=== PATIENT | male | born 1980 | race Caucasian/White ===

== ENCOUNTER → 2016-04-07 | Outpatient (CLI) | payer OTHER ==
[~2016-04-07] MED LIST: DIAZ5TAB PO; HYDR1TAB97 PO; LUNE1TAB5 PO; PRED20TA PO; TRAM50TA2 PO
[2016-04-07 17:43] LABS: BASO % 0.3 % (0.0-1.0); EOS # 0.1 K/mm3 (0.0-0.50); EOS % 0.8 % (0.0-3.0); LARGE UNSTAINED CELL # 0.2 K/mm3 (0.0-0.4); LARGE UNSTAINED CELL % 1.6 % (0.0-4.0); LYMPH # 1.6 K/mm3 (1.5-4.5); MEAN CORPUSCULAR HEMOGLOBIN 30.3 pg (27.0-33.0); MEAN CORPUSCULAR HGB CONC 34.3 g/dl (32.0-36.5); MEAN CORPUSCULAR VOLUME 88.4 fl (80.0-96.0); MONO # 0.7 K/mm3 (0.0-0.8); MONO % 6.7 % (0.0-5.0); NEUTROPHILS # 8.1 K/mm3 (1.8-7.7); NEUTROPHILS % 75.5 % (36.0-66.0); PLATELET COUNT, AUTOMATED 363 k/mm3 (150-450); RED CELL DISTRIBUTION WIDTH 12.5 % (11.5-14.5); WHITE BLOOD COUNT 10.8 K/mm3 (4.0-10.0)
[2016-04-07 18:40] LABS: ALBUMIN 3.5 GM/DL (3.2-5.2); ALKALINE PHOSPHATASE 100 U/L (45-117); ALT/SGPT 50 U/L (12-78); ANION GAP 10 MEQ/L (8-16); AST/SGOT 15 U/L (15-37); BILIRUBIN,TOTAL 0.3 MG/DL (0.2-1.0); BLOOD UREA NITROGEN 16 MG/DL (7-18); CALCIUM LEVEL 8.7 MG/DL (8.5-10.1); CARBON DIOXIDE LEVEL 27 MEQ/L (21-32); CHLORIDE LEVEL 106 MEQ/L (98-107); CREATININE FOR GFR 0.84 MG/DL (0.70-1.30); GLOMERULAR FILTRATION RATE > 60.0 (>60); GLUCOSE, FASTING 92 MG/DL (70-105); POTASSIUM SERUM 4.3 MEQ/L (3.5-5.1); SODIUM LEVEL 143 MEQ/L (136-145)
[2016-04-07 18:58] LABS: ERYTHROCYTE SEDIMENTATION RATE 30 mm/hr (0-15)
--- NOTE | 2016-04-07 19:32 | REP ---
ORBITS, TWO VIEWS: HISTORY: Foreign body. There is no acute fracture, bone lesion or radiopaque foreign body. Mucosal thickening is present in the left maxillary sinus. IMPRESSION: There is no radiopaque foreign body. Signed by Mitch Hernández MD 04/07/2016 07:32 P
== END ==
LOC: M LAB 15:34
PROVIDERS: ATTEND Psychiatry & Neurology Neurology
DX: R51 Headache (principal)

== ENCOUNTER 2016-04-09 21:18 | Emergency (ER) | payer OTHER ==
[2016-04-09] MEDS ORDERED: KETOROLAC 30 MG/ML VIAL (J1885) As Ordered ONE (22:41)
[2016-04-09 23:26] LABS: ALBUMIN 3.3 GM/DL (3.2-5.2); ALBUMIN/GLOBULIN RATIO 0.77 (1.00-1.93); ALKALINE PHOSPHATASE 83 U/L (45-117); ALT/SGPT 33 U/L (12-78); ANION GAP 6 MEQ/L (8-16); AST/SGOT 10 U/L (15-37); BILIRUBIN,DIRECT 0.2 MG/DL (0.0-0.2); BILIRUBIN,TOTAL 0.5 MG/DL (0.2-1.0); BLOOD UREA NITROGEN 10 MG/DL (7-18); CALCIUM LEVEL 8.4 MG/DL (8.5-10.1); CARBON DIOXIDE LEVEL 33 MEQ/L (21-32); CHLORIDE LEVEL 101 MEQ/L (98-107); GLOMERULAR FILTRATION RATE > 60.0 (>60); GLUCOSE, FASTING 88 MG/DL (70-105); POTASSIUM SERUM 3.8 MEQ/L (3.5-5.1); SODIUM LEVEL 140 MEQ/L (136-145); TOTAL PROTEIN 7.6 GM/DL (6.4-8.2)
[2016-04-09 23:48] LABS: BASO % 0.4 % (0.0-1.0); EOS # 0.2 K/mm3 (0.0-0.50); EOS % 1.2 % (0.0-3.0); LARGE UNSTAINED CELL # 0.3 K/mm3 (0.0-0.4); LARGE UNSTAINED CELL % 1.9 % (0.0-4.0); LYMPH # 1.7 K/mm3 (1.5-4.5); LYMPH % 13.2 % (24.0-44.0); MEAN CORPUSCULAR HEMOGLOBIN 30.5 pg (27.0-33.0); MEAN CORPUSCULAR HGB CONC 34.1 g/dl (32.0-36.5); MEAN CORPUSCULAR VOLUME 89.2 fl (80.0-96.0); MONO # 0.9 K/mm3 (0.0-0.8); MONO % 7.2 % (0.0-5.0); NEUTROPHILS # 9.8 K/mm3 (1.8-7.7); NEUTROPHILS % 76.1 % (36.0-66.0); PLATELET COUNT, AUTOMATED 319 k/mm3 (150-450); RED CELL DISTRIBUTION WIDTH 12.2 % (11.5-14.5); WHITE BLOOD COUNT 12.9 K/mm3 (4.0-10.0)
--- NOTE | 2016-04-10 00:31 | EDDOCDS ---
Physician Documentation [facility] Name: Neal Deleon Age: 35 yrs Sex: Male : 1980 Arrival Date: 04/09/2016 Time: 21:18 Bed I2 / M2 Private MD: [facility] Disposition: 04/09/16 23:52 Discharged to Home/Self Care. Impression: Strain of muscle, fascia and tendon of abdomen, lower back and pelvis. - Condition is Stable. - Discharge Instructions: Back Pain, Adult, Muscle Strain. - Prescriptions for [place] 5- 325 mg Oral Tablet - take 1 tablet by ORAL route every 6 hours As needed MDD: 4 tabs; 12 tablet. Valium 5 mg Oral Tablet - take 1 tablet by ORAL route every 8 hours As needed MDD: 3 tabs; 12 tablet. - Work Release Form - 2 day, Medication Reconciliation, Local Pharmacy Hours form. - Follow up: [facility]; When: Call to arrange an appointment; Reason: Recheck today's complaints, Continuance of care. - Problem is new. - Symptoms have improved. Historical: - Allergies: no known allergies; - Home Meds: 1. Zithromax 250 mg Oral tab 1 tab once daily (Last dose: 04/07/2016) 2. tramadol 50 mg Oral TbDL 50 mg as needed (Last dose: 04/09/2016 11:00) 3. prednisone 20 mg Oral tab 2 tabs once daily (Last dose: 04/07/2016) - PMHx: none; - PSHx: none; - Social history: Smoking status: Patient states was never smoker of tobacco. Patient/guardian denies using alcohol, street drugs, No barriers to communication noted, The patient speaks fluent Albanian, Speaks appropriately for age. - Family history: No immediate family members are acutely ill. - : The pt / caregiver states he / she is not on anticoagulants. Home medication list is obtained from the patient. - Exposure Risk Screening:: None identified. Vital Signs: 04/09 21:19 BP 129 / 68; Pulse 108; Resp 20 S; Temp 100.7(O); Pulse Ox 96% ; Weight 86.18 kg / gr2 189.99 lbs (R); Height 70 in. (177.80 cm) (R); Pain 10/10; 04/10 00:10 BP 100 / 55 LA Supine (auto/reg); Pulse 72 MON; Resp 18 S; Temp 98.2(O); Pulse Ox 96% cln on R/A; Pain 0/10; 04/09 21:19 Body Mass Index 27.26 (86.18 kg, 177.80 cm) gr2 MDM: 04/09 22:35 NS 0.9% 1000 ml IV at bolus once ordered. mo1 22:35 ketorolac 30 mg IVP once ordered. mo1 22:35 IV Saline Lock ordered. mo1 22:35 Undress patient appropriately for examination ordered. mo1 22:35 Diazepam 5 mg IVP once ordered. mo1 22:36 Basic Metabolic Profile Ordered. EDMS 22:36 CBC with Diff Ordered. EDMS 22:36 Lipase Ordered. EDMS 22:36 Liver Profile Ordered. EDMS 22:36 Urine Culture Ordered. EDMS 22:36 NOTHING BY MOUTH+DIET ordered. EDMS 23:37 Financial registration complete. [facility] 23:42 Basic Metabolic Profile Reviewed. mo1 23:43 Lipase Reviewed. mo1 23:43 Liver Profile Reviewed. mo1 04/10 00:16 [facility] Payment Agreement was scanned into [employer] and attached to record. [facility] 00:27 CBC with Diff Reviewed. mo1 Administered Medications: 04/09 22:54 Drug: Diazepam 5 mg [diazepam 5 mg/mL injection syringe (1 mL)] Route: IVP; Site: right rs3 antecubital; 22:55 Drug: NS 0.9% 1000 ml [sodium chloride 0.9 % intravenous solution] Route: IV; Rate: rs3 bolus; Site: right antecubital; 04/10 00:28 Follow up: IV Status: Completed infusion; IV Intake: 1000ml nn1 04/09 22:55 Drug: ketorolac 30 mg [ketorolac 30 mg/mL (1 mL) injection solution (1 mL)] Route: IVP; rs3 Site: right antecubital; Signatures: Dispatcher [employer] EDShahnaz Boykin RN RN ttCatrachito Snowden PA PA mo1 Zora Coats [facility] Jose Garcia RN RN nn1 Sissy Mujica RN rs3 The chart was reviewed and I authenticate all verbal orders and agree with the evaluation and treatment provided.Corrections: (The following items were deleted from the chart) 04/10 00:28 04/09 22:36 URINALYSIS+LAB ordered. EDMS EDMS Attachments: 04/10 00:16 [facility] Payment Agreement [facility] MTDD
--- NOTE | 2016-04-10 00:31 | EDDOCDS ---
Nurse's Notes [facility] Name: Neal Deleon Age: 35 yrs Sex: Male : 1980 Arrival Date: 04/09/2016 Time: 21:18 Bed I2 / M2 [facility] Strain of muscle, fascia and tendon of abdomen, lower back and pelvis Presentation: 04/09 21:25 Presenting complaint: Patient states: right sided back and flank pain -- radiates down ttb right leg x3 weeks -- worse today. Acute neurological deficits are not present. Mechanism of Injury: No Mechanism of Injury. Adult Sepsis Screening: The patient does not have new or worsening altered mentation. Patient's respiratory rate is less than 22. Systolic blood pressure is greater than 100. Patient has a qSOFA score of 0- Negative Sepsis Screen. Suicide/Homicide risk assessment- the patient denies having any suicidal and/or homicidal ideations and does not present with any other emotional, behavioral or mental health complaints. 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 Transition of care: patient was not received from another setting of care. 21:25 Acuity: BI Level 3 ttb 21:25 Method Of Arrival: Walkin/Carried/Asstd ttb Triage Assessment: 21:27 General: Appears uncomfortable, well nourished, well groomed, Behavior is anxious, ttb appropriate for age, cooperative, pleasant, restless. Pain: Location: right lower back pain , radiates to right leg, 7/10. HIV screening NA for this visit Offered previously. Neurological: Level of Consciousness is awake, alert, Moves all extremities. Gait is steady, Speech is normal, Facial symmetry appears normal. EENT: Denies nasal congestion, nasal discharge. Cardiovascular: Chest pain is denied. Respiratory: Airway is patent Respiratory effort is even, unlabored, Reports cough that is non-productive, Denies shortness of breath. GI: Denies constipation, diarrhea, nausea, vomiting, pain. : Denies burning with urination, discharge, inability to void, pain urinary frequency, urgency. Musculoskeletal: Range of motion intact in all extremities. Reports pain in right lower back/flank. Injury Description: No known injury. Historical: - Allergies: no known allergies; - Home Meds: 1. Zithromax 250 mg Oral tab 1 tab once daily (Last dose: 04/07/2016) 2. tramadol 50 mg Oral TbDL 50 mg as needed (Last dose: 04/09/2016 11:00) 3. prednisone 20 mg Oral tab 2 tabs once daily (Last dose: 04/07/2016) - PMHx: none; - PSHx: none; - Social history: Smoking status: Patient states was never smoker of tobacco. Patient/guardian denies using alcohol, street drugs, No barriers to communication noted, The patient speaks fluent Uzbek, Speaks appropriately for age. - Family history: No immediate family members are acutely ill. - : The pt / caregiver states he / she is not on anticoagulants. Home medication list is obtained from the patient. - Exposure Risk Screening:: None identified. Screenin:46 Screening information is obtained from the patient. Fall risk: No risks identified. rs3 Assistance ADL's: requires no assistance with activities of daily living. Abuse/DV Screen: The patient / caregiver reports he/she is: not in a situation that causes fear, pain or injury. Nutritional screening: No deficits noted. Advance Directives: Currently, there is no health care proxy. home support is adequate. Assessment: 22:46 General: Appears in no apparent distress, Behavior is appropriate for age. Pain: rs3 Location: right low back. Respiratory: Airway is patent Respiratory effort is even, unlabored, Respiratory pattern is regular, symmetrical. Musculoskeletal: Circulation, motion, and sensation intact Signs and Symptoms of Compartment Syndrome: no signs of compartment syndrome Reports pain in right low back radiation to right gluteus fish. 22:57 General: Appears uncomfortable, well developed, well nourished, well groomed, Behavior ka4 is appropriate for age, cooperative, pleasant. Neurological: Level of Consciousness is awake, alert, obeys commands, Oriented to person, place, time, [employer] are equal bilaterally Moves all extremities. Gait is steady, Speech is normal, Facial symmetry appears normal, Facial symmetry: tongue is midline. Respiratory: Airway is patent Respiratory effort is even, unlabored, Respiratory pattern is regular, symmetrical. Derm: Skin is intact, is healthy with good turgor, Skin is pink, warm & dry. 04/10 00:25 General: Appears in no apparent distress, comfortable, Behavior is appropriate for age, nn1 cooperative. Neurological: Level of Consciousness is awake, alert, Oriented to person, place, time. Respiratory: Airway is patent Respiratory effort is even, unlabored, Respiratory pattern is regular, symmetrical. Derm: Skin is pink, warm & dry. Vital Signs: 04/09 21:19 BP 129 / 68; Pulse 108; Resp 20 S; Temp 100.7(O); Pulse Ox 96% ; Weight 86.18 kg (R); gr2 Height 70 in. (177.80 cm) (R); Pain 10/10; 04/10 00:10 BP 100 / 55 LA Supine (auto/reg); Pulse 72 MON; Resp 18 S; Temp 98.2(O); Pulse Ox 96% cln on R/A; Pain 0/10; 04/09 21:19 Body Mass Index 27.26 (86.18 kg, 177.80 cm) gr2 Vitals: 04/09 21:19 Log In Time: April 09, 2016 at 21:19. gr2 ED Course: 21:18 Patient visited by Kuldeep Chowdhury. gr2 21:18 Patient moved to Waiting gr2 21:19 [facility] is Private Physician. gr2 21:20 Patient moved to Pre RCE gr2 21:26 Triage Initiated ttb 21:30 Patient visited by Shahnaz Moya RN. ttb 21:43 Patient moved to Triage 2 jmb 22:09 Catrachito Rea PA is PHCP. mo1 22:09 Sergio Lyman DO is Attending Physician. mo1 22:35 Patient visited by Catrachito Rea PA. mo1 22:36 Patient moved to I2 / M2 jmb 22:55 Basic Metabolic Profile Sent. rs3 22:55 CBC with Diff Sent. rs3 22:55 Lipase Sent. rs3 22:56 Liver Profile Sent. ka4 22:56 Inserted saline lock: 20 gauge in right antecubital area and blood collected. The ka4 patient tolerated the procedure well. 22:58 Patient visited by Tomasa Pereyra LPN. ka4 22:58 Patient visited by Tomasa Pereyra LPN. ka4 22:58 Labs drawn. (by ED staff). Sent per order to lab. ka4 23:52 [facility] is Referral Physician. mo1 04/10 00:11 Patient visited by Stephy Yanez PCA. cln 00:16 [facility] Payment Agreement was scanned into [employer] and attached to record. [facility] 00:29 The patient / caregiver is instructed regarding the plan of care and ED course. nn1 00:29 No procedures done that require assistance. nn1 Administered Medications: 04/09 22:54 Drug: Diazepam 5 mg [diazepam 5 mg/mL injection syringe (1 mL)] Route: IVP; Site: right rs3 antecubital; 22:55 Drug: NS 0.9% 1000 ml [sodium chloride 0.9 % intravenous solution] Route: IV; Rate: rs3 bolus; Site: right antecubital; 04/10 00:28 Follow up: IV Status: Completed infusion; IV Intake: 1000ml nn1 04/09 22:55 Drug: ketorolac 30 mg [ketorolac 30 mg/mL (1 mL) injection solution (1 mL)] Route: IVP; rs3 Site: right antecubital; Intake: 04/10 00:28 IV: 1000.00ml; Total: 1000.00ml. nn1 Order Results: Lab Order: Basic Metabolic Profile; [facility] 04[facility] 22:48 Test: GLUCOSE, FASTING; Value: 88; Range: 70-105; Units: MG/DL; Status: F Test: BLOOD UREA NITROGEN; Value: 10; Range: 7-18; Units: MG/DL; Status: F Test: CREATININE FOR GFR; Value: 1.10; Range: 0.70-1.30; Units: MG/DL; Status: F Test: GLOMERULAR FILTRATION RATE; Value: > 60.0; Range: >60; Status: F Test: SODIUM LEVEL; Value: 140; Range: 136-145; Units: MEQ/L; Status: F Test: POTASSIUM SERUM; Value: 3.8; Range: 3.5-5.1; Units: MEQ/L; Status: F Test: CHLORIDE LEVEL; Value: 101; Range: 98-107; Units: MEQ/L; Status: F Test: CARBON DIOXIDE LEVEL; Value: 33; Range: 21-32; Abnormal: Above high normal; Units: MEQ/L; Status: F Test: ANION GAP; Value: 6; Range: 8-16; Abnormal: Below low normal; Units: MEQ/L; Status: F Test: CALCIUM LEVEL; Value: 8.4; Range: 8.5-10.1; Abnormal: Below low normal; Units: MG/DL; Status: F Test Note: ; Units are mL/min/1.73 m2 Chronic Kidney Disease Staging per NKF: Stage I & II GFR >=60 Normal to Mildly Decreased Stage III GFR 30-59 Moderately Decreased Stage IV GFR 15-29 Severely Decreased Stage V GFR <15 Very Little GFR Left ESRD GFR <15 on DIRECTOR NICU Lab Order: CBC with Diff; SPEC'M 04/09/16 22:48 Test: WHITE BLOOD COUNT; Value: 12.9; Range: 4.0-10.0; Abnormal: Above high normal; Units: K/mm3; Status: F Test: RED BLOOD COUNT; Value: 5.18; Range: 4.30-6.10; Units: M/mm3; Status: F Test: HEMOGLOBIN; Value: 15.8; Range: 14.0-18.0; Units: g/dl; Status: F Test: HEMATOCRIT; Value: 46.2; Range: 42.0-52.0; Units: %; Status: F Test: MEAN CORPUSCULAR VOLUME; Value: 89.2; Range: 80.0-96.0; Units: fl; Status: F Test: MEAN CORPUSCULAR HEMOGLOBIN; Value: 30.5; Range: 27.0-33.0; Units: pg; Status: F Test: MEAN CORPUSCULAR HGB CONC; Value: 34.1; Range: 32.0-36.5; Units: g/dl; Status: F Test: RED CELL DISTRIBUTION WIDTH; Value: 12.2; Range: 11.5-14.5; Units: %; Status: F Test: PLATELET COUNT, AUTOMATED; Value: 319; Range: 150-450; Units: k/mm3; Status: F Test: NEUTROPHILS %; Value: 76.1; Range: 36.0-66.0; Abnormal: Above high normal; Units: %; Status: F Test: LYMPH %; Value: 13.2; Range: 24.0-44.0; Abnormal: Below low normal; Units: %; Status: F Test: MONO %; Value: 7.2; Range: 0.0-5.0; Abnormal: Above high normal; Units: %; Status: F Test: EOS %; Value: 1.2; Range: 0.0-3.0; Units: %; Status: F Test: BASO %; Value: 0.4; Range: 0.0-1.0; Units: %; Status: F Test: LARGE UNSTAINED CELL %; Value: 1.9; Range: 0.0-4.0; Units: %; Status: F Test: NEUTROPHILS #; Value: 9.8; Range: 1.8-7.7; Abnormal: Above high normal; Units: K/mm3; Status: F Test: LYMPH #; Value: 1.7; Range: 1.5-4.5; Units: K/mm3; Status: F Test: MONO #; Value: 0.9; Range: 0.0-0.8; Abnormal: Above high normal; Units: K/mm3; Status: F Test: EOS #; Value: 0.2; Range: 0.0-0.50; Units: K/mm3; Status: F Test: BASO #; Value: 0.0; Range: 0.0-0.2; Units: K/mm3; Status: F Test: LARGE UNSTAINED CELL #; Value: 0.3; Range: 0.0-0.4; Units: K/mm3; Status: F Lab Order: Lipase; SPEC'M 04/09/16 22:48 Test: LIPASE; Value: 68; Range: 73-393; Abnormal: Below low normal; Units: U/L; Status: F Lab Order: Liver Profile; SPEC'M 04/09/16 22:48 Test: AST/SGOT; Value: 10; Range: 15-37; Abnormal: Below low normal; Units: U/L; Status: F Test: ALT/SGPT; Value: 33; Range: 12-78; Units: U/L; Status: F Test: ALKALINE PHOSPHATASE; Value: 83; Range: 45-117; Units: U/L; Status: F Test: BILIRUBIN,TOTAL; Value: 0.5; Range: 0.2-1.0; Abnormal: Delta; Units: MG/DL; Status: F Test: BILIRUBIN,DIRECT; Value: 0.2; Range: 0.0-0.2; Units: MG/DL; Status: F Test: TOTAL PROTEIN; Value: 7.6; Range: 6.4-8.2; Units: GM/DL; Status: F Test: ALBUMIN; Value: 3.3; Range: 3.2-5.2; Units: GM/DL; Status: F Test: ALBUMIN/GLOBULIN RATIO; Value: 0.77; Range: 1.00-1.93; Abnormal: Below low normal; Status: F Outcome: 04/09 23:52 Discharge ordered by Provider. mo1 04/10 00:26 Discharge Assessment: Patient awake, alert and oriented x 3. No cognitive and/or nn1 functional deficits noted. Patient verbalized understanding of disposition instructions. patient administered narcotics - yes. Pt provided with safe discharge. 00:28 The following High Risk Discharge criteria are identified: None. Discharged to home nn1 ambulatory, with family. Condition: stable. No special radiology studies were completed. Property :Personal belongings accompany Pt. 00:29 Prescriptions given X 2, Work note provided to patient. nn1 00:29 Patient left the ED. nn1 Signatures: Sissy MujicaRN RN rs3 Shahnaz Moya RN RN Kuldeep Colbert gr2 Catrachito Rea PA PA mo1 Shane Crisostomo,RN RN Tomasa Osborn LPN LPN ka4 Hook, Sandra slh Nunez, NikkoleRN RN nn1 Stephy Yanez, [employer] LABORATORY ASSISTANT cln MTDD
--- NOTE | 2016-04-12 01:31 | EDDOCDS ---
Nurse's Notes [facility] Name: Neal Deleon Age: 35 yrs Sex: Male : 1980 Arrival Date: 04/09/2016 Time: 21:18 Bed I2 / M2 [facility] Diagnosis: Strain of muscle, fascia and tendon of abdomen, lower back and pelvis Presentation: 04/09 21:25 Presenting complaint: Patient states: right sided back and flank pain -- radiates down ttb right leg x3 weeks -- worse today. Acute neurological deficits are not present. Mechanism of Injury: No Mechanism of Injury. Adult Sepsis Screening: The patient does not have new or worsening altered mentation. Patient's respiratory rate is less than 22. Systolic blood pressure is greater than 100. Patient has a qSOFA score of 0- Negative Sepsis Screen. Suicide/Homicide risk assessment- the patient denies having any suicidal and/or homicidal ideations and does not present with any other emotional, behavioral or mental health complaints. 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 Transition of care: patient was not received from another setting of care. 21:25 Acuity: BI Level 3 ttb 21:25 Method Of Arrival: Walkin/Carried/Asstd ttb Triage Assessment: 21:27 General: Appears uncomfortable, well nourished, well groomed, Behavior is anxious, ttb appropriate for age, cooperative, pleasant, restless. Pain: Location: right lower back pain , radiates to right leg, 7/10. HIV screening NA for this visit Offered previously. Neurological: Level of Consciousness is awake, alert, Moves all extremities. Gait is steady, Speech is normal, Facial symmetry appears normal. EENT: Denies nasal congestion, nasal discharge. Cardiovascular: Chest pain is denied. Respiratory: Airway is patent Respiratory effort is even, unlabored, Reports cough that is non-productive, Denies shortness of breath. GI: Denies constipation, diarrhea, nausea, vomiting, pain. : Denies burning with urination, discharge, inability to void, pain urinary frequency, urgency. Musculoskeletal: Range of motion intact in all extremities. Reports pain in right lower back/flank. Injury Description: No known injury. Historical: - Allergies: no known allergies; - Home Meds: 1. Zithromax 250 mg Oral tab 1 tab once daily (Last dose: 04/07/2016) 2. tramadol 50 mg Oral TbDL 50 mg as needed (Last dose: 04/09/2016 11:00) 3. prednisone 20 mg Oral tab 2 tabs once daily (Last dose: 04/07/2016) - PMHx: none; - PSHx: none; - Social history: Smoking status: Patient states was never smoker of tobacco. Patient/guardian denies using alcohol, street drugs, No barriers to communication noted, The patient speaks fluent Wolof, Speaks appropriately for age. - Family history: No immediate family members are acutely ill. - : The pt / caregiver states he / she is not on anticoagulants. Home medication list is obtained from the patient. - Exposure Risk Screening:: None identified. Screenin:46 Screening information is obtained from the patient. Fall risk: No risks identified. rs3 Assistance ADL's: requires no assistance with activities of daily living. Abuse/DV Screen: The patient / caregiver reports he/she is: not in a situation that causes fear, pain or injury. Nutritional screening: No deficits noted. Advance Directives: Currently, there is no health care proxy. home support is adequate. Assessment: 22:46 General: Appears in no apparent distress, Behavior is appropriate for age. Pain: rs3 Location: right low back. Respiratory: Airway is patent Respiratory effort is even, unlabored, Respiratory pattern is regular, symmetrical. Musculoskeletal: Circulation, motion, and sensation intact Signs and Symptoms of Compartment Syndrome: no signs of compartment syndrome Reports pain in right low back radiation to right gluteus fish. 22:57 General: Appears uncomfortable, well developed, well nourished, well groomed, Behavior ka4 is appropriate for age, cooperative, pleasant. Neurological: Level of Consciousness is awake, alert, obeys commands, Oriented to person, place, time, Tso are equal bilaterally Moves all extremities. Gait is steady, Speech is normal, Facial symmetry appears normal, Facial symmetry: tongue is midline. Respiratory: Airway is patent Respiratory effort is even, unlabored, Respiratory pattern is regular, symmetrical. Derm: Skin is intact, is healthy with good turgor, Skin is pink, warm & dry. 04/10 00:25 General: Appears in no apparent distress, comfortable, Behavior is appropriate for age, nn1 cooperative. Neurological: Level of Consciousness is awake, alert, Oriented to person, place, time. Respiratory: Airway is patent Respiratory effort is even, unlabored, Respiratory pattern is regular, symmetrical. Derm: Skin is pink, warm & dry. Vital Signs: 04/09 21:19 BP 129 / 68; Pulse 108; Resp 20 S; Temp 100.7(O); Pulse Ox 96% ; Weight 86.18 kg (R); gr2 Height 70 in. (177.80 cm) (R); Pain 10/10; 04/10 00:10 BP 100 / 55 LA Supine (auto/reg); Pulse 72 MON; Resp 18 S; Temp 98.2(O); Pulse Ox 96% cln on R/A; Pain 0/10; 04/09 21:19 Body Mass Index 27.26 (86.18 kg, 177.80 cm) gr2 Vitals: 04/09 21:19 Log In Time: April 09, 2016 at 21:19. gr2 ED Course: 21:18 Patient visited by Kuldeep Chowdhury. gr2 21:18 Patient moved to Waiting gr2 21:19 [facility] is Private Physician. gr2 21:20 Patient moved to Pre RCE gr2 21:26 Triage Initiated ttb 21:30 Patient visited by Shahnaz Moya RN. ttb 21:43 Patient moved to Triage 2 jmb 22:09 Catrachito Rea PA is PHCP. mo1 22:09 Sergio Lyman DO is Attending Physician. mo1 22:35 Patient visited by Catrachito Rea PA. mo1 22:36 Patient moved to I2 / M2 jmb 22:55 Basic Metabolic Profile Sent. rs3 22:55 CBC with Diff Sent. rs3 22:55 Lipase Sent. rs3 22:56 Liver Profile Sent. ka4 22:56 Inserted saline lock: 20 gauge in right antecubital area and blood collected. The ka4 patient tolerated the procedure well. 22:58 Patient visited by Tomasa Pereyra LPN. ka4 22:58 Patient visited by Tomasa Pereyra LPN. ka4 22:58 Labs drawn. (by ED staff). Sent per order to lab. ka4 23:52 [facility] is Referral Physician. mo1 04/10 00:11 Patient visited by Stephy Yanez PCA. cln 00:16 [facility] Payment Agreement was scanned into [employer] and attached to record. [facility] 00:29 The patient / caregiver is instructed regarding the plan of care and ED course. nn1 00:29 No procedures done that require assistance. nn1 07:19 T-Sheet-- Draft Copy was scanned into [employer] and attached to record. gb Administered Medications: 04/09 22:54 Drug: Diazepam 5 mg [diazepam 5 mg/mL injection syringe (1 mL)] Route: IVP; Site: right rs3 antecubital; 22:55 Drug: NS 0.9% 1000 ml [sodium chloride 0.9 % intravenous solution] Route: IV; Rate: rs3 bolus; Site: right antecubital; 04/10 00:28 Follow up: IV Status: Completed infusion; IV Intake: 1000ml nn1 04/09 22:55 Drug: ketorolac 30 mg [ketorolac 30 mg/mL (1 mL) injection solution (1 mL)] Route: IVP; rs3 Site: right antecubital; Intake: 04/10 00:28 IV: 1000.00ml; Total: 1000.00ml. nn1 Order Results: Lab Order: Basic Metabolic Profile; SPEC'M 04/09/16 22:48 Test: GLUCOSE, FASTING; Value: 88; Range: 70-105; Units: MG/DL; Status: F Test: BLOOD UREA NITROGEN; Value: 10; Range: 7-18; Units: MG/DL; Status: F Test: CREATININE FOR GFR; Value: 1.10; Range: 0.70-1.30; Units: MG/DL; Status: F Test: GLOMERULAR FILTRATION RATE; Value: > 60.0; Range: >60; Status: F Test: SODIUM LEVEL; Value: 140; Range: 136-145; Units: MEQ/L; Status: F Test: POTASSIUM SERUM; Value: 3.8; Range: 3.5-5.1; Units: MEQ/L; Status: F Test: CHLORIDE LEVEL; Value: 101; Range: 98-107; Units: MEQ/L; Status: F Test: CARBON DIOXIDE LEVEL; Value: 33; Range: 21-32; Abnormal: Above high normal; Units: MEQ/L; Status: F Test: ANION GAP; Value: 6; Range: 8-16; Abnormal: Below low normal; Units: MEQ/L; Status: F Test: CALCIUM LEVEL; Value: 8.4; Range: 8.5-10.1; Abnormal: Below low normal; Units: MG/DL; Status: F Test Note: ; Units are mL/min/1.73 m2 Chronic Kidney Disease Staging per NKF: Stage I & II GFR >=60 Normal to Mildly Decreased Stage III GFR 30-59 Moderately Decreased Stage IV GFR 15-29 Severely Decreased Stage V GFR <15 Very Little GFR Left ESRD GFR <15 on NEUROSURGERY PHYSICIAN Lab Order: CBC with Diff; SPEC'M 04/09/16 22:48 Test: WHITE BLOOD COUNT; Value: 12.9; Range: 4.0-10.0; Abnormal: Above high normal; Units: K/mm3; Status: F Test: RED BLOOD COUNT; Value: 5.18; Range: 4.30-6.10; Units: M/mm3; Status: F Test: HEMOGLOBIN; Value: 15.8; Range: 14.0-18.0; Units: g/dl; Status: F Test: HEMATOCRIT; Value: 46.2; Range: 42.0-52.0; Units: %; Status: F Test: MEAN CORPUSCULAR VOLUME; Value: 89.2; Range: 80.0-96.0; Units: fl; Status: F Test: MEAN CORPUSCULAR HEMOGLOBIN; Value: 30.5; Range: 27.0-33.0; Units: pg; Status: F Test: MEAN CORPUSCULAR HGB CONC; Value: 34.1; Range: 32.0-36.5; Units: g/dl; Status: F Test: RED CELL DISTRIBUTION WIDTH; Value: 12.2; Range: 11.5-14.5; Units: %; Status: F Test: PLATELET COUNT, AUTOMATED; Value: 319; Range: 150-450; Units: k/mm3; Status: F Test: NEUTROPHILS %; Value: 76.1; Range: 36.0-66.0; Abnormal: Above high normal; Units: %; Status: F Test: LYMPH %; Value: 13.2; Range: 24.0-44.0; Abnormal: Below low normal; Units: %; Status: F Test: MONO %; Value: 7.2; Range: 0.0-5.0; Abnormal: Above high normal; Units: %; Status: F Test: EOS %; Value: 1.2; Range: 0.0-3.0; Units: %; Status: F Test: BASO %; Value: 0.4; Range: 0.0-1.0; Units: %; Status: F Test: LARGE UNSTAINED CELL %; Value: 1.9; Range: 0.0-4.0; Units: %; Status: F Test: NEUTROPHILS #; Value: 9.8; Range: 1.8-7.7; Abnormal: Above high normal; Units: K/mm3; Status: F Test: LYMPH #; Value: 1.7; Range: 1.5-4.5; Units: K/mm3; Status: F Test: MONO #; Value: 0.9; Range: 0.0-0.8; Abnormal: Above high normal; Units: K/mm3; Status: F Test: EOS #; Value: 0.2; Range: 0.0-0.50; Units: K/mm3; Status: F Test: BASO #; Value: 0.0; Range: 0.0-0.2; Units: K/mm3; Status: F Test: LARGE UNSTAINED CELL #; Value: 0.3; Range: 0.0-0.4; Units: K/mm3; Status: F Lab Order: Lipase; SPEC'M 04/09/16 22:48 Test: LIPASE; Value: 68; Range: 73-393; Abnormal: Below low normal; Units: U/L; Status: F Lab Order: Liver Profile; SPEC'M 04/09/16 22:48 Test: AST/SGOT; Value: 10; Range: 15-37; Abnormal: Below low normal; Units: U/L; Status: F Test: ALT/SGPT; Value: 33; Range: 12-78; Units: U/L; Status: F Test: ALKALINE PHOSPHATASE; Value: 83; Range: 45-117; Units: U/L; Status: F Test: BILIRUBIN,TOTAL; Value: 0.5; Range: 0.2-1.0; Abnormal: Delta; Units: MG/DL; Status: F Test: BILIRUBIN,DIRECT; Value: 0.2; Range: 0.0-0.2; Units: MG/DL; Status: F Test: TOTAL PROTEIN; Value: 7.6; Range: 6.4-8.2; Units: GM/DL; Status: F Test: ALBUMIN; Value: 3.3; Range: 3.2-5.2; Units: GM/DL; Status: F Test: ALBUMIN/GLOBULIN RATIO; Value: 0.77; Range: 1.00-1.93; Abnormal: Below low normal; Status: F Outcome: 04/09 23:52 Discharge ordered by Provider. mo1 04/10 00:26 Discharge Assessment: Patient awake, alert and oriented x 3. No cognitive and/or nn1 functional deficits noted. Patient verbalized understanding of disposition instructions. patient administered narcotics - yes. Pt provided with safe discharge. 00:28 The following High Risk Discharge criteria are identified: None. Discharged to home nn1 ambulatory, with family. Condition: stable. No special radiology studies were completed. Property :Personal belongings accompany Pt. 00:29 Prescriptions given X 2, Work note provided to patient. nn1 00:29 Patient left the ED. nn1 Signatures: Lissette Carter, Reg Reg gb Sissy Mujica,RN RN rs3 Shahnaz Moya RN RN Kuldeep Colbert Michael, PA PA mo1 Shane Crisostomo,RN RN Tomasa Osborn LPN LPN Zora Zaman NikkoleRN RN nn1 Stephy Yanez, LEASE ATTENDANT LEASE ATTENDANT cln Chart Complete MTDD
--- NOTE | 2016-04-12 01:31 | EDDOCDS ---
Physician Documentation [facility] Name: Neal Deleon Age: 35 yrs Sex: Male : 1980 Arrival Date: 04/09/2016 Time: 21:18 Bed I2 / M2 Private MD: [facility] [place] Disposition: 04/09/16 23:52 Discharged to Home/Self Care. Impression: Strain of muscle, fascia and tendon of abdomen, lower back and pelvis. - Condition is Stable. - Discharge Instructions: Back Pain, Adult, Muscle Strain. - Prescriptions for Morrice 5- 325 mg Oral Tablet - take 1 tablet by ORAL route every 6 hours As needed MDD: 4 tabs; 12 tablet. Valium 5 mg Oral Tablet - take 1 tablet by ORAL route every 8 hours As needed MDD: 3 tabs; 12 tablet. - Work Release Form - 2 day, Medication Reconciliation, Local Pharmacy Hours form. - Follow up: [facility] [place]; When: Call to arrange an appointment; Reason: Recheck today's complaints, Continuance of care. - Problem is new. - Symptoms have improved. Historical: - Allergies: no known allergies; - Home Meds: 1. Zithromax 250 mg Oral tab 1 tab once daily (Last dose: 04/07/2016) 2. tramadol 50 mg Oral TbDL 50 mg as needed (Last dose: 04/09/2016 11:00) 3. prednisone 20 mg Oral tab 2 tabs once daily (Last dose: 04/07/2016) - PMHx: none; - PSHx: none; - Social history: Smoking status: Patient states was never smoker of tobacco. Patient/guardian denies using alcohol, street drugs, No barriers to communication noted, The patient speaks fluent Danish, Speaks appropriately for age. - Family history: No immediate family members are acutely ill. - : The pt / caregiver states he / she is not on anticoagulants. Home medication list is obtained from the patient. - Exposure Risk Screening:: None identified. Vital Signs: 04/09 21:19 BP 129 / 68; Pulse 108; Resp 20 S; Temp 100.7(O); Pulse Ox 96% ; Weight 86.18 kg / gr2 189.99 lbs (R); Height 70 in. (177.80 cm) (R); Pain 10/10; 04/10 00:10 BP 100 / 55 LA Supine (auto/reg); Pulse 72 MON; Resp 18 S; Temp 98.2(O); Pulse Ox 96% cln on R/A; Pain 0/10; 04/09 21:19 Body Mass Index 27.26 (86.18 kg, 177.80 cm) gr2 MDM: 04/09 22:35 NS 0.9% 1000 ml IV at bolus once ordered. mo1 22:35 ketorolac 30 mg IVP once ordered. mo1 22:35 IV Saline Lock ordered. mo1 22:35 Undress patient appropriately for examination ordered. mo1 22:35 Diazepam 5 mg IVP once ordered. mo1 22:36 Basic Metabolic Profile Ordered. EDMS 22:36 CBC with Diff Ordered. EDMS 22:36 Lipase Ordered. EDMS 22:36 Liver Profile Ordered. EDMS 22:36 Urine Culture Ordered. EDMS 22:36 NOTHING BY MOUTH+DIET ordered. EDMS 23:37 Financial registration complete. [facility] 23:42 Basic Metabolic Profile Reviewed. mo1 23:43 Lipase Reviewed. mo1 23:43 Liver Profile Reviewed. mo1 04/10 00:16 [facility] Payment Agreement was scanned into [employer] and attached to record. [facility] 00:27 CBC with Diff Reviewed. mo1 07:19 T-Sheet-- Draft Copy was scanned into [employer] and attached to record. gb Administered Medications: 04/09 22:54 Drug: Diazepam 5 mg [diazepam 5 mg/mL injection syringe (1 mL)] Route: IVP; Site: right rs3 antecubital; 22:55 Drug: NS 0.9% 1000 ml [sodium chloride 0.9 % intravenous solution] Route: IV; Rate: rs3 bolus; Site: right antecubital; 04/10 00:28 Follow up: IV Status: Completed infusion; IV Intake: 1000ml nn1 04/09 22:55 Drug: ketorolac 30 mg [ketorolac 30 mg/mL (1 mL) injection solution (1 mL)] Route: IVP; rs3 Site: right antecubital; Signatures: Dispatcher [employer] EDMS Lissette Carter, Reg Reg gb Shahnaz Moya, MARINA RN ttb Catrachito Rea PA PA mo1 Zora Coats [facility] Jose GarciaRN RN nn1 Sissy Mujica RN rs3 The chart was reviewed and I authenticate all verbal orders and agree with the evaluation and treatment provided.Corrections: (The following items were deleted from the chart) 04/10 00:28 04/09 22:36 URINALYSIS+LAB ordered. EDMS EDMS Attachments: 04/10 00:16 [facility] Payment Agreement [facility] 07:19 T-Sheet-- Draft Copy gb Chart Complete MTDD
--- NOTE | 2016-04-12 01:31 | EDDOCDS ---
Physician Documentation [facility] Name: Neal Deleon Age: 35 yrs Sex: Male : 1980 Arrival Date: 04/09/2016 Time: 21:18 Bed I2 / M2 Private MD: [facility] [place] Disposition: 04/09/16 23:52 Discharged to Home/Self Care. Impression: Strain of muscle, fascia and tendon of abdomen, lower back and pelvis. - Condition is Stable. - Discharge Instructions: Back Pain, Adult, Muscle Strain. - Prescriptions for Os[place] 5- 325 mg Oral Tablet - take 1 tablet by ORAL route every 6 hours As needed MDD: 4 tabs; 12 tablet. Valium 5 mg Oral Tablet - take 1 tablet by ORAL route every 8 hours As needed MDD: 3 tabs; 12 tablet. - Work Release Form - 2 day, Medication Reconciliation, Local Pharmacy Hours form. - Follow up: [facility] [place]; When: Call to arrange an appointment; Reason: Recheck today's complaints, Continuance of care. - Problem is new. - Symptoms have improved. Historical: - Allergies: no known allergies; - Home Meds: 1. Zithromax 250 mg Oral tab 1 tab once daily (Last dose: 04/07/2016) 2. tramadol 50 mg Oral TbDL 50 mg as needed (Last dose: 04/09/2016 11:00) 3. prednisone 20 mg Oral tab 2 tabs once daily (Last dose: 04/07/2016) - PMHx: none; - PSHx: none; - Social history: Smoking status: Patient states was never smoker of tobacco. Patient/guardian denies using alcohol, street drugs, No barriers to communication noted, The patient speaks fluent Azeri, Speaks appropriately for age. - Family history: No immediate family members are acutely ill. - : The pt / caregiver states he / she is not on anticoagulants. Home medication list is obtained from the patient. - Exposure Risk Screening:: None identified. Vital Signs: 04/09 21:19 BP 129 / 68; Pulse 108; Resp 20 S; Temp 100.7(O); Pulse Ox 96% ; Weight 86.18 kg / gr2 189.99 lbs (R); Height 70 in. (177.80 cm) (R); Pain 10/10; 04/10 00:10 BP 100 / 55 LA Supine (auto/reg); Pulse 72 MON; Resp 18 S; Temp 98.2(O); Pulse Ox 96% cln on R/A; Pain 0/10; 04/09 21:19 Body Mass Index 27.26 (86.18 kg, 177.80 cm) gr2 MDM: 04/09 22:35 NS 0.9% 1000 ml IV at bolus once ordered. mo1 22:35 ketorolac 30 mg IVP once ordered. mo1 22:35 IV Saline Lock ordered. mo1 22:35 Undress patient appropriately for examination ordered. mo1 22:35 Diazepam 5 mg IVP once ordered. mo1 22:36 Basic Metabolic Profile Ordered. EDMS 22:36 CBC with Diff Ordered. EDMS 22:36 Lipase Ordered. EDMS 22:36 Liver Profile Ordered. EDMS 22:36 Urine Culture Ordered. EDMS 22:36 NOTHING BY MOUTH+DIET ordered. EDMS 23:37 Financial registration complete. [facility] 23:42 Basic Metabolic Profile Reviewed. mo1 23:43 Lipase Reviewed. mo1 23:43 Liver Profile Reviewed. mo1 04/10 00:16 [facility] Payment Agreement was scanned into [employer] and attached to record. [facility] 00:27 CBC with Diff Reviewed. mo1 07:19 T-Sheet-- Draft Copy was scanned into [employer] and attached to record. gb Administered Medications: 04/09 22:54 Drug: Diazepam 5 mg [diazepam 5 mg/mL injection syringe (1 mL)] Route: IVP; Site: right rs3 antecubital; 22:55 Drug: NS 0.9% 1000 ml [sodium chloride 0.9 % intravenous solution] Route: IV; Rate: rs3 bolus; Site: right antecubital; 04/10 00:28 Follow up: IV Status: Completed infusion; IV Intake: 1000ml nn1 04/09 22:55 Drug: ketorolac 30 mg [ketorolac 30 mg/mL (1 mL) injection solution (1 mL)] Route: IVP; rs3 Site: right antecubital; Signatures: Dispatcher [employer] EDMS Lissette Carter, Reg Reg gb Shahnaz Moya, MARINA RN ttb Catrachito Rea PA PA mo1 Zora Coats [facility] Jose GarciaRN RN nn1 Sissy Mujica RN rs3 The chart was reviewed and I authenticate all verbal orders and agree with the evaluation and treatment provided.Corrections: (The following items were deleted from the chart) 04/10 00:28 04/09 22:36 URINALYSIS+LAB ordered. EDMS EDMS Attachments: 04/10 00:16 [facility] Payment Agreement [facility] 07:19 T-Sheet-- Draft Copy gb Chart Complete MTDD
[2016-04-13] MEDS ORDERED: HYDR1TAB97 PO (02:51)
== END 2016-04-10 00:29 | disposition home or self-care (01) ==
LOC: M ED 21:18
DX: S39.012A Strain of muscle, fascia and tendon of lower back, initial encounter (principal); X58.XXXA Exposure to other specified factors, initial encounter; Y92.019 Unspecified place in single-family (private) house as the place of occurrence of the external cause; Y93.89 Activity, other specified; Y99.8 Other external cause status; Z79.899 Other long term (current) drug therapy
CPT/HCPCS: 36415; 80048; 80076; 83690; 85025; 96361; 96374; 96375; 99284; J1885; J3360

== ENCOUNTER 2016-04-12 20:32 | Inpatient (IN) | payer OTHER ==
[~2016-04-12] VITALS: Ht 198.1 cm; Wt 86.1 kg
[2016-04-12] MEDS ORDERED: KETOROLAC 30 MG/ML VIAL (J1885) As Ordered ONE (22:19)
[2016-04-12] MEDS ORDERED: ONDANSETRON 4MG/2ML VIAL (J2405) As Ordered ONE (22:19)
[2016-04-12 22:46] LABS: BASO % 0.3 % (0.0-1.0); EOS # 0.4 K/mm3 (0.0-0.50); EOS % 2.6 % (0.0-3.0); LARGE UNSTAINED CELL # 0.4 K/mm3 (0.0-0.4); LARGE UNSTAINED CELL % 2.7 % (0.0-4.0); LYMPH # 1.9 K/mm3 (1.5-4.5); LYMPH % 13.7 % (24.0-44.0); MEAN CORPUSCULAR HEMOGLOBIN 30.6 pg (27.0-33.0); MEAN CORPUSCULAR VOLUME 87.3 fl (80.0-96.0); MONO # 0.8 K/mm3 (0.0-0.8); MONO % 5.7 % (0.0-5.0); NEUTROPHILS # 10.4 K/mm3 (1.8-7.7); PLATELET COUNT, AUTOMATED 316 k/mm3 (150-450); WHITE BLOOD COUNT 13.9 K/mm3 (4.0-10.0)
[2016-04-12 23:00] LABS: ANION GAP 9 MEQ/L (8-16); BLOOD UREA NITROGEN 10 MG/DL (7-18); CALCIUM LEVEL 8.7 MG/DL (8.5-10.1); CARBON DIOXIDE LEVEL 27 MEQ/L (21-32); CHLORIDE LEVEL 99 MEQ/L (98-107); GLOMERULAR FILTRATION RATE > 60.0 (>60); GLUCOSE, FASTING 108 MG/DL (70-105); POTASSIUM SERUM 3.8 MEQ/L (3.5-5.1); SODIUM LEVEL 135 MEQ/L (136-145)
[2016-04-12] MEDS ORDERED: cefTRIAXone SOD 1 GM VIAL (J0696) As Ordered ONE (23:10)
[2016-04-12] MEDS ORDERED: METOCLOPRAMIDE INJ 10MG/2ML VIAL (J2765) As Ordered ONE (23:22)
[2016-04-12] MEDS ORDERED: MORPHINE 4 MG/ML 1ML SYRINGE As Ordered ONE (23:22)
[2016-04-12] MEDS ORDERED: ACETAMINOPHEN 325 MG TAB As Ordered ONE (23:22)
[2016-04-12] MEDS ORDERED: ISOVUE-370 76% 100ML VIAL (Q9967) As Ordered ONE (23:38)
--- NOTE | 2016-04-13 01:40 | REPUSA ---
CLINICAL HISTORY: Abdominal pain. TECHNIQUE: Multiple axial, sagittal and coronal CT images were obtained through the abdomen and pelvi s after administration of intravenous contrast material. COMMENTS: The liver is of uniform attenuation without mass or defect. There is no intra or extrahepatic biliary ductal dilatation. The spleen is normal. The gallbladder is within normal limits. The pancreas is of normal contour and attenuation characteristics. There is no evidence of adrenal mass. Heterogeneous nephrogram of the right kidney. 3.5 cm ill-defined hypodense lesion in the mid aspect o f the right kidney with associated perirenal fat stranding. Associated well defined hypodense areas w ithin the central aspect of the lesion with the largest measuring 1.5 cm. There is no evidence of renal or ureteral mass. No renal or ureteral calculi are identified. There is no hydroureter or hydronephrosis. No evidence for appendicitis. There is no bowel wall thickening. No evidence for small or large gabrielle l obstruction. There is no evidence of abdominal ascites or lymphadenopathy. Mild large bowel fecal s tasis. There is no evidence of intrinsic or extrinsic bladder mass. There is no pelvic ascites or lymphadeno flako. Prior appendectomy. Images of the lung bases show no evidence of pleural or parenchymal mass. There are no pleural effusi ons. The bony structures are free of lytic or blastic lesions. Multilevel degenerative changes are seen in volving the thoracolumbar spine. Scattered calcifications are seen involving the aorta and major bran ches compatible with atherosclerosis. IMPRESSION: Right pyelonephritis. Intrarenal multifocal phlegmon formation. Clinical evaluation and follow up are suggested. Prior appendectomy. Thank you for your kind referral of this patient.
[2016-04-13 02:20] LABS: INR 1.16
[2016-04-13] MEDS ORDERED: ONDANSETRON 4MG/2ML VIAL (J2405) IV PRN (02:30)
[2016-04-13] MEDS ORDERED: cefTRIAXone SOD 1 GM in D5W MINI-BAG PLUS 50 ML IV SCH (02:30)
[2016-04-13] MEDS ORDERED: LUNE1TAB5 PO (02:51)
[2016-04-13] MEDS ORDERED: TRAM50TA2 PO (02:51)
[2016-04-13] MEDS ORDERED: HYDR-3713 PO (02:51)
[2016-04-13] MEDS ORDERED: DIAZ5TAB PO (02:51)
[2016-04-13] MEDS ORDERED: PRED20TA PO (02:51)
--- NOTE | 2016-04-13 02:59 | EDDOCDS ---
Physician Documentation [facility] Name: Neal Deleon Age: 35 yrs Sex: Male : 1980 Arrival Date: 04/12/2016 Time: 20:32 Bed I5 / M5 Private MD: NDAries LITTLEJOHN Disposition: 04/13/16 02:13 Hospitalization ordered by Elina Christopher for Observation. 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 - Bed requested for M PED. - Status is Observation. af2 - Condition is Stable. - Problem is new. - Symptoms are unchanged. Historical: - Allergies: No known drug Allergies; - Home Meds: 1. prednisone 20 mg Oral tab 2 tabs once daily 2. tramadol 50 mg Oral TbDL 50 mg as needed 3. Zithromax 250 mg Oral tab 1 tab once daily 4. hydrocodone-acetaminophen 5-325 mg Oral tab 1 tab every 4-6 hours 5. muscle relaxer Unknown - PMHx: none; - PSHx: none; - Social history: Smoking status: Patient states former smoker of tobacco. No barriers to communication noted, The patient speaks fluent Macedonian. - Family history: Not pertinent. - : The pt / caregiver states he / she is not on anticoagulants. Home medication list is obtained from the patient. - Exposure Risk Screening:: None identified. Vital Signs: 04/12 20:34 BP 126 / 78; Pulse 109; Resp 18 S; Temp 100.2(O); Pulse Ox 97% on R/A; Weight 87.09 kg gr2 / 192 lbs (R); Height 78 in. (198.12 cm) (R); Pain 6/10; 23:17 BP 96 / 54; Pulse 75; Resp 18; Temp 100.0; Pulse Ox 95% ; Pain 9/10; ajs 23:23 BP 100 / 72 RA Supine (man/lg); ajs 04/13 00:10 BP 112 / 72 RA Supine (man/lg); ajs 01:58 BP 101 / 59; Pulse 59; Resp 18; Temp 96.8; Pulse Ox 98% ; ajs 02:57 BP 115 / 70; Pulse 59; Resp 18; Temp 96.2(O); Pulse Ox 96% on R/A; af2 01/08 20:34 Body Mass Index 22.19 (87.09 kg, 198.12 cm) gr2 MDM: 04/12 22:12 IV Saline Lock ordered. ar2 22:12 NS 0.9% 1000 ml IV at bolus once ordered. ar2 22:12 ketorolac 30 mg IVP once ordered. ar2 22:12 Ondansetron 4 mg IVP once ordered. ar2 22:13 CBC with Diff Ordered. EDMS 22:13 MED Profile Ordered. EDMS 22:13 UA Ordered. EDMS 22:13 Urine Culture Ordered. EDMS 22:13 -Influenza A&B Rapid Antigen - Nose Ordered. EDMS 22:14 Chest, 2 View (pa\E\lat) Ordered. EDMS 22:24 Financial registration complete. [facility] 22:24 [facility] Payment Agreement was scanned into [employer] and attached to record. gjb 23:06 CBC with Diff Reviewed. ar2 23:06 MED Profile Reviewed. ar2 23:06 UA Reviewed. ar2 23:06 -Influenza A&B Rapid Antigen - Nose Reviewed. ar2 23:08 cefTRIAXone 1 grams IVPB once over 30 mins; dilute in 50mL of NS or D5W ordered. ar2 23:10 CT ABD & PELVIS: IV Contrast Only Ordered. EDMS 23:15 morphine 4 mg IVP once ordered. ar2 23:15 Metoclopramide 10 mg IV at 40 mg/hr once over 15 mins ordered. ar2 23:15 Vital Signs ordered. ar2 23:15 Acetaminophen Tablet 975 mg PO once ordered. ar2 23:19 -Blood Culture (Adults Only), peripheral from different site, or from device/port/PICC ar2 etc. if present ordered. 23:20 Lactic Acid (Joe tube on ice) Ordered. EDMS 23:20 -Blood Culture Ordered. EDMS 23:22 BLOOD CULTURES Ordered. EDMS 23:31 -Blood Culture (Adults Only), peripheral from different site, or from device/port/PICC ajs etc. if present complete. 04/13 01:29 Lactic Acid (Joe tube on ice) Reviewed. cc10 01:59 CT ABD & PELVIS: IV Contrast Only Reviewed. cc10 02:08 NOTHING BY MOUTH+DIET ordered. EDMS 02:09 BED REQUEST+ADM ordered. EDMS 02:09 Pt & Aptt Ordered. EDMS 02:14 GC & Chlamydia Amplification Ordered. EDMS 02:26 SPUTUM CULTURE AND GRAM STAIN Ordered. EDMS 02:30 Admission / Observation Status ordered. EDMS 02:31 REGULAR DIET ordered. EDMS 02:31 COMPLETE BLOOD COUNT Ordered. EDMS 02:31 BASIC METABOLIC PROFILE Ordered. EDMS 02:31 HIV 1&2 ANTIBODY SCREEN Ordered. EDMS 02:31 HERPES SIMPLEX 1&2 IgM Ordered. EDMS 02:47 C REACTIVE PROTEIN QUANTITATIV Ordered. EDMS Administered Medications: 04/12 22:39 Drug: Ondansetron 4 mg Route: IVP; Site: left antecubital; [facility] 22:40 Drug: NS 0.9% 1000 ml [sodium chloride 0.9 % intravenous solution] Route: IV; Rate: bcj bolus; Site: left antecubital; 04/13 00:12 Follow up: IV Status: Completed infusion [facility] 04/12 22:40 Drug: ketorolac 30 mg [ketorolac 30 mg/mL (1 mL) injection solution (1 mL)] Route: IVP; [facility] Site: left antecubital; 22:58 Follow up: Response: Pain is decreased [facility] 23:30 Drug: Metoclopramide 10 mg [metoclopramide 5 mg/mL injection solution] Route: IV; Rate: bcj 40 mg/hr; Infused Over: 15 mins; Site: left antecubital; 23:57 Follow up: IV Status: Completed infusion [facility] 23:30 Drug: Acetaminophen 975 mg [acetaminophen 325 mg tablet (3 tabs)] Route: PO; j 23:41 Drug: cefTRIAXone 1 grams [ceftriaxone 1 gram solution for injection] Route: IVPB; bcj Infused Over: 30 mins; Site: left antecubital; 04/13 00:12 Follow up: IV Status: Completed infusion [facility] 00:12 Drug: morphine 4 mg [morphine 4 mg/mL intravenous cartridge (1 mL)] Route: IVP; Site: bc left antecubital; Signatures: Dispatcher [employer] Hang Cartagena RN RN Maddy Griffin, Sofa Back Upholsterer Unit ml3 Jimmy Andrade PA-C PA-C ar2 Lynn Hou Colin, PA-C PA-C cc10 Divya Palacios RN RN af2 Marija Bernal The chart was reviewed and I authenticate all verbal orders and agree with the evaluation and treatment provided.Corrections: (The following items were deleted from the chart) 02:41 02:31 Chlamydia & GC Amplification ordered. EDMS EDMS 02:47 02:39 C REACTIVE PROTEIN QUANTITATIV ordered. EDMS EDMS Attachments: 04/12 22:24 [facility] [place] lisa MTDD
--- NOTE | 2016-04-13 02:59 | EDDOCDS ---
Nurse's Notes [facility] Name: Neal Deleon Age: 35 yrs Sex: Male : 1980 Arrival Date: 04/12/2016 Time: 20:32 Bed I5 / M5 [facility] Diagnosis: Nonobstructive reflux-associated chronic pyelonephritis Presentation: 04/12 20:41 Presenting complaint: Patient states: sharp pain in right lower back, headache, pain af2 all over, rash in genital area, cough, fever. pt seen in ER 3 times past week for same. Acute neurological deficits are not present. Mechanism of Injury: No Mechanism of Injury. Adult Sepsis Screening: The patient does not have new or worsening altered mentation. Patient's respiratory rate is less than 22. Systolic blood pressure is greater than 100. Patient has a qSOFA score of 0- Negative Sepsis Screen. Suicide/Homicide risk assessment- the patient denies having any suicidal and/or homicidal ideations and does not present with any other emotional, behavioral or mental health complaints. 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 Transition of care: patient was not received from another setting of care. 20:41 Acuity: BI Level 4 af2 20:41 Method Of Arrival: Walkin/Carried/Asstd af2 Triage Assessment: 20:44 General: Appears in no apparent distress, Behavior is cooperative. Pain: Location: back af2 Pain currently is 8 out of 10 on a pain scale. HIV screening NA for this visit Offered previously. GI: Reports nausea, vomiting. Musculoskeletal: Reports pain in back. Historical: - Allergies: No known drug Allergies; - Home Meds: 1. prednisone 20 mg Oral tab 2 tabs once daily 2. tramadol 50 mg Oral TbDL 50 mg as needed 3. Zithromax 250 mg Oral tab 1 tab once daily 4. hydrocodone-acetaminophen 5-325 mg Oral tab 1 tab every 4-6 hours 5. muscle relaxer Unknown - PMHx: none; - PSHx: none; - Social history: Smoking status: Patient states former smoker of tobacco. No barriers to communication noted, The patient speaks fluent Georgian. - Family history: Not pertinent. - : The pt / caregiver states he / she is not on anticoagulants. Home medication list is obtained from the patient. - Exposure Risk Screening:: None identified. Screenin:58 Screening information is obtained from the patient. Fall risk: No risks identified. bcj Assistance ADL's: requires no assistance with activities of daily living. Abuse/DV Screen: The patient / caregiver reports he/she is: not in a situation that causes fear, pain or injury. Nutritional screening: No deficits noted. Advance Directives: Currently, there is no health care proxy. home support is adequate. Assessment: 21:47 General: Appears uncomfortable, Behavior is appropriate for age, cooperative. Pain: mb9 Location: low back area Pain currently is 8 out of 10 on a pain scale. Pain radiates to right leg. Neurological: Level of Consciousness is awake, alert, Oriented to person, place, time. Respiratory: Airway is patent Respiratory effort is even, unlabored. 22:58 General: Appears uncomfortable, Behavior is cooperative. Pain: Location: back Pain bcj currently is 6 out of 10 on a pain scale. Pain radiates to right leg. Derm: Skin is pink, warm & dry. 23:37 Adult Sepsis Screening: The patient does not have new or worsening altered mentation. bcj Patient's respiratory rate is less than 22. Systolic blood pressure is less than or equal to 100 (1 point). Patient has a qSOFA score of 1- Negative Sepsis Screen. General: Appears in no apparent distress, Behavior is cooperative. Pain: Location: back Pain currently is 6 out of 10 on a pain scale. Derm: Skin is pink, warm & dry. 04/13 01:22 General: assumed care of pt at this time. rr even and unlabored. pt lying on stretcher af2 resting quietly on stretcher. will continue to monitor.. 02:07 General: pt updated regarding plan of care at this time. rr even and unlabored. at af2 bedside. . 02:50 General: Appears in no apparent distress, Behavior is appropriate for age, cooperative, af2 pt resting quietly with eyes closed, arouses easily to name. remains at bedside. report called to marina connolly on peds, she has agreed to assume care of pt. . Neurological: Level of Consciousness is awake, alert. Respiratory: Airway is patent Respiratory effort is even, unlabored. Derm: Skin is pink, warm & dry. Vital Signs: 04/12 20:34 BP 126 / 78; Pulse 109; Resp 18 S; Temp 100.2(O); Pulse Ox 97% on R/A; Weight 87.09 kg gr2 (R); Height 78 in. (198.12 cm) (R); Pain 6/10; 23:17 BP 96 / 54; Pulse 75; Resp 18; Temp 100.0; Pulse Ox 95% ; Pain 9/10; ajs 23:23 BP 100 / 72 RA Supine (man/lg); ajs 04/13 00:10 BP 112 / 72 RA Supine (man/lg); ajs 01:58 BP 101 / 59; Pulse 59; Resp 18; Temp 96.8; Pulse Ox 98% ; ajs 02:57 BP 115 / 70; Pulse 59; Resp 18; Temp 96.2(O); Pulse Ox 96% on R/A; af2 04/12 20:34 Body Mass Index 22.19 (87.09 kg, 198.12 cm) gr2 Vitals: 04/12 20:34 Log In Time: April 12, 2016 at 20:34. gr2 ED Course: 20:33 Patient visited by Kuldeep Chowdhury. gr2 20:33 Patient moved to Waiting gr2 20:34 [facility], Aries Meyer is Private Physician. gr2 20:35 Patient visited by Kuldeep Chowdhury. gr2 20:35 Patient moved to Pre RCE gr2 20:43 Triage Initiated af2 20:44 Patient visited by Divya Palacios,MARINA. af2 21:05 Patient moved to Triage 3 cln 21:49 Jimmy Andrade [facility]-C [facility] ar2 21:49 Marcus Call DO is Attending Physician. ar2 21:56 Patient visited by Jimmy Andrade PA-C. ar2 22:13 Eloina Sosa, RN is Primary Nurse. mb9 22:13 Patient moved to I5 / M5 mb9 22:18 Urine Culture Sent. cln 22:18 UA Sent. cln 22:24 [facility] Payment Agreement was scanned into [employer] and attached to record. gjb 22:58 No apparent distress. Resting quietly. awaiting re-evaluation by ER physician. bcj 22:58 The patient / caregiver is instructed regarding the plan of care and ED course. Patient bcj has correct armband on for positive identification. Placed in gown. Bed in low position. Call light in reach. Side rails up X 1. Adult w/ patient. 22:58 Inserted saline lock: 20 gauge in left antecubital area. Labs drawn. (by ED staff). bcj Sent per order to lab. 23:00 Patient visited by Hang Campos RN. bcj 23:18 Patient visited by Lynn Hou. ajs 23:23 Patient visited by Lynn Hou. ajs 23:37 No apparent distress. Resting quietly. awaiting re-evaluation by ER physician. bcj 23:37 -Blood Culture Sent. ajs 23:37 Lactic Acid (Joe tube on ice) Sent. ajs 23:37 BLOOD CULTURES Sent. ajs 23:37 IV is intact. bcj 23:38 Patient visited by Hang Campos RN. bcj 04/13 00:10 Patient visited by Lynn Hou. ajs 00:42 Primary Nurse role handed off by Eloina Sosa RN kb5 00:48 PHCP role handed off by Jimmy Andrade PA-C cc10 00:48 Harley Peraza PA-C is PHCP. cc10 01:01 Patient visited by Divya Palacios RN. af2 01:23 Patient visited by Divya Palacios RN. af2 01:46 CT ABD & PELVIS: IV Contrast Only Returned. EDMS 01:58 Patient visited by Lynn Hou. ajs 02:07 Patient visited by Divya Palacios RN. af2 02:12 Elina Christopher is Hospitalizing Provider. cc10 02:52 No procedures done that require assistance. af2 02:53 Patient visited by Divya Palacios RN. af2 Administered Medications: 04/12 22:39 Drug: Ondansetron 4 mg Route: IVP; Site: left antecubital; bcj 22:40 Drug: NS 0.9% 1000 ml [sodium chloride 0.9 % intravenous solution] Route: IV; Rate: bcj bolus; Site: left antecubital; 04/13 00:12 Follow up: IV Status: Completed infusion bcj 04/12 22:40 Drug: ketorolac 30 mg [ketorolac 30 mg/mL (1 mL) injection solution (1 mL)] Route: IVP; bcj Site: left antecubital; 22:58 Follow up: Response: Pain is decreased bcj 23:30 Drug: Metoclopramide 10 mg [metoclopramide 5 mg/mL injection solution] Route: IV; Rate: bcj 40 mg/hr; Infused Over: 15 mins; Site: left antecubital; 23:57 Follow up: IV Status: Completed infusion bcj 23:30 Drug: Acetaminophen 975 mg [acetaminophen 325 mg tablet (3 tabs)] Route: PO; j 23:41 Drug: cefTRIAXone 1 grams [ceftriaxone 1 gram solution for injection] Route: IVPB; bcj Infused Over: 30 mins; Site: left antecubital; 04/13 00:12 Follow up: IV Status: Completed infusion j 00:12 Drug: morphine 4 mg [morphine 4 mg/mL intravenous cartridge (1 mL)] Route: IVP; Site: bcj left antecubital; Order Results: Lab Order: CBC with Diff; SPEC'M 04/12/16 22:30 Test: WHITE BLOOD COUNT; Value: 13.9; Range: 4.0-10.0; Abnormal: Above high normal; Units: K/mm3; Status: F Test: RED BLOOD COUNT; Value: 5.21; Range: 4.30-6.10; Units: M/mm3; Status: F Test: HEMOGLOBIN; Value: 15.9; Range: 14.0-18.0; Units: g/dl; Status: F Test: HEMATOCRIT; Value: 45.5; Range: 42.0-52.0; Units: %; Status: F Test: MEAN CORPUSCULAR VOLUME; Value: 87.3; Range: 80.0-96.0; Units: fl; Status: F Test: MEAN CORPUSCULAR HEMOGLOBIN; Value: 30.6; Range: 27.0-33.0; Units: pg; Status: F Test: MEAN CORPUSCULAR HGB CONC; Value: 35.0; Range: 32.0-36.5; Units: g/dl; Status: F Test: RED CELL DISTRIBUTION WIDTH; Value: 12.0; Range: 11.5-14.5; Units: %; Status: F Test: PLATELET COUNT, AUTOMATED; Value: 316; Range: 150-450; Units: k/mm3; Status: F Test: NEUTROPHILS %; Value: 75.0; Range: 36.0-66.0; Abnormal: Above high normal; Units: %; Status: F Test: LYMPH %; Value: 13.7; Range: 24.0-44.0; Abnormal: Below low normal; Units: %; Status: F Test: MONO %; Value: 5.7; Range: 0.0-5.0; Abnormal: Above high normal; Units: %; Status: F Test: EOS %; Value: 2.6; Range: 0.0-3.0; Units: %; Status: F Test: BASO %; Value: 0.3; Range: 0.0-1.0; Units: %; Status: F Test: LARGE UNSTAINED CELL %; Value: 2.7; Range: 0.0-4.0; Units: %; Status: F Test: NEUTROPHILS #; Value: 10.4; Range: 1.8-7.7; Abnormal: Above high normal; Units: K/mm3; Status: F Test: LYMPH #; Value: 1.9; Range: 1.5-4.5; Units: K/mm3; Status: F Test: MONO #; Value: 0.8; Range: 0.0-0.8; Units: K/mm3; Status: F Test: EOS #; Value: 0.4; Range: 0.0-0.50; Units: K/mm3; Status: F Test: BASO #; Value: 0.0; Range: 0.0-0.2; Units: K/mm3; Status: F Test: LARGE UNSTAINED CELL #; Value: 0.4; Range: 0.0-0.4; Units: K/mm3; Status: F Lab Order: MED Profile; SPEC'M 04/12/16 22:30 Test: GLUCOSE, FASTING; Value: 108; Range: 70-105; Abnormal: Above high normal; Units: MG/DL; Status: F Test: BLOOD UREA NITROGEN; Value: 10; Range: 7-18; Units: MG/DL; Status: F Test: CREATININE FOR GFR; Value: 0.90; Range: 0.70-1.30; Units: MG/DL; Status: F Test: GLOMERULAR FILTRATION RATE; Value: > 60.0; Range: >60; Status: F Test: SODIUM LEVEL; Value: 135; Range: 136-145; Abnormal: Below low normal; Units: MEQ/L; Status: F Test: POTASSIUM SERUM; Value: 3.8; Range: 3.5-5.1; Units: MEQ/L; Status: F Test: CHLORIDE LEVEL; Value: 99; Range: 98-107; Units: MEQ/L; Status: F Test: CARBON DIOXIDE LEVEL; Value: 27; Range: 21-32; Units: MEQ/L; Status: F Test: ANION GAP; Value: 9; Range: 8-16; Units: MEQ/L; Status: F Test: CALCIUM LEVEL; Value: 8.7; Range: 8.5-10.1; Units: MG/DL; Status: F Test Note: ; Units are mL/min/1.73 m2 Chronic Kidney Disease Staging per NKF: Stage I & II GFR >=60 Normal to Mildly Decreased Stage III GFR 30-59 Moderately Decreased Stage IV GFR 15-29 Severely Decreased Stage V GFR <15 Very Little GFR Left ESRD GFR <15 on SURGICAL NURSE PRACTITIONER Lab Order: UA; SPEC'M 04/12/16 22:15 Test: APPEARANCE, URINE; Value: CLEAR; Range: CLEAR; Status: F Test: COLOR, URINE; Value: YELLOW; Range: YELLOW; Status: F Test: PH,URINE; Value: 8.0; Range: 5.0-9.0; Units: UNITS; Status: F Test: SPECIFIC GRAVITY URINE AUTO; Value: 1.009; Range: 1.002-1.035; Status: F Test: PROTEIN, URINE AUTO; Value: NEGATIVE; Range: NEGATIVE; Units: mg/dL; Status: F Test: GLUCOSE, URINE (UA) AUTO; Value: NEGATIVE; Range: NEGATIVE; Units: mg/dL; Status: F Test: KETONE, URINE AUTO; Value: NEGATIVE; Range: NEGATIVE; Units: mg/dL; Status: F Test: UROBILINOGEN, URINE AUTO; Value: 2.0; Range: 0.0-2.0; Abnormal: Above high normal; Units: mg/dL; Status: F Test: BILIRUBIN, URINE AUTO; Value: NEGATIVE; Range: NEGATIVE; Status: F Test: NITRITE, URINE AUTO; Value: NEGATIVE; Range: NEGATIVE; Status: F Test: LEUKOCYTE ESTERASE, URINE AUTO; Value: 2+; Range: NEGATIVE; Abnormal: Above high normal; Status: F Test: BLOOD, URINE BLOOD; Value: NEGATIVE; Range: NEGATIVE; Status: F Test: WBC, URINE AUTO; Value: 43; Range: 0-3; Abnormal: Above high normal; Units: /HPF; Status: F Test: RBC, URINE AUTO; Value: 2; Range: 0-3; Units: /HPF; Status: F Test: BACTERIA, URINE AUTO; Value: 1+; Range: NEGATIVE; Abnormal: Above high normal; Status: F Test: SQUAMOUS EPITHELIAL CELL UR AU; Value: 0; Range: 0-6; Units: /HPF; Status: F Test: HYALINE CAST, URINE AUTO; Value: 0; Range: 0-1; Units: /LPF; Status: F Lab Order: -Influenza A&B Rapid Antigen - Nose; SPEC'M 04/12/16 22:30 Test: INFLUENZA A RAPID SCR by ICA; Value: INFLUENZA A RESULTS NEGATIVE; Status: F Test: INFLUENZA A RAPID SCR by ICA; Value: Comments:; Status: F Test: INFLUENZA B RAPID SCR by ICA; Value: INFLUENZA B RESULTS NEGATIVE; Status: F Test Note: ; The Influenza test is a direct rapid immunoassay for the qualitative detection of Influenza viral antigen. Cell culture (Viral Culture) testing should be considered to confirm NEGATIVE results and to assist in detecting other viruses that can provide similar clinical symptoms. Please contact the lab within 24 hours ([phone]) if confirmatory testing is desired. Lab Order: Lactic Acid (Joe tube on ice); SPEC'M 04/12/16 23:32 Test: LACTIC ACID LEVEL, LACTATE; Value: 0.6; Range: 0.4-2.0; Units: MMOL/L; Status: F Lab Order: Pt & Aptt; SPEC'M 04/12/16 22:30 Test: PROTHROMBIN TIME; Value: 14.9; Range: 12.3-14.5; Abnormal: Above high normal; Units: SECONDS; Status: F Test: INR; Value: 1.16; Status: F Test: PARTIAL THROMBOPLASTIN TIME; Value: 36.6; Range: 26.6-37.1; Units: SECONDS; Status: F Test Note: ; THERAPUTIC HUMAN INR VALUES INDICATIONS NORMAL RANGES PROPHYLAXIS/TREATMENT OF: VENOUS THROMBOSIS 2.0-3.0 PULMONARY EMBOLISM 2.0-3.0 PREVENTION OF SYSTEMIC EMBOLISM FROM: TISSUE HEART VALVES 2.0-3.0 ACUTE MYOCARDIAL INFARCTION 2.0-3.0 VALVULAR HEART DISEASE 2.0-3.0 ATRIAL FIBRILLATION 2.0-3.0 MECHANICAL VALVES(HIGH RISK) 2.5-3.5 RECURRENT MYOCARDIAL INFARCTION 2.5-3.5 Radiology Order: CT ABD & PELVIS: IV Contrast Only Test: CT ABD & PELVIS: IV Contrast Only REASON FOR EXAMINATION: right flank pain ? pyelonephritis; ; CLINICAL HISTORY: Abdominal pain.; TECHNIQUE: Multiple axial, sagittal and coronal CT images were obtained through the abdomen and pelvi; s after administration of intravenous contrast material.; COMMENTS:; The liver is of uniform attenuation without mass or defect. There is no intra or extrahepatic biliary; ductal dilatation. The spleen is normal. The gallbladder is within normal limits. The pancreas is of; normal contour and attenuation characteristics. There is no evidence of adrenal mass.; Heterogeneous nephrogram of the right kidney. 3.5 cm ill-defined hypodense lesion in the mid aspect o; f the right kidney with associated perirenal fat stranding. Associated well defined hypodense areas w; ithin the central aspect of the lesion with the largest measuring 1.5 cm.; There is no evidence of renal or ureteral mass. No renal or ureteral calculi are identified. There is; no hydroureter or hydronephrosis.; No evidence for appendicitis. There is no bowel wall thickening. No evidence for small or large gabrielle; l obstruction. There is no evidence of abdominal ascites or lymphadenopathy. Mild large bowel fecal s; tasis.; There is no evidence of intrinsic or extrinsic bladder mass. There is no pelvic ascites or lymphadeno; flako. Prior appendectomy.; Images of the lung bases show no evidence of pleural or parenchymal mass. There are no pleural effusi; ons.; The bony structures are free of lytic or blastic lesions. Multilevel degenerative changes are seen in; volving the thoracolumbar spine. Scattered calcifications are seen involving the aorta and major bran; ches compatible with atherosclerosis.; IMPRESSION:; Right pyelonephritis.; Intrarenal multifocal phlegmon formation.; Clinical evaluation and follow up are suggested.; Prior appendectomy.; Thank you for your kind referral of this patient.; ; Outcome: 02:13 Decision to Hospitalize by Provider. cc10 02:52 Discharge Assessment: Patient awake, alert and oriented x 3. No cognitive and/or af2 functional deficits noted. Patient verbalized understanding of disposition instructions. patient administered narcotics - yes. Patient was admitted to the hospital or transferred to another facility. The following High Risk Discharge criteria are identified: None. Admitted to Pediatrics accompanied by tech, family with patient, via stretcher, with chart. Condition: stable. CT Study completed. Property :Personal belongings accompany Pt. 02:58 Patient left the ED. af2 Signatures: Dispatcher [employer] EDMS Hang Campos, RN RN Shay Torres, PROCESSING ASSOCIATE PROCESSING ASSOCIATE kb5 Jimmy Andrade, PA-C PA-C ar2 Lynn Hou Gainslee gr2 Harley Peraza, PAVictor Manuel PA-C cc10 Catrachito Dominguez,RN RN mb9 Divya Palacios RN RN af2 Marija Bernal Crystal, PROCESSING ASSOCIATE PROCESSING ASSOCIATE cln [facility]
[2016-04-13 03:00] VITALS: BP 110/73
--- NOTE | 2016-04-13 03:18 | HPE ---
DATE OF ADMISSION: 04/13/2016 PRIMARY CARE PROVIDER: Aries Meyer [facility] ([facility]). HISTORY OF PRESENT ILLNESS: This patient is a 35-year-old male with no significant past medical history, presented to [facility] on 04/12/2016, for persistent right flank pain. Patient stated he has been having the right flank pain for the past 6 weeks and he has been in and out of the hospital, mainly in the [facility] in [place]. He did not get any diagnosis; he had three [facility] Emergency Department (ED) visits over the past week. Patient stated the pain is sharp, originated in the right flank area, worsened with palpation and the pain will radiate to the posterior right buttock into the leg. Other associated symptoms include fever, chills, and headache. He also noted to have a productive cough with brownish sputum. Those never happened before. Patient also noted to have a tingling bilaterally radiating down from the elbow to the fingertips. The right flank pain has been persistent in intensity for the past 6 weeks. Patient also noted to have vesicular blister located within his pubic area. It started showing up 2 days ago and he never had it before. Patient denies multiple partners. Denied any history of sexually transmitted disease (STD). When patient arrived in the emergency room, patient had a normal blood pressure with a pulse of 109, temperature 100.2. Patient received 1 liter of normal saline bolus and patient was started on intravenous (IV) Rocephin and IV morphine due to a diagnosis of pyelonephritis from CT and physical exam. The hospitalist team was called for admission. ALLERGIES: No known drug allergies. HOME MEDICATIONS: None. Previously, patient had been in and out of the emergency room in different hospital. Patient was given a short course of medications such as pain control and prednisone and azithromycin. PAST MEDICAL HISTORY: None. PAST SURGICAL HISTORY: None. SOCIAL HISTORY: Patient used to smoke 15 years ago. Drinks mixed drinks twice a month. Denies any recreational drug use. Patient denies recent sick contact. Patient has a girlfriend. REVIEW OF SYSTEMS: GENERAL: Positive fever, chills. HEENT: Positive headaches intermittently for the past 6 weeks. No vision changes. No auditory changes. CARDIOVASCULAR: No chest pain. No palpitations. RESPIRATORY: Positive for productive cough with yellowish sputum. No wheezes. GASTROINTESTINAL: No nausea. No vomiting. No abdominal pain. No diarrhea. GENITOURINARY: Positive right flank pain radiating to the posterior buttock. MUSCULOSKELETAL: No joint swelling or pain. NEUROLOGICAL: Numbness from the bilateral elbows radiating to the hand fingertips. OBJECTIVE: VITAL SIGNS: Blood pressure is 101/59, pulse 59, respirations 18, temperature 96.8, pulse oximetry is 98% in room air. Body weight is 87 kg. Body height is 198 cm. GENERAL: Fatigued, mild to moderate distress, oriented times three. Patient has excessive sweating that soaked through the whole bed sheet. HEENT: Normocephalic, atraumatic. Extraocular motor grossly intact. CARDIOVASCULAR: Positive S1, S2, regular rate. LUNGS: Clear to auscultation bilaterally. ABDOMEN: Soft, nontender, nondistended, bowel sounds present. No rebound. No guarding. MUSCULOSKELETAL: Positive right-sided costovertebral angle (CVA) tenderness. During the percussion, will elicit sharp pain radiating down to the right buttock area and the right lower posterior thigh. No lower extremity edema. No sign of cyanosis. DERMATOLOGICAL: Positive ruptured blister located in the suprapubic area with erythema base. No purulent discharge noted. No vesicular lesion found on the penis. NEUROLOGICAL: Sensation to fine touch grossly intact. Muscle strength 5/5. Microbiology: Blood cultures pending. Urine culture pending. Influenza is negative. IMAGING STUDIES: CT of the abdomen and the pelvis with contrast shows right-sided pyelonephritis. Intrarenal multifocal phlegmon formation. ASSESSMENT AND PLAN: 1. Pyelonephritis. Patient will be admitted to medical/surgical floor under inpatient status. Will followup with urine cultures. Patient will continue on intravenous (IV) fluid. Patient was empirically started on Rocephin. Will follow with GC/chlamydia and HIV. 2. Vesicular blister near the private area. Will follow with herpes lab studies. 3. Deep venous thrombosis (DVT) prophylaxis. Patient is a young patient who does not have an increased risk of DVT. No anticoagulation is indicated at this moment.
[2016-04-13] MEDS: PERCOCET 5MG/325MG TAB PO PRN ×4 (03:22→18:03)
[2016-04-13] MEDS: NS 1,000 ML IV SCH ×4 (03:23→23:45)
[2016-04-13 06:56] LABS: MEAN CORPUSCULAR HEMOGLOBIN 30.7 pg (27.0-33.0); MEAN CORPUSCULAR HGB CONC 34.8 g/dl (32.0-36.5); MEAN CORPUSCULAR VOLUME 88.3 fl (80.0-96.0); RED CELL DISTRIBUTION WIDTH 12.1 % (11.5-14.5); WHITE BLOOD COUNT 10.1 K/mm3 (4.0-10.0)
[2016-04-13 07:16] LABS: ANION GAP 7 MEQ/L (8-16); BLOOD UREA NITROGEN 12 MG/DL (7-18); CALCIUM LEVEL 8.3 MG/DL (8.5-10.1); CARBON DIOXIDE LEVEL 29 MEQ/L (21-32); CHLORIDE LEVEL 103 MEQ/L (98-107); CREATININE FOR GFR 0.91 MG/DL (0.70-1.30); GLOMERULAR FILTRATION RATE > 60.0 (>60); GLUCOSE, FASTING 90 MG/DL (70-105); SODIUM LEVEL 139 MEQ/L (136-145)
[2016-04-13 08:09] VITALS: BP 111/67
--- NOTE | 2016-04-13 08:40 | REP ---
Clinical: Cough and fever . Comparison: None Technique: PA and lateral. Findings: The mediastinum and cardiac silhouette are normal. The lung chi are clear and without acute consolidation, effusion, or pneumothorax. The skeletal structures are intact and normal. Impression: 1. No acute cardiopulmonary process. Signed by Dario Redman MD 04/13/2016 08:32 A
[2016-04-13 08:59] LABS: CONTROL LINE INT CTR LINE PRESENT; HIV SCRN NEGATIVE (NEGATIVE); HIV SCRN1 NEGATIVE (NEGATIVE)
[2016-04-13 12:26] VITALS: BP 123/77
[2016-04-13] MEDS: cefTRIAXone SOD 2 GM in D5W MINI-BAG PLUS 50 ML IV SCH (13:42)
[2016-04-13] MEDS: BENZONATATE 100 MG CAP PO PRN (14:30)
--- NOTE | 2016-04-13 14:45 | IPNPDOC ---
Date of Service/Time Apr 12, 2016 at 20:32 Progress Note Hospitalist Progress Note Subjective: Mr. Deleon does continue to have persistent right flank pain at this time, however he is not complaining much during our interview. He reports that he feels as though this all may have began approximately 6 weeks ago when he got a tattoo around Thanksgiving on his left shoulder, and he subsequently developed a boil which he ignored. The boil began to grow and get worse, therefore he lanced it himself and with the help of his fiance was trying to express the purulent material. He believes that this drove infection even deeper because of secondary boil appeared shortly thereafter a few inches superiorly from the original one, and ever since this time he has been feeling sickly. After that he developed his flank pain which has brought him to the emergency department multiple times, he has also developed a terrible persistent nonproductive cough for which she was given the diagnosis of bronchitis in one of the urgent care visits, and this is why he has prednisone on his home med list. He is feeling approximately the same this morning as he did not last night. Objective: General: Awake, alert, reclined in a hospital bed. He does appear to be in mild discomfort at this time. HEENT: Head normocephalic, atraumatic, sclera are nonicteric. Hearing is grossly intact to conversation. Respiratory: Clear to auscultation bilaterally with no wheezes, rales, or rhonchi. Cardiovascular: Regular rate and rhythm, with no rubs, gallops, or murmur. Abdomen: Soft, nontender, nondistended, no hepatosplenomegaly appreciated. Bowel sounds present. He is tender to palpation in the right flank Extremities: 2+ pulses in the radial and dorsalis pedis bilaterally. No evidence of clubbing or cyanosis. Assessment/Plan: 1. Renal abscess versus phlegmon and right kidney. Urology has been consulted. It is unlikely that he has had a renal abscess for the past 6 weeks, therefore I have suspicion that this may be a septic emboli from endocarditis, therefore an EKG and echocardiogram has been ordered. Blood cultures are still pending, urine culture is pending as well. We'll continue with the empiric antibiotic of Rocephin. 2. Cough. This is been largely nonproductive, however he was able to generate some whitish sputum which has been sent for sputum culture. He has been treated outpatient with antibiotics whose name he cannot remember, and prednisone 3. Genital ulcer. Herpes serology is still pending. Chlamydia, gonorrhea, and HIV are all negative. 4. DVT prophylaxis. Patient is at low risk for DVT, ambulation is encouraged. I have discussed this case with Dr. Haines who suggests follow up CT in one month. I have discussed the case with the patient's mother by phone at his request. He has developed increasing cough, and flank pain later in the evening. Further tests have been ordered, fluid and pain medicine given. I have both independently examined this patient as well as reviewed documentation. I have discussed the findings in detail with the author the findings and plan of treatment as documented in the note. I will continue to follow the patient and offer further guidance to the patients care as necessary. [place] VS, I&O, 24H, Fishbone VS, I&O, 24H, Fishbone Vital Signs Date Time Temp Pulse Resp B/P Pulse Ox O2 Delivery O2 Flow Rate FiO2 04/13/16 13:34 18 04/13/16 12:26 98.0 78 123/77 100 Room Air I&O- Last 24 Hours up to 6 AM 04/13/16 06:00 Intake Total 120 ml Output Total 550 ml Balance -430 ml Laboratory Tests 2 04/12/16 22:15: Urine Amorphous Sediment , Urine Appearance CLEAR, Urine Color YELLOW, Urine pH 8.0, Urine Specific [place] 1.009, Urine Protein NEGATIVE, Urine Glucose (UA) NEGATIVE, Urine Ketones NEGATIVE, Urine Urobilinogen 2.0H, Urine Bilirubin NEGATIVE, Urine Leukocyte Esterase 2+H, Urine Bacteria (Auto) 1+H, Urine Blood NEGATIVE, Urine Calcium Carbonate Cryst(Auto) , Urine Calcium Oxalate Cryst ( Auto) , Urine Calcium Phosphate [place] (Auto) , Urine Cellular Casts , Urine Cystine Crystals , Urine Granular Casts (Auto) , Urine Hyaline Casts (Auto) 0, Urine Leucine Crystals , Urine Mucus (Auto) , Urine Nitrite NEGATIVE, Urine Oval Fat Bodies (Auto) , Urine RBC (Auto) 2, Urine Renal Epithelial Cells , Urine Sperm (Auto) , Urine Squamous Epithelial Cells 0, Urine Transitional Epithelial Cells , Urine Trichomonas (Auto) , Urine Triple Phosphate Cryst (Auto ) , Urine Tyrosine Crystals , Urine Uric Acid Crystals (Auto) , Urine WBC (Auto ) 43H, Urine Waxy Casts (Auto) , Urine Yeast-Like Cells (Auto) 04/12/16 22:30: Activated Partial Thromboplast Time 36.6, Anion Gap 9, White Blood Count 13.9H, Red Blood Count 5.21, Hemoglobin 15.9, Hematocrit 45.5, Mean Corpuscular Volume 87.3, Mean Corpuscular Hemoglobin 30.6, Mean Corpuscular Hemoglobin Concent 35.0 , Red Cell Distribution Width 12.0, Platelet Count 316, Neutrophils (%) (Auto) 75.0H, Lymphocytes (%) (Auto) 13.7L, Monocytes (%) (Auto) 5.7H, Eosinophils (%) (Auto) 2.6, Basophils (%) (Auto) 0.3, Neutrophils # (Auto) 10.4H, Lymphocytes # (Auto) 1.9, Monocytes # (Auto) 0.8, Eosinophils # (Auto) 0.4, Basophils # (Auto ) 0.0, Blood Urea Nitrogen 10, Creatinine 0.90, Sodium Level 135L, Potassium Level 3.8, Chloride Level 99, Carbon Dioxide Level 27, Calcium Level 8.7, Glomerular Filtration Rate > 60.0, Large Unclassified Cells # 0.4, Large Unclassified Cells % 2.7, Prothromb Time International Ratio 1.16, Prothrombin Time 14.9H 04/12/16 23:32: Lactic Acid Level 0.6 04/13/16 03:35: Chlamydia trachomatis DNA (MARILEE) NEGATIVE, Neisseria gonorrhoeae DNA (MARILEE) NEGATIVE 04/13/16 06:31: Anion Gap 7L, C-Reactive Protein, Quantitative 10.60H, Blood Urea Nitrogen 12, Creatinine 0.91, Sodium Level 139, Potassium Level 4.0, Chloride Level 103, Carbon Dioxide Level 29, Calcium Level 8.3L, Glomerular Filtration Rate > 60.0 Laboratory Tests 04/12/16 22:30 Calcium Level 8.7, Red Blood Count 5.21, Mean Corpuscular Volume 87.3, Mean Corpuscular Hemoglobin 30.6, Mean Corpuscular Hemoglobin Concent 35.0, Red Cell Distribution Width 12.0, Neutrophils (%) (Auto) 75.0 H, Lymphocytes (%) (Auto) 13.7 L, Monocytes (%) (Auto) 5.7 H, Eosinophils (%) (Auto) 2.6, Basophils (%) ( Auto) 0.3, Neutrophils # (Auto) 10.4 H, Lymphocytes # (Auto) 1.9, Monocytes # ( Auto) 0.8, Eosinophils # (Auto) 0.4, Basophils # (Auto) 0.0 04/13/16 06:31 Calcium Level 8.3 L, Red Blood Count 4.65, Mean Corpuscular Volume 88.3, Mean Corpuscular Hemoglobin 30.7, Mean Corpuscular Hemoglobin Concent 34.8, Red Cell Distribution Width 12.1 Microbiology 04/12/16 Blood Culture, Received Pending 04/12/16 Blood Culture, Received Pending 04/13/16 Gram Stain - Final, Resulted 04/13/16 Sputum Culture, Resulted Pending 04/12/16 Influenza Virus Type A Antigen - Final, Complete 04/12/16 Influenza Virus Type B Antigen - Final, Complete 04/12/16 Urine Culture, Received Pending ALENA CONCEPCION DO Apr 13, 2016 14:45 STEVEN FUNES MD Apr 13, 2016 20:45
--- NOTE | 2016-04-13 14:59 | ECHO ---
DATE OF PROCEDURE: 04/13/2016 REFERRING PHYSICIAN: Dr. Neal Gutierrez INDICATION: Acute infective endocarditis. HEIGHT 198 cm. WEIGHT: 87.1 kg. MEASUREMENTS: Ventricular septum - 0.87 cm Posterior wall 1.01 - cm Left ventricle diastole - 5.4 cm Left atrium - 3.5 cm LVOT - 2.1 cm Aortic root - 3.1 cm Inferior vena cava - 2.1 cm (greater than 50% respiratory variation) DOPPLER MEASUREMENTS: Aortic valve velocity - 120 cm/s LVOT velocity - 80.5 cm/s Mitral E velocity - 62.2 cm/s, Mitral A velocity - 60.7 cm/s Mitral E deceleration time 236 ms. Trace tricuspid regurgitation. Pulmonary artery systolic pressure 41 mmHg by pulmonary acceleration time method. MITRAL ANNULAR TISSUE DOPPLER: E prime septal - 7.5 cm/s DESCRIPTION: The rhythm was sinus. The image quality was fair. This is a 2D, M-mode, color flow Doppler and pulsed wave Doppler examination to include mitral annular tissue Doppler. CONCLUSIONS: 1. No vegetations identified on any of the cardiac valves. Please keep in mind that transesophageal echocardiogram (DOROTHY) is more sensitive for detection of endocarditis than trans thoracic echocardiography. 2. Normal LV size and systolic function. Normal LV wall thickness. LVEF of 60% by visual estimate. Normal right ventricle size and systolic function. 3. Suggestive of moderate elevation of pulmonary artery systolic pressure. 4. No pericardial effusion. 5. Normal LV diastolic function.
[2016-04-13 16:00] VITALS: BP 110/70
[2016-04-13 18:19] VITALS: BP 135/74
[2016-04-13] MEDS ORDERED: SODIUM CHLORIDE 0.9% 1000 ML IV ONE ×2 (18:45→20:45)
[2016-04-13] MEDS: KETOROLAC 30 MG/ML VIAL (J1885) IV PRN (18:59)
[2016-04-13 19:37] LABS: BASO % 0.4 % (0.0-1.0); EOS # 0.7 K/mm3 (0.0-0.50); EOS % 6.6 % (0.0-3.0); LARGE UNSTAINED CELL # 0.2 K/mm3 (0.0-0.4); LARGE UNSTAINED CELL % 2.2 % (0.0-4.0); LYMPH # 1.4 K/mm3 (1.5-4.5); LYMPH % 13.2 % (24.0-44.0); MEAN CORPUSCULAR HEMOGLOBIN 30.1 pg (27.0-33.0); MEAN CORPUSCULAR VOLUME 88.6 fl (80.0-96.0); MONO # 0.5 K/mm3 (0.0-0.8); MONO % 4.8 % (0.0-5.0); NEUTROPHILS # 7.6 K/mm3 (1.8-7.7); NEUTROPHILS % 72.7 % (36.0-66.0); PLATELET COUNT, AUTOMATED 285 k/mm3 (150-450); WHITE BLOOD COUNT 10.5 K/mm3 (4.0-10.0)
--- NOTE | 2016-04-13 19:51 | REP ---
Clinical: Fever. Comparison: 04/16/2014. Findings: There is a 10 mm noncalcified nodule in the apical segment left lower lobe (image 38) which represents a new finding compared to prior examination. The remainder of lung chi are clear and without further consolidation, nodule or mass lesion. Pleural effusion/reaction or pneumothorax. Tracheobronchial tree is patent. No obvious adenopathy. Mediastinum demonstrates normal heart/pericardium and vasculature. Surrounding musculoskeletal structures are intact. Impression: 10 mm noncalcified nodule in the apical segment left lower lobe requires 3-month follow-up. Signed by Dario Redman MD 04/13/2016 07:43 P
--- NOTE | 2016-04-13 19:57 | REP ---
Clinical: Fever. Comparison: Contrast enhanced CT dated 04/13/2016 at 12:18 a.m.. Findings: Moderate right perinephric stranding and edematous enlargement to the right kidney along with complex 4 cm hypodense lesion is again noted in the right kidney consistent with pyelonephritis given the patient's flank pain and fever. Less likely differential diagnosis includes renal mass lesion. Left kidney demonstrates nonobstructing 3 mm nephrolith. Liver, spleen, pancreas, gallbladder, and bilateral adrenal glands are normal for noncontrast evaluation. The enteric system is unremarkable and without obstruction or acute inflammatory process. Pelvis demonstrates normal bladder and age appropriate prostate/seminal vesicles. Evidence for prior appendectomy. No pelvic fluid or ascites. Subcentimeter retroperitoneal lymph nodes may be reactive. Musculoskeletal structures are intact. Impression: Incoordination with prior contrast enhanced examination, there is mildly increased right perinephric stranding which may reflect the suspected acute pyelonephritis. The right complex hypodense renal lesion is poorly evaluated by the lack of contrast. Concordant chest CT demonstrates a 10 mm nodular density in the left lower lobe. Differential diagnosis must include a renal cell carcinoma and solitary metastatic focus. Signed by Dario Redman MD 04/13/2016 07:49 P
[2016-04-13 20:00] VITALS: BP 135/77
[2016-04-13 20:00] LABS: ALBUMIN 2.7 GM/DL (3.2-5.2); ALBUMIN/GLOBULIN RATIO 0.75 (1.00-1.93); ALKALINE PHOSPHATASE 90 U/L (45-117); ALT/SGPT 51 U/L (12-78); ANION GAP 11 MEQ/L (8-16); AST/SGOT 24 U/L (15-37); BILIRUBIN,TOTAL 0.5 MG/DL (0.2-1.0); BLOOD UREA NITROGEN 8 MG/DL (7-18); CALCIUM LEVEL 8.1 MG/DL (8.5-10.1); CARBON DIOXIDE LEVEL 25 MEQ/L (21-32); CHLORIDE LEVEL 102 MEQ/L (98-107); CREATININE FOR GFR 0.89 MG/DL (0.70-1.30); GLOMERULAR FILTRATION RATE > 60.0 (>60); GLUCOSE, FASTING 116 MG/DL (70-105); POTASSIUM SERUM 4.1 MEQ/L (3.5-5.1); SODIUM LEVEL 138 MEQ/L (136-145); TOTAL PROTEIN 6.3 GM/DL (6.4-8.2)
[2016-04-14] VITALS: BP 124/68
[2016-04-14] MEDS: cefTRIAXone SOD 2 GM in D5W MINI-BAG PLUS 50 ML IV SCH ×2 (02:38→13:34)
[2016-04-14] MEDS: ACETAMINOPHEN TAB 650MG DOSE (2X325MG) PO PRN ×2 (02:45→13:26)
[2016-04-14] MEDS: BENZONATATE 100 MG CAP PO PRN ×3 (02:45→20:53)
[2016-04-14 04:00] VITALS: BP 99/58
[2016-04-14] MEDS: KETOROLAC 30 MG/ML VIAL (J1885) IV PRN ×2 (05:19→13:26)
[2016-04-14] MEDS: NS 1,000 ML IV SCH ×4 (05:19→20:52)
[2016-04-14 07:23] LABS: MEAN CORPUSCULAR HEMOGLOBIN 31.1 pg (27.0-33.0); MEAN CORPUSCULAR HGB CONC 34.8 g/dl (32.0-36.5); MEAN CORPUSCULAR VOLUME 89.6 fl (80.0-96.0); RED CELL DISTRIBUTION WIDTH 12.1 % (11.5-14.5)
[2016-04-14 07:51] LABS: ANION GAP 9 MEQ/L (8-16); BLOOD UREA NITROGEN 6 MG/DL (7-18); CARBON DIOXIDE LEVEL 27 MEQ/L (21-32); CHLORIDE LEVEL 108 MEQ/L (98-107); CREATININE FOR GFR 0.82 MG/DL (0.70-1.30); GLOMERULAR FILTRATION RATE > 60.0 (>60); GLUCOSE, FASTING 95 MG/DL (70-105); POTASSIUM SERUM 4.4 MEQ/L (3.5-5.1); SODIUM LEVEL 144 MEQ/L (136-145)
[2016-04-14 08:00] VITALS: BP 128/72
[2016-04-14] MEDS: PERCOCET 5MG/325MG TAB PO PRN ×3 (09:22→20:52)
--- NOTE | 2016-04-14 09:28 | ECGEPIP ---
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
[2016-04-14 12:00] VITALS: BP 138/74
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
[2016-04-14 16:00] VITALS: BP 120/77
--- NOTE | 2016-04-14 17:30 | REP ---
Scrotal sonography: History: Renal mass, suspicion of metastatic disease from testis. Comparison CT study is from previous day. Sonographic findings: High-resolution bilateral scrotal sonography shows homogeneous testes. No intratesticular mass lesion is seen. Testicular Doppler flow is normal. There are a few scattered testicular microcalcifications. There is a small right-sided hydrocele. A small left-sided varicocele is seen. Epididymi show a small cysts bilaterally. The largest of these is on the left measuring 2.8 mm. There is 2.0 mm cyst on the right. Right testicular dimensions are 4.7 x 2.6 x 3.2 cm. Left testis measures 4.2 x 2.4 x 3.2 cm. Doppler flow is normal to both testes with resistive indices measured at 0.56 and 0.57 on the right and left respectively. Impression: No evidence of intratesticular mass lesion. Small left-sided varicocele and small right-sided hydrocele. No other significant finding. Signed by Emilio Mckay MD 04/15/2016 08:00 A
[2016-04-14 20:00] VITALS: BP 128/86
[2016-04-14] MEDS: MORPHINE 2 MG/ML 1ML SYRINGE IV PRN (22:23)
[2016-04-15] MEDS: BENZONATATE 100 MG CAP PO PRN ×3 (02:14→23:37)
[2016-04-15] MEDS: cefTRIAXone SOD 2 GM in D5W MINI-BAG PLUS 50 ML IV SCH ×2 (02:20→14:25)
[2016-04-15] MEDS: PERCOCET 5MG/325MG TAB PO PRN ×4 (02:20→23:37)
[2016-04-15] MEDS: NS 1,000 ML IV SCH ×4 (02:21→20:30)
--- NOTE | 2016-04-15 03:59 | EDDOCDS ---
Physician Documentation [facility] Name: Neal Deleon Age: 35 yrs Sex: Male : 1980 Arrival Date: 04/12/2016 Time: 20:32 Bed I5 / M5 Private MD: IDAries LITTLEJOHN Disposition: 04/13/16 02:13 Hospitalization ordered by Elina Christopher for Observation. 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 - Bed requested for M PED. - Status is Observation. af2 - Condition is Stable. - Problem is new. - Symptoms are unchanged. Historical: - Allergies: No known drug Allergies; - Home Meds: 1. prednisone 20 mg Oral tab 2 tabs once daily 2. tramadol 50 mg Oral TbDL 50 mg as needed 3. Zithromax 250 mg Oral tab 1 tab once daily 4. hydrocodone-acetaminophen 5-325 mg Oral tab 1 tab every 4-6 hours 5. muscle relaxer Unknown - PMHx: none; - PSHx: none; - Social history: Smoking status: Patient states former smoker of tobacco. No barriers to communication noted, The patient speaks fluent Italian. - Family history: Not pertinent. - : The pt / caregiver states he / she is not on anticoagulants. Home medication list is obtained from the patient. - Exposure Risk Screening:: None identified. Vital Signs: 04/12 20:34 BP 126 / 78; Pulse 109; Resp 18 S; Temp 100.2(O); Pulse Ox 97% on R/A; Weight 87.09 kg gr2 / 192 lbs (R); Height 78 in. (198.12 cm) (R); Pain 6/10; 23:17 BP 96 / 54; Pulse 75; Resp 18; Temp 100.0; Pulse Ox 95% ; Pain 9/10; ajs 23:23 BP 100 / 72 RA Supine (man/lg); ajs 04/13 00:10 BP 112 / 72 RA Supine (man/lg); ajs 01:58 BP 101 / 59; Pulse 59; Resp 18; Temp 96.8; Pulse Ox 98% ; ajs 02:57 BP 115 / 70; Pulse 59; Resp 18; Temp 96.2(O); Pulse Ox 96% on R/A; af2 01/08 20:34 Body Mass Index 22.19 (87.09 kg, 198.12 cm) gr2 MDM: 04/12 22:12 IV Saline Lock ordered. ar2 22:12 NS 0.9% 1000 ml IV at bolus once ordered. ar2 22:12 ketorolac 30 mg IVP once ordered. ar2 22:12 Ondansetron 4 mg IVP once ordered. ar2 22:13 CBC with Diff Ordered. EDMS 22:13 MED Profile Ordered. EDMS 22:13 UA Ordered. EDMS 22:13 Urine Culture Ordered. EDMS 22:13 -Influenza A&B Rapid Antigen - Nose Ordered. EDMS 22:14 Chest, 2 View (pa\E\lat) Ordered. EDMS 22:[address] [facility] 22:24 [facility] Payment Agreement was scanned into [employer] and attached to record. gjb 23:06 CBC with Diff Reviewed. ar2 23:06 MED Profile Reviewed. ar2 23:06 UA Reviewed. ar2 23:06 -Influenza A&B Rapid Antigen - Nose Reviewed. ar2 23:08 cefTRIAXone 1 grams IVPB once over 30 mins; dilute in 50mL of NS or D5W ordered. ar2 23:10 CT ABD & PELVIS: IV Contrast Only Ordered. EDMS 23:15 morphine 4 mg IVP once ordered. ar2 23:15 Metoclopramide 10 mg IV at 40 mg/hr once over 15 mins ordered. ar2 23:15 Vital Signs ordered. ar2 23:15 Acetaminophen Tablet 975 mg PO once ordered. ar2 23:19 -Blood Culture (Adults Only), peripheral from different site, or from device/port/PICC ar2 etc. if present ordered. 23:20 Lactic Acid (Joe tube on ice) Ordered. EDMS 23:20 -Blood Culture Ordered. EDMS 23:22 BLOOD CULTURES Ordered. EDMS 23:31 -Blood Culture (Adults Only), peripheral from different site, or from device/port/PICC ajs etc. if present complete. 04/13 01:29 Lactic Acid (Joe tube on ice) Reviewed. cc10 01:59 CT ABD & PELVIS: IV Contrast Only Reviewed. cc10 02:08 NOTHING BY MOUTH+DIET ordered. EDMS 02:09 BED REQUEST+ADM ordered. EDMS 02:09 Pt & Aptt Ordered. EDMS 02:14 GC & Chlamydia Amplification Ordered. EDMS 02:26 SPUTUM CULTURE AND GRAM STAIN Ordered. EDMS 02:30 Admission / Observation Status ordered. EDMS 02:31 REGULAR DIET ordered. EDMS 02:31 COMPLETE BLOOD COUNT Ordered. EDMS 02:31 BASIC METABOLIC PROFILE Ordered. EDMS 02:31 HIV 1&2 ANTIBODY SCREEN Ordered. EDMS 02:31 HERPES SIMPLEX 1&2 IgM Ordered. EDMS 02:47 C REACTIVE PROTEIN QUANTITATIV Ordered. EDMS 10:24 T-Sheet-- Draft Copy was scanned into [employer] and attached to record. gb Administered Medications: 04/12 22:39 Drug: Ondansetron 4 mg Route: IVP; Site: left antecubital; [facility] 22:40 Drug: NS 0.9% 1000 ml [sodium chloride 0.9 % intravenous solution] Route: IV; Rate: bcj bolus; Site: left antecubital; 04/13 00:12 Follow up: IV Status: Completed infusion [facility] 04/12 22:40 Drug: ketorolac 30 mg [ketorolac 30 mg/mL (1 mL) injection solution (1 mL)] Route: IVP; [facility] Site: left antecubital; 22:58 Follow up: Response: Pain is decreased [facility] 23:30 Drug: Metoclopramide 10 mg [metoclopramide 5 mg/mL injection solution] Route: IV; Rate: bcj 40 mg/hr; Infused Over: 15 mins; Site: left antecubital; 23:57 Follow up: IV Status: Completed infusion [facility] 23:30 Drug: Acetaminophen 975 mg [acetaminophen 325 mg tablet (3 tabs)] Route: PO; [facility] 23:41 Drug: cefTRIAXone 1 grams [ceftriaxone 1 gram solution for injection] Route: IVPB; bcj Infused Over: 30 mins; Site: left antecubital; 04/13 00:12 Follow up: IV Status: Completed infusion [facility] 00:12 Drug: morphine 4 mg [morphine 4 mg/mL intravenous cartridge (1 mL)] Route: IVP; Site: [facility] left antecubital; Signatures: [facility] ED[facility] Hang Campos RN RN bcj Lissette Carter, Reg Reg gb Maddy Burrows, Hunter Guide Unit ml3 Jimmy Andrade PA-C PA-C ar2 Lynn Hou Colin, PA-C PA-C cc10 Divya Palacios,RN RN af2 Marija Bernal The chart was reviewed and I authenticate all verbal orders and agree with the evaluation and treatment provided.Corrections: (The following items were deleted from the chart) 02:41 02:31 Chlamydia & GC Amplification ordered. EDMS EDMS 02:47 02:39 C REACTIVE PROTEIN QUANTITATIV ordered. EDMS EDMS Attachments: 04/12 22:24 [facility] Payment Agreement gjb 04/13 10:24 T-Sheet-- Draft Copy gb Chart Complete MTDD
--- NOTE | 2016-04-15 03:59 | EDDOCDS ---
Physician Documentation [facility] Name: Neal Deleon Age: 35 yrs Sex: Male : 1980 Arrival Date: 04/12/2016 Time: 20:32 Bed I5 / M5 Private MD: CAAries LITTLEJOHN Disposition: 04/13/16 02:13 Hospitalization ordered by Elina Christopher for Observation. 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 - Bed requested for M PED. - Status is Observation. af2 - Condition is Stable. - Problem is new. - Symptoms are unchanged. Historical: - Allergies: No known drug Allergies; - Home Meds: 1. prednisone 20 mg Oral tab 2 tabs once daily 2. tramadol 50 mg Oral TbDL 50 mg as needed 3. Zithromax 250 mg Oral tab 1 tab once daily 4. hydrocodone-acetaminophen 5-325 mg Oral tab 1 tab every 4-6 hours 5. muscle relaxer Unknown - PMHx: none; - PSHx: none; - Social history: Smoking status: Patient states former smoker of tobacco. No barriers to communication noted, The patient speaks fluent Kiswahili. - Family history: Not pertinent. - : The pt / caregiver states he / she is not on anticoagulants. Home medication list is obtained from the patient. - Exposure Risk Screening:: None identified. Vital Signs: 04/12 20:34 BP 126 / 78; Pulse 109; Resp 18 S; Temp 100.2(O); Pulse Ox 97% on R/A; Weight 87.09 kg gr2 / 192 lbs (R); Height 78 in. (198.12 cm) (R); Pain 6/10; 23:17 BP 96 / 54; Pulse 75; Resp 18; Temp 100.0; Pulse Ox 95% ; Pain 9/10; ajs 23:23 BP 100 / 72 RA Supine (man/lg); ajs 04/13 00:10 BP 112 / 72 RA Supine (man/lg); ajs 01:58 BP 101 / 59; Pulse 59; Resp 18; Temp 96.8; Pulse Ox 98% ; ajs 02:57 BP 115 / 70; Pulse 59; Resp 18; Temp 96.2(O); Pulse Ox 96% on R/A; af2 01/08 20:34 Body Mass Index 22.19 (87.09 kg, 198.12 cm) gr2 MDM: 04/12 22:12 IV Saline Lock ordered. ar2 22:12 NS 0.9% 1000 ml IV at bolus once ordered. ar2 22:12 ketorolac 30 mg IVP once ordered. ar2 22:12 Ondansetron 4 mg IVP once ordered. ar2 22:13 CBC with Diff Ordered. EDMS 22:13 MED Profile Ordered. EDMS 22:13 UA Ordered. EDMS 22:13 Urine Culture Ordered. EDMS 22:13 -Influenza A&B Rapid Antigen - Nose Ordered. EDMS 22:14 Chest, 2 View (pa\E\lat) Ordered. EDMS 22:24 Financial registration complete. banner 22:24 [facility] Payment Agreement was scanned into [employer] and attached to record. gjb 23:06 CBC with Diff Reviewed. ar2 23:06 MED Profile Reviewed. ar2 23:06 UA Reviewed. ar2 23:06 -Influenza A&B Rapid Antigen - Nose Reviewed. ar2 23:08 cefTRIAXone 1 grams IVPB once over 30 mins; dilute in 50mL of NS or D5W ordered. ar2 23:10 CT ABD & PELVIS: IV Contrast Only Ordered. EDMS 23:15 morphine 4 mg IVP once ordered. ar2 23:15 Metoclopramide 10 mg IV at 40 mg/hr once over 15 mins ordered. ar2 23:15 Vital Signs ordered. ar2 23:15 Acetaminophen Tablet 975 mg PO once ordered. ar2 23:19 -Blood Culture (Adults Only), peripheral from different site, or from device/port/PICC ar2 etc. if present ordered. 23:20 Lactic Acid (Joe tube on ice) Ordered. EDMS 23:20 -Blood Culture Ordered. EDMS 23:22 BLOOD CULTURES Ordered. EDMS 23:31 -Blood Culture (Adults Only), peripheral from different site, or from device/port/PICC ajs etc. if present complete. 04/13 01:29 Lactic Acid (Joe tube on ice) Reviewed. cc10 01:59 CT ABD & PELVIS: IV Contrast Only Reviewed. cc10 02:08 NOTHING BY MOUTH+DIET ordered. EDMS 02:09 BED REQUEST+ADM ordered. EDMS 02:09 Pt & Aptt Ordered. EDMS 02:14 GC & Chlamydia Amplification Ordered. EDMS 02:26 SPUTUM CULTURE AND GRAM STAIN Ordered. EDMS 02:30 Admission / Observation Status ordered. EDMS 02:31 REGULAR DIET ordered. EDMS 02:31 COMPLETE BLOOD COUNT Ordered. EDMS 02:31 BASIC METABOLIC PROFILE Ordered. EDMS 02:31 HIV 1&2 ANTIBODY SCREEN Ordered. EDMS 02:31 HERPES SIMPLEX 1&2 IgM Ordered. EDMS 02:47 C REACTIVE PROTEIN QUANTITATIV Ordered. EDMS 10:24 T-Sheet-- Draft Copy was scanned into [employer] and attached to record. gb Administered Medications: 04/12 22:39 Drug: Ondansetron 4 mg Route: IVP; Site: left antecubital; [facility] 22:40 Drug: NS 0.9% 1000 ml [sodium chloride 0.9 % intravenous solution] Route: IV; Rate: bcj bolus; Site: left antecubital; 04/13 00:12 Follow up: IV Status: Completed infusion [facility] 04/12 22:40 Drug: ketorolac 30 mg [ketorolac 30 mg/mL (1 mL) injection solution (1 mL)] Route: IVP; [facility] Site: left antecubital; 22:58 Follow up: Response: Pain is decreased [facility] 23:30 Drug: Metoclopramide 10 mg [metoclopramide 5 mg/mL injection solution] Route: IV; Rate: bcj 40 mg/hr; Infused Over: 15 mins; Site: left antecubital; 23:57 Follow up: IV Status: Completed infusion [facility] 23:30 Drug: Acetaminophen 975 mg [acetaminophen 325 mg tablet (3 tabs)] Route: PO; [facility] 23:41 Drug: cefTRIAXone 1 grams [ceftriaxone 1 gram solution for injection] Route: IVPB; bcj Infused Over: 30 mins; Site: left antecubital; 04/13 00:12 Follow up: IV Status: Completed infusion [facility] 00:12 Drug: morphine 4 mg [morphine 4 mg/mL intravenous cartridge (1 mL)] Route: IVP; Site: [facility] left antecubital; Signatures: [facility] EDWV Hang Campos RN RN bcj Lissette Carter, Reg Reg gb Maddy Burrows, Account Services Representative Unit ml3 Jimmy Andrade PA-C PA-C ar2 Lynn Hou Colin, PA-C PA-C cc10 Divya Palacios,RN RN af2 Marija Bernal The chart was reviewed and I authenticate all verbal orders and agree with the evaluation and treatment provided.Corrections: (The following items were deleted from the chart) 02:41 02:31 Chlamydia & GC Amplification ordered. EDMS EDMS 02:47 02:39 C REACTIVE PROTEIN QUANTITATIV ordered. EDMS EDMS Attachments: 04/12 22:24 [facility] Payment Agreement gjb 04/13 10:24 T-Sheet-- Draft Copy gb Chart Complete MTDD
--- NOTE | 2016-04-15 03:59 | EDDOCDS ---
Nurse's Notes [facility] Name: Neal Deleon Age: 35 yrs Sex: Male : 1980 Arrival Date: 04/12/2016 Time: 20:32 Bed I5 / M5 [facility] Diagnosis: Nonobstructive reflux-associated chronic pyelonephritis Presentation: 04/12 20:41 Presenting complaint: Patient states: sharp pain in right lower back, headache, pain af2 all over, rash in genital area, cough, fever. pt seen in ER 3 times past week for same. Acute neurological deficits are not present. Mechanism of Injury: No Mechanism of Injury. Adult Sepsis Screening: The patient does not have new or worsening altered mentation. Patient's respiratory rate is less than 22. Systolic blood pressure is greater than 100. Patient has a qSOFA score of 0- Negative Sepsis Screen. Suicide/Homicide risk assessment- the patient denies having any suicidal and/or homicidal ideations and does not present with any other emotional, behavioral or mental health complaints. 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 Transition of care: patient was not received from another setting of care. 20:41 Acuity: BI Level 4 af2 20:41 Method Of Arrival: Walkin/Carried/Asstd af2 Triage Assessment: 20:44 General: Appears in no apparent distress, Behavior is cooperative. Pain: Location: back af2 Pain currently is 8 out of 10 on a pain scale. HIV screening NA for this visit Offered previously. GI: Reports nausea, vomiting. Musculoskeletal: Reports pain in back. Historical: - Allergies: No known drug Allergies; - Home Meds: 1. prednisone 20 mg Oral tab 2 tabs once daily 2. tramadol 50 mg Oral TbDL 50 mg as needed 3. Zithromax 250 mg Oral tab 1 tab once daily 4. hydrocodone-acetaminophen 5-325 mg Oral tab 1 tab every 4-6 hours 5. muscle relaxer Unknown - PMHx: none; - PSHx: none; - Social history: Smoking status: Patient states former smoker of tobacco. No barriers to communication noted, The patient speaks fluent Japanese. - Family history: Not pertinent. - : The pt / caregiver states he / she is not on anticoagulants. Home medication list is obtained from the patient. - Exposure Risk Screening:: None identified. Screenin:58 Screening information is obtained from the patient. Fall risk: No risks identified. bcj Assistance ADL's: requires no assistance with activities of daily living. Abuse/DV Screen: The patient / caregiver reports he/she is: not in a situation that causes fear, pain or injury. Nutritional screening: No deficits noted. Advance Directives: Currently, there is no health care proxy. home support is adequate. Assessment: 21:47 General: Appears uncomfortable, Behavior is appropriate for age, cooperative. Pain: mb9 Location: low back area Pain currently is 8 out of 10 on a pain scale. Pain radiates to right leg. Neurological: Level of Consciousness is awake, alert, Oriented to person, place, time. Respiratory: Airway is patent Respiratory effort is even, unlabored. 22:58 General: Appears uncomfortable, Behavior is cooperative. Pain: Location: back Pain bcj currently is 6 out of 10 on a pain scale. Pain radiates to right leg. Derm: Skin is pink, warm & dry. 23:37 Adult Sepsis Screening: The patient does not have new or worsening altered mentation. bcj Patient's respiratory rate is less than 22. Systolic blood pressure is less than or equal to 100 (1 point). Patient has a qSOFA score of 1- Negative Sepsis Screen. General: Appears in no apparent distress, Behavior is cooperative. Pain: Location: back Pain currently is 6 out of 10 on a pain scale. Derm: Skin is pink, warm & dry. 04/13 01:22 General: assumed care of pt at this time. rr even and unlabored. pt lying on stretcher af2 resting quietly on stretcher. will continue to monitor.. 02:07 General: pt updated regarding plan of care at this time. rr even and unlabored. at af2 bedside. . 02:50 General: Appears in no apparent distress, Behavior is appropriate for age, cooperative, af2 pt resting quietly with eyes closed, arouses easily to name. remains at bedside. report called to marina connolly on peds, she has agreed to assume care of pt. . Neurological: Level of Consciousness is awake, alert. Respiratory: Airway is patent Respiratory effort is even, unlabored. Derm: Skin is pink, warm & dry. Vital Signs: 04/12 20:34 BP 126 / 78; Pulse 109; Resp 18 S; Temp 100.2(O); Pulse Ox 97% on R/A; Weight 87.09 kg gr2 (R); Height 78 in. (198.12 cm) (R); Pain 6/10; 23:17 BP 96 / 54; Pulse 75; Resp 18; Temp 100.0; Pulse Ox 95% ; Pain 9/10; ajs 23:23 BP 100 / 72 RA Supine (man/lg); ajs 04/13 00:10 BP 112 / 72 RA Supine (man/lg); ajs 01:58 BP 101 / 59; Pulse 59; Resp 18; Temp 96.8; Pulse Ox 98% ; ajs 02:57 BP 115 / 70; Pulse 59; Resp 18; Temp 96.2(O); Pulse Ox 96% on R/A; af2 04/12 20:34 Body Mass Index 22.19 (87.09 kg, 198.12 cm) gr2 Vitals: 04/12 20:34 Log In Time: April 12, 2016 at 20:34. gr2 ED Course: 20:33 Patient visited by Kuldeep Chowdhury. gr2 20:33 Patient moved to Waiting gr2 20:34 [facility], Aries Meyer is Private Physician. gr2 20:35 Patient visited by Kuldeep Chowdhury. gr2 20:35 Patient moved to Pre RCE gr2 20:43 Triage Initiated af2 20:44 Patient visited by Divya Palacios,MARINA. af2 21:05 Patient moved to Triage 3 cln 21:49 Jimmy Andrade PA-C is [facility]. ar2 21:49 Marcus Call DO is Attending Physician. ar2 21:56 Patient visited by Jimmy Andrade PA-C. ar2 22:13 Eloina Sosa, RN is Primary Nurse. mb9 22:13 Patient moved to I5 / M5 mb9 22:18 Urine Culture Sent. cln 22:18 UA Sent. cln 22:24 [facility] [place] [place] was scanned into [employer] and attached to record. gjb 22:58 No apparent distress. Resting quietly. awaiting re-evaluation by ER physician. bcj 22:58 The patient / caregiver is instructed regarding the plan of care and ED course. Patient bcj has correct armband on for positive identification. Placed in gown. Bed in low position. Call light in reach. Side rails up X 1. Adult w/ patient. 22:58 Inserted saline lock: 20 gauge in left antecubital area. Labs drawn. (by ED staff). bcj Sent per order to lab. 23:00 Patient visited by Hang Campos RN. bcj 23:18 Patient visited by Lynn Hou. ajs 23:23 Patient visited by Lynn Hou. ajs 23:37 No apparent distress. Resting quietly. awaiting re-evaluation by ER physician. bcj 23:37 -Blood Culture Sent. ajs 23:37 Lactic Acid (Joe tube on ice) Sent. ajs 23:37 BLOOD CULTURES Sent. ajs 23:37 IV is intact. bcj 23:38 Patient visited by Hang Campos RN. bcj 04/13 00:10 Patient visited by Lynn Hou. ajs 00:42 Primary Nurse role handed off by Eloina Sosa RN kb5 00:48 PHCP role handed off by Jimmy Andrade PA-C cc10 00:48 Harley Peraza PA-C is PHCP. cc10 01:01 Patient visited by Divya Palacios RN. af2 01:23 Patient visited by Divya Palacios RN. af2 01:46 CT ABD & PELVIS: IV Contrast Only Returned. EDMS 01:58 Patient visited by Lynn Hou. ajs 02:07 Patient visited by Divya Palacios RN. af2 02:12 Elina Christopher is Hospitalizing Provider. cc10 02:52 No procedures done that require assistance. af2 02:53 Patient visited by Divya Palacios RN. af2 10:24 T-Sheet-- Draft Copy was scanned into [employer] and attached to record. gb Administered Medications: 04/12 22:39 Drug: Ondansetron 4 mg Route: IVP; Site: left antecubital; bcj 22:40 Drug: NS 0.9% 1000 ml [sodium chloride 0.9 % intravenous solution] Route: IV; Rate: bcj bolus; Site: left antecubital; 04/13 00:12 Follow up: IV Status: Completed infusion j 04/12 22:40 Drug: ketorolac 30 mg [ketorolac 30 mg/mL (1 mL) injection solution (1 mL)] Route: IVP; bcj Site: left antecubital; 22:58 Follow up: Response: Pain is decreased [facility] 23:30 Drug: Metoclopramide 10 mg [metoclopramide 5 mg/mL injection solution] Route: IV; Rate: bcj 40 mg/hr; Infused Over: 15 mins; Site: left antecubital; 23:57 Follow up: IV Status: Completed infusion [facility] 23:30 Drug: Acetaminophen 975 mg [acetaminophen 325 mg tablet (3 tabs)] Route: PO; bcj 23:41 Drug: cefTRIAXone 1 grams [ceftriaxone 1 gram solution for injection] Route: IVPB; bcj Infused Over: 30 mins; Site: left antecubital; 04/13 00:12 Follow up: IV Status: Completed infusion [facility] 00:12 Drug: morphine 4 mg [morphine 4 mg/mL intravenous cartridge (1 mL)] Route: IVP; Site: bcj left antecubital; Order Results: Lab Order: CBC with Diff; SPEC'M 04/12/16 22:30 Test: WHITE BLOOD COUNT; Value: 13.9; Range: 4.0-10.0; Abnormal: Above high normal; Units: K/mm3; Status: F Test: RED BLOOD COUNT; Value: 5.21; Range: 4.30-6.10; Units: M/mm3; Status: F Test: HEMOGLOBIN; Value: 15.9; Range: 14.0-18.0; Units: g/dl; Status: F Test: HEMATOCRIT; Value: 45.5; Range: 42.0-52.0; Units: %; Status: F Test: MEAN CORPUSCULAR VOLUME; Value: 87.3; Range: 80.0-96.0; Units: fl; Status: F Test: MEAN CORPUSCULAR HEMOGLOBIN; Value: 30.6; Range: 27.0-33.0; Units: pg; Status: F Test: MEAN CORPUSCULAR HGB CONC; Value: 35.0; Range: 32.0-36.5; Units: g/dl; Status: F Test: RED CELL DISTRIBUTION WIDTH; Value: 12.0; Range: 11.5-14.5; Units: %; Status: F Test: PLATELET COUNT, AUTOMATED; Value: 316; Range: 150-450; Units: k/mm3; Status: F Test: NEUTROPHILS %; Value: 75.0; Range: 36.0-66.0; Abnormal: Above high normal; Units: %; Status: F Test: LYMPH %; Value: 13.7; Range: 24.0-44.0; Abnormal: Below low normal; Units: %; Status: F Test: MONO %; Value: 5.7; Range: 0.0-5.0; Abnormal: Above high normal; Units: %; Status: F Test: EOS %; Value: 2.6; Range: 0.0-3.0; Units: %; Status: F Test: BASO %; Value: 0.3; Range: 0.0-1.0; Units: %; Status: F Test: LARGE UNSTAINED CELL %; Value: 2.7; Range: 0.0-4.0; Units: %; Status: F Test: NEUTROPHILS #; Value: 10.4; Range: 1.8-7.7; Abnormal: Above high normal; Units: K/mm3; Status: F Test: LYMPH #; Value: 1.9; Range: 1.5-4.5; Units: K/mm3; Status: F Test: MONO #; Value: 0.8; Range: 0.0-0.8; Units: K/mm3; Status: F Test: EOS #; Value: 0.4; Range: 0.0-0.50; Units: K/mm3; Status: F Test: BASO #; Value: 0.0; Range: 0.0-0.2; Units: K/mm3; Status: F Test: LARGE UNSTAINED CELL #; Value: 0.4; Range: 0.0-0.4; Units: K/mm3; Status: F Lab Order: MED Profile; SPEC'M 04/12/16 22:30 Test: GLUCOSE, FASTING; Value: 108; Range: 70-105; Abnormal: Above high normal; Units: MG/DL; Status: F Test: BLOOD UREA NITROGEN; Value: 10; Range: 7-18; Units: MG/DL; Status: F Test: CREATININE FOR GFR; Value: 0.90; Range: 0.70-1.30; Units: MG/DL; Status: F Test: GLOMERULAR FILTRATION RATE; Value: > 60.0; Range: >60; Status: F Test: SODIUM LEVEL; Value: 135; Range: 136-145; Abnormal: Below low normal; Units: MEQ/L; Status: F Test: POTASSIUM SERUM; Value: 3.8; Range: 3.5-5.1; Units: MEQ/L; Status: F Test: CHLORIDE LEVEL; Value: 99; Range: 98-107; Units: MEQ/L; Status: F Test: CARBON DIOXIDE LEVEL; Value: 27; Range: 21-32; Units: MEQ/L; Status: F Test: ANION GAP; Value: 9; Range: 8-16; Units: MEQ/L; Status: F Test: CALCIUM LEVEL; Value: 8.7; Range: 8.5-10.1; Units: MG/DL; Status: F Test Note: ; Units are mL/min/1.73 m2 Chronic Kidney Disease Staging per NKF: Stage I & II GFR >=60 Normal to Mildly Decreased Stage III GFR 30-59 Moderately Decreased Stage IV GFR 15-29 Severely Decreased Stage V GFR <15 Very Little GFR Left ESRD GFR <15 on IGNITION EXPERT Lab Order: UA; SPEC'M 04/12/16 22:15 Test: APPEARANCE, URINE; Value: CLEAR; Range: CLEAR; Status: F Test: COLOR, URINE; Value: YELLOW; Range: YELLOW; Status: F Test: PH,URINE; Value: 8.0; Range: 5.0-9.0; Units: UNITS; Status: F Test: SPECIFIC GRAVITY URINE AUTO; Value: 1.009; Range: 1.002-1.035; Status: F Test: PROTEIN, URINE AUTO; Value: NEGATIVE; Range: NEGATIVE; Units: mg/dL; Status: F Test: GLUCOSE, URINE (UA) AUTO; Value: NEGATIVE; Range: NEGATIVE; Units: mg/dL; Status: F Test: KETONE, URINE AUTO; Value: NEGATIVE; Range: NEGATIVE; Units: mg/dL; Status: F Test: UROBILINOGEN, URINE AUTO; Value: 2.0; Range: 0.0-2.0; Abnormal: Above high normal; Units: mg/dL; Status: F Test: BILIRUBIN, URINE AUTO; Value: NEGATIVE; Range: NEGATIVE; Status: F Test: NITRITE, URINE AUTO; Value: NEGATIVE; Range: NEGATIVE; Status: F Test: LEUKOCYTE ESTERASE, URINE AUTO; Value: 2+; Range: NEGATIVE; Abnormal: Above high normal; Status: F Test: BLOOD, URINE BLOOD; Value: NEGATIVE; Range: NEGATIVE; Status: F Test: WBC, URINE AUTO; Value: 43; Range: 0-3; Abnormal: Above high normal; Units: /HPF; Status: F Test: RBC, URINE AUTO; Value: 2; Range: 0-3; Units: /HPF; Status: F Test: BACTERIA, URINE AUTO; Value: 1+; Range: NEGATIVE; Abnormal: Above high normal; Status: F Test: SQUAMOUS EPITHELIAL CELL UR AU; Value: 0; Range: 0-6; Units: /HPF; Status: F Test: HYALINE CAST, URINE AUTO; Value: 0; Range: 0-1; Units: /LPF; Status: F Lab Order: -Influenza A&B Rapid Antigen - Nose; SPEC'M 04/12/16 22:30 Test: INFLUENZA A RAPID SCR by ICA; Value: INFLUENZA A RESULTS NEGATIVE; Status: F Test: INFLUENZA A RAPID SCR by ICA; Value: Comments:; Status: F Test: INFLUENZA B RAPID SCR by ICA; Value: INFLUENZA B RESULTS NEGATIVE; Status: F Test Note: ; The Influenza test is a direct rapid immunoassay for the qualitative detection of Influenza viral antigen. Cell culture (Viral Culture) testing should be considered to confirm NEGATIVE results and to assist in detecting other viruses that can provide similar clinical symptoms. Please contact the lab within 24 hours ([phone]) if confirmatory testing is desired. Lab Order: Lactic Acid (Joe tube on ice); SPEC'M 04/12/16 23:32 Test: LACTIC ACID LEVEL, LACTATE; Value: 0.6; Range: 0.4-2.0; Units: MMOL/L; Status: F Lab Order: Pt & Aptt; SPEC'M 04/12/16 22:30 Test: PROTHROMBIN TIME; Value: 14.9; Range: 12.3-14.5; Abnormal: Above high normal; Units: SECONDS; Status: F Test: INR; Value: 1.16; Status: F Test: PARTIAL THROMBOPLASTIN TIME; Value: 36.6; Range: 26.6-37.1; Units: SECONDS; Status: F Test Note: ; THERAPUTIC HUMAN INR VALUES INDICATIONS NORMAL RANGES PROPHYLAXIS/TREATMENT OF: VENOUS THROMBOSIS 2.0-3.0 PULMONARY EMBOLISM 2.0-3.0 PREVENTION OF SYSTEMIC EMBOLISM FROM: TISSUE HEART VALVES 2.0-3.0 ACUTE MYOCARDIAL INFARCTION 2.0-3.0 VALVULAR HEART DISEASE 2.0-3.0 ATRIAL FIBRILLATION 2.0-3.0 MECHANICAL VALVES(HIGH RISK) 2.5-3.5 RECURRENT MYOCARDIAL INFARCTION 2.5-3.5 Radiology Order: CT ABD & PELVIS: IV Contrast Only Test: CT ABD & PELVIS: IV Contrast Only REASON FOR EXAMINATION: right flank pain ? pyelonephritis; ; CLINICAL HISTORY: Abdominal pain.; TECHNIQUE: Multiple axial, sagittal and coronal CT images were obtained through the abdomen and pelvi; s after administration of intravenous contrast material.; COMMENTS:; The liver is of uniform attenuation without mass or defect. There is no intra or extrahepatic biliary; ductal dilatation. The spleen is normal. The gallbladder is within normal limits. The pancreas is of; normal contour and attenuation characteristics. There is no evidence of adrenal mass.; Heterogeneous nephrogram of the right kidney. 3.5 cm ill-defined hypodense lesion in the mid aspect o; f the right kidney with associated perirenal fat stranding. Associated well defined hypodense areas w; ithin the central aspect of the lesion with the largest measuring 1.5 cm.; There is no evidence of renal or ureteral mass. No renal or ureteral calculi are identified. There is; no hydroureter or hydronephrosis.; No evidence for appendicitis. There is no bowel wall thickening. No evidence for small or large gabrielle; l obstruction. There is no evidence of abdominal ascites or lymphadenopathy. Mild large bowel fecal s; tasis.; There is no evidence of intrinsic or extrinsic bladder mass. There is no pelvic ascites or lymphadeno; flako. Prior appendectomy.; Images of the lung bases show no evidence of pleural or parenchymal mass. There are no pleural effusi; ons.; The bony structures are free of lytic or blastic lesions. Multilevel degenerative changes are seen in; volving the thoracolumbar spine. Scattered calcifications are seen involving the aorta and major bran; ches compatible with atherosclerosis.; IMPRESSION:; Right pyelonephritis.; Intrarenal multifocal phlegmon formation.; Clinical evaluation and follow up are suggested.; Prior appendectomy.; Thank you for your kind referral of this patient.; ; Outcome: 02:13 Decision to Hospitalize by Provider. cc10 02:52 Discharge Assessment: Patient awake, alert and oriented x 3. No cognitive and/or af2 functional deficits noted. Patient verbalized understanding of disposition instructions. patient administered narcotics - yes. Patient was admitted to the hospital or transferred to another facility. The following High Risk Discharge criteria are identified: None. Admitted to Pediatrics accompanied by tech, family with patient, via stretcher, with chart. Condition: stable. CT Study completed. Property :Personal belongings accompany Pt. 02:58 Patient left the ED. af2 Signatures: Dispatcher [employer] EDMS Hang Campos, RN RN Lissette Garrison, Reg Reg gb Shay Zavala, SAILOR SAILOR kb5 Jimmy Andrade, PA-C PA-C ar2 Lynn Hou Gainslee gr2 Harley Peraza, PA-C PA-C cc10 Catrachito Dominguez,RN RN mb9 Divya Palacios RN RN af2 Marija Bernal Crystal, SAILOR SAILOR cln Chart Complete MTDD
[2016-04-15 04:00] VITALS: BP 118/68
[2016-04-15 07:05] LABS: ANION GAP 7 MEQ/L (8-16); BLOOD UREA NITROGEN 4 MG/DL (7-18); CARBON DIOXIDE LEVEL 29 MEQ/L (21-32); CHLORIDE LEVEL 103 MEQ/L (98-107); CREATININE FOR GFR 0.81 MG/DL (0.70-1.30); GLOMERULAR FILTRATION RATE > 60.0 (>60); GLUCOSE, FASTING 92 MG/DL (70-105); MEAN CORPUSCULAR HEMOGLOBIN 30.6 pg (27.0-33.0); MEAN CORPUSCULAR HGB CONC 34.3 g/dl (32.0-36.5); MEAN CORPUSCULAR VOLUME 89.4 fl (80.0-96.0); POTASSIUM SERUM 3.8 MEQ/L (3.5-5.1); RED CELL DISTRIBUTION WIDTH 12.1 % (11.5-14.5); SODIUM LEVEL 139 MEQ/L (136-145); WHITE BLOOD COUNT 9.8 K/mm3 (4.0-10.0)
[2016-04-15 08:00] VITALS: BP 120/84
[2016-04-15] MEDS: KETOROLAC 30 MG/ML VIAL (J1885) IV PRN ×3 (08:04→23:38)
[2016-04-15 12:00] VITALS: BP 128/83
--- NOTE | 2016-04-15 12:29 | IPNPDOC ---
Date of Service/Time Apr 15, 2016 Progress Note SUBJECTIVE: Patient is a 35-year-old male presenting with suspected phlegmon of right kidney. Patient was examined at bedside and found to be sitting in bed at 50 degrees. Patient had a fever of 102.1 overnight. He developed a new headache this morning. The pain is located in the back of his head. He continues to have night sweats, coughing, back pain. Patient is still only able to consume yogurt and pudding without vomiting. Denies chest pain, shortness of breath, nausea, and diarrhea. OBJECTIVE: PHYSICAL EXAMINATION: GENERAL: NAD. A&OX3. HEENT: Normocephalic, atraumatic. EOMI. Mucous membranes moist. Neck supple. CARDIOVASCULAR: RRR. Normal S1 and S2. No murmurs, rubs or gallops. RESPIRATORY: Clear to auscultation. No rales, rhonchi or wheezes. ABDOMINAL: Soft, non-tender. No peritoneal signs, ecchymosis, or masses. EXTREMITIES: No edema, cyanosis or pallor. IMAGIN mm lung nodule in right lower lobe. Echocardiogram: Yes. No evidence of vegetations. DVT prophylaxis ordered?: No. Patient does not have risk factors. ASSESSMENT AND PLAN: This is a 35-year-old male with suspected phlegmon of right kidney. PROBLEMS: 1. Renal Phlegmon. Suspect Infectious etiology, however, neoplasm remains in the differential. Blood cultures came back negative. Scrotal ultrasound revealed left side varicocele and right sided hydrocele but no masses. Tumor markers are pending for possible testicular cancer. Consider renal percutaneous needle biopsy or fine needle aspiration. Otherwise, white count and Tmax continue to improve daily, will continue with IV antibiotics. 2. Cough. Tessalon pearls have not provided any relief. Will attempt tylenol with codeine to help cough. Sputum cultures pending. 3. Genital Ulcers. Lesions seem to be healing. HIV, Chlamydia and gonorrhea negative. HSV and RPR still pending. 4. Lung Nodule. Follow up CT in three months. VS, I&O, 24H, Fishbone VS, I&O, 24H, Fishbone Vital Signs Date Time Temp Pulse Resp B/P Pulse Ox O2 Delivery O2 Flow Rate FiO2 04/15/16 07:15 18 04/15/16 06:29 Room Air 04/15/16 04:00 100.1 85 118/68 94 I&O- Last 24 Hours up to 6 AM 04/15/16 06:00 Intake Total 2400 ml Output Total 3500 ml Balance -1100 ml Laboratory Tests 2 04/15/16 06:27: Anion Gap 7L, Blood Urea Nitrogen 4L, Creatinine 0.81, Sodium Level 139, Potassium Level 3.8, Chloride Level 103, Carbon Dioxide Level 29, Calcium Level 8.0L, Glomerular Filtration Rate > 60.0, Syphilis Serology NONREACTIVE Laboratory Tests 04/15/16 06:27 Calcium Level 8.0 L, Red Blood Count 4.35, Mean Corpuscular Volume 89.4, Mean Corpuscular Hemoglobin 30.6, Mean Corpuscular Hemoglobin Concent 34.3, Red Cell Distribution Width 12.1 Microbiology 04/13/16 Blood Culture - Preliminary, Resulted No growth after 24 hours . All specim... 04/13/16 Blood Culture - Preliminary, Resulted No growth after 24 hours . All specim... 04/12/16 Blood Culture - Preliminary, Resulted No Growth after 48 hours. All Specime... 04/12/16 Blood Culture - Preliminary, Resulted No Growth after 48 hours. All Specime... 04/13/16 Gram Stain - Final, Complete 04/13/16 Sputum Culture - Final, Complete Yeast Like Organism 04/12/16 Influenza Virus Type A Antigen - Final, Complete 04/12/16 Influenza Virus Type B Antigen - Final, Complete 04/12/16 Urine Culture - Final, Complete ALENA CONCEPCION DO Apr 15, 2016 10:10
[2016-04-15] MEDS: CODEINE SULFATE 30 MG TAB PO PRN ×2 (14:29→21:17)
[2016-04-15 16:00] VITALS: BP 125/78
--- NOTE | 2016-04-15 17:00 | REP ---
Clinical: Evaluate presumed renal phlegmon and pyelonephritis. Technique: Real time lee scale ultrasound examination using curved array transducer. Findings: The right kidney is normal in reniform shape and measures 13.1 x 5.9 x 5.2 cm without hydronephrosis and demonstrates 4.9 x 3.5 x 4.9 cm complex area in the mid to upper pole consistent with phlegmon versus mass similar to findings by CT. The left kidney measures 12.0 x 4.8 x 7.1 cm without hydronephrosis, nephrolithiasis, cystic or renal mass lesion. Bladder is unremarkable. Prostate measures 4.1 x 2.7 x 4.5 cm. Impression: 4.9 cm complex lesion in the right kidney. Differential diagnosis includes phlegmon versus mass. Finding is essentially unchanged compared to recent CT. Signed by Dario Redman MD 04/15/2016 04:52 P
--- NOTE | 2016-04-15 19:35 | SMCUROLCON ---
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 He notes that he first started having flank pain about 2 weeks ago and is gradually worsened, prompting his presentation to the hospital. He notes that prior to a few weeks ago he never had flank pain. He denies trauma to the area. He denies dysuria, hematuria, or other voiding complaints. He also notes nausea, vomiting, and a chronic cough for over a year, which has recently worsened. His w/u thus far has included urine and blood cultures, both of which are negative. He has had a CT A/P w/ IV contrast which was notable for a 4.5cm right renal mass concerning for abscess versus tumor. Chest CT was notable for a 1cm noncalcified nodule in the LLL which is a new finding compared to a chest CT from 2015. He has been on broad-spectrum antibiotics since admission and continues to spike fevers and has not had any improvement in his right flank pain. Past Medical History Medical History see HPI Surgical Hstory appendectomy Medications Current Medications Current Medications Acetaminophen (Tylenol) 650 mg Q4HP PRN PO MILD PAIN OR FEVER Last administered on 04/14/16 13:26; Start 04/13/16 at 02:30; Stop 05/13/16 at 02:29 Acetaminophen (Tylenol) 975 mg STK-MED ONCE As Ordered ; Start 04/12/16 at 23:22 ; Stop 04/12/16 at 23:23; Status DC Benzonatate (Tessalon Perles) 100 mg TIDP PRN PO COUGH Last administered on 16:55; Start 04/13/16 at 14:00; Stop 05/13/16 at 13:59 Ceftriaxone Sodium 1 gm/ Dextrose 50 ml @ 100 mls/hr Q12H IV ; Start 04/13/16 at 02:30; Stop 04/13/16 at 02:41; Status DC Ceftriaxone Sodium/Dextrose (Rocephin/ Dextrose 5% Mini-Bag Plus) 50 ml @ 100 mls/hr Q12H IV Last administered on 04/15/16 14:25; Start 04/13/16 at 14:30; Stop 04/20/16 at 14:29 Ceftriaxone Sodium (Rocephin) 1 gm STK-MED ONCE As Ordered ; Start 04/12/16 at 23 :10; Stop 04/12/16 at 23:11; Status DC Codeine Sulfate (Codeine Sulfate) 30 mg Q4HP PRN PO COUGH Last administered on 04/15/16 14:29; Start 04/15/16 at 12:30; Stop 04/22/16 at 12:29 Home Med (Med Rec Complete!) ASDIRECTED XX ; Start 04/13/16 at 03:00; Stop at 06:56; Status DC Iopamidol 100 ml 100 ml STK-MED ONCE As Ordered ; Start 04/12/16 at 23:38; Stop 04/12/16 at 23:39; Status DC Ketorolac Tromethamine (ToRADol) 15 mg Q6HP PRN IV pain Last administered on 17:54; Start 04/13/16 at 19:00; Stop 04/18/16 at 18:59 Ketorolac Tromethamine (ToRADol) 30 mg STK-MED ONCE As Ordered ; Start 04/12/16 at 22:19; Stop 04/12/16 at 22:20; Status DC Metoclopramide HCl (Reglan) 10 mg STK-MED ONCE As Ordered ; Start 04/12/16 at 23: 22; Stop 04/12/16 at 23:23; Status DC Morphine Sulfate (Morphine Sulfate Inj) 2 mg Q2HP PRN IV BREAKTHROUGH PAIN Last administered on 04/14/16 22:23; Start 04/13/16 at 18:45; Stop 04/20/16 at 18:44 Morphine Sulfate (Morphine Sulfate Inj) 4 mg STK-MED ONCE As Ordered ; Start 04/12/16 at 23:22; Stop 04/12/16 at 23:23; Status DC Ondansetron HCl (Zofran) 4 mg STK-MED ONCE As Ordered ; Start 04/12/16 at 22:19; Stop 04/12/16 at 22:20; Status DC Ondansetron HCl 4 mg 4 mg Q6HP PRN IV NAUSEA OR VOMITING Last administered on 18:03; Start 04/13/16 at 02:30; Stop 05/13/16 at 02:29 Oxycodone/ Acetaminophen (Percocet 5mg/ 325mg Tablet) 1 tab Q4HP PRN PO MODERATE PAIN (PS 5-7) Last administered on 04/15/16 16:53; Start 04/13/16 at 02 :30; Stop 04/20/16 at 02:29 Sodium Chloride (Nacl 0.9%) 500 ml BOLUS ONCE IV Last administered on 20:45; Start 04/13/16 at 20:45; Stop 04/13/16 at 20:46; Status DC Sodium Chloride (Nacl 0.9%) 1,000 ml @ 80 mls/hr [id number] IV Last administered on 04/13/16 15:43; Start 04/13/16 at 02:25; Stop 04/13/16 at 18:50; Status DC Sodium Chloride (Nacl 0.9%) 1,000 ml @ 100 mls/hr Q10H IV Last administered on 04/15/16 11:20; Start 04/13/16 at 18:45; Stop 05/13/16 at 18:44 Sodium Chloride 750 ml 750 ml BOLUS ONCE IV Last administered on 04/13/16 18: 53; Start 04/13/16 at 18:45; Stop 04/13/16 at 18:50; Status DC Allergies Allergies: Coded Allergies: No Known Drug Allergy (Unverified Allergy, Unknown, 04/13/16) Review of Systems Constitutional: Reports: Fever Skin: Denies: Lesions, Rash Pulmonary: Reports: Cough (chronic productive cough) Cardiovascular: Denies Chest Pain, Denies Palpitations Gastrointestinal: Reports: Abdominal Pain, Nausea, Vomiting Genitourinary: Denies: Dysuria, Frequency, Hematuria, Incontinence, Other Symptoms, Retention Musculoskeletal: Reports: Back Pain (severe right flank pain) Psych: Reports: Mood Normal Physical Examination General Exam: : Alert: Cooperative Chest Exam: : Normal air movement Heart Exam: : Rate Normal: Regular Rhythm Abdomen Exam: : SoftNo: Tenderness Skin Exam: : Nl turgor and temperature Neuro Exam: : Normal Speech Psych Exam: : Mental status NL: Mood NL Vital Signs/I&O Vital Signs Date Time Temp Pulse Resp B/P Pulse Ox O2 Delivery O2 Flow Rate FiO2 04/15/16 17:50 18 04/15/16 17:22 101.8 04/15/16 16:00 96 125/78 96 Room Air I&O- Last 24 Hours up to 6 AM 04/15/16 06:00 Intake Total 2400 ml Output Total 3500 ml Balance -1100 ml Laboratory Data 24H Labs Laboratory Tests 2 04/15/16 06:27: Anion Gap 7L, Blood Urea Nitrogen 4L, Creatinine 0.81, Sodium Level 139, Potassium Level 3.8, Chloride Level 103, Carbon Dioxide Level 29, Calcium Level 8.0L, Glomerular Filtration Rate > 60.0, Syphilis Serology NONREACTIVE CBC/BMP Laboratory Tests 04/15/16 06:27 Calcium Level 8.0 L, Red Blood Count 4.35, Mean Corpuscular Volume 89.4, Mean Corpuscular Hemoglobin 30.6, Mean Corpuscular Hemoglobin Concent 34.3, Red Cell Distribution Width 12.1 Microbiology Microbiology 04/13/16 Blood Culture - Preliminary, Resulted No growth after 24 hours . All specim... 04/13/16 Blood Culture - Preliminary, Resulted No growth after 24 hours . All specim... 04/12/16 Blood Culture - Preliminary, Resulted No Growth after 48 hours. All Specime... 04/12/16 Blood Culture - Preliminary, Resulted No Growth after 48 hours. All Specime... 04/13/16 Gram Stain - Final, Complete 04/13/16 Sputum Culture - Final, Complete Yeast Like Organism 04/12/16 Influenza Virus Type A Antigen - Final, Complete 04/12/16 Influenza Virus Type B Antigen - Final, Complete 04/12/16 Urine Culture - Final, Complete Assessment This is a 35 y/o M w/ a 4.5cm right renal mass concerning for tumor versus abscess. Given the persistent fevers and right flank pain, this is likely an abscess. All cultures have been negative. My only concern is the possibility of renal TB given his history and chronic cough. Plan - recommend IR aspiration/drainage and/or biopsy of the lesion tomorrow (order placed) - would send any fluid obtained for aerobic and anaerobic cultures as well as TB - recommend ID consult - would also recommend putting the patient on TB precautions for now until ID has reviewed the patient's case - will f/u tomorrow after patient has gone to IR VICKI GRAY MD Apr 15, 2016 19:35
[2016-04-15 20:00] VITALS: BP 120/72
[2016-04-16] VITALS (10 sets, daily range): BP systolic 102–140; BP diastolic 58–89
[2016-04-16] MEDS: CODEINE SULFATE 30 MG TAB PO PRN ×4 (02:01→22:44)
[2016-04-16] MEDS: cefTRIAXone SOD 2 GM in D5W MINI-BAG PLUS 50 ML IV SCH ×2 (02:02→16:44)
[2016-04-16] MEDS: KETOROLAC 30 MG/ML VIAL (J1885) IV PRN ×3 (05:27→22:44)
[2016-04-16] MEDS: BENZONATATE 100 MG CAP PO PRN ×3 (05:28→22:43)
[2016-04-16] MEDS: PERCOCET 5MG/325MG TAB PO PRN ×3 (05:28→17:12)
[2016-04-16 07:23] LABS: MEAN CORPUSCULAR HEMOGLOBIN 30.4 pg (27.0-33.0); MEAN CORPUSCULAR HGB CONC 34.2 g/dl (32.0-36.5); MEAN CORPUSCULAR VOLUME 88.7 fl (80.0-96.0); RED CELL DISTRIBUTION WIDTH 12.1 % (11.5-14.5); WHITE BLOOD COUNT 12.4 K/mm3 (4.0-10.0)
[2016-04-16 07:30] LABS: ANION GAP 8 MEQ/L (8-16); BLOOD UREA NITROGEN 6 MG/DL (7-18); CALCIUM LEVEL 8.5 MG/DL (8.5-10.1); CARBON DIOXIDE LEVEL 28 MEQ/L (21-32); CHLORIDE LEVEL 106 MEQ/L (98-107); CREATININE FOR GFR 0.85 MG/DL (0.70-1.30); GLOMERULAR FILTRATION RATE > 60.0 (>60); GLUCOSE, FASTING 103 MG/DL (70-105); POTASSIUM SERUM 3.9 MEQ/L (3.5-5.1); SODIUM LEVEL 142 MEQ/L (136-145)
[2016-04-16] MEDS: NS 1,000 ML IV SCH ×2 (08:03→22:43)
[2016-04-16] MEDS: MORPHINE 2 MG/ML 1ML SYRINGE IV PRN (09:35)
--- NOTE | 2016-04-16 13:01 | IPNPDOC ---
Date of Service/Time Apr 16, 2016 Progress Note SUBJECTIVE: The patient is a 35-year-old male admitted with a reason for visit of possible phlegmon of right kidney. Patient was examined at bedside and found laying down in bed at 0 degrees. He is on contact precautions for suspected recurrent tuberculosis. Patient is irritated by his new isolation precautions and npo requirement for abscess drainage. He admits to still having a productive cough, night sweats and a headache located in the back of his head. No improvement in flank pain. Patient had a fever of 101.8 in the last 24 hours. He denies chest pain, shortness of breath, nausea, vomiting, and diarrhea. OBJECTIVE: PHYSICAL EXAMINATION: GENERAL: NAD. A&Ox3 HEENT: Normocephalic, atraumatic. Mucous membranes moist. Neck supple. EOMI CARDIOVASCULAR: RRR. Normal S1 and S2. RESPIRATORY: Clear to auscultation. No wheezes, rales or rhonchi. ABDOMINAL: Soft, non-tender. Normoactive bowel sounds. EXTREMITIES: No cyanosis, clubbing or edema. IMAGING: Ultrasound confirmed a 4.9cm lesion in right kidney DVT prophylaxis ordered?: No. He does not have risk factors. ASSESSMENT AND PLAN: This is a 35 year old male presenting with possible phlegmon of right kidney. PROBLEMS: 1. Renal Phlegmon. Suspect Infectious etiology, however, neoplasm remains in the differential. Blood cultures came back negative. Scrotal ultrasound revealed left side varicocele and right sided hydrocele but no masses. Tumor markers are pending for possible testicular cancer. Urology and Interventional Radiology have been consulted and it was recommended to aspirate and biopsy the lesion on the kidney and send for cultures. Patient is scheduled to have the procedure today. Awaiting Infectious Disease consult for possibility of tuberculosis. Patient will remain on contact isolation until tuberculosis can be ruled out. A Quantiferon Gold test has been ordered. White count was elevated at 12.4 and patient spiked a 101.8 fever in the last 24 hours. Will continue with IV antibiotics. 2. Cough. Tylenol with codeine has not given patient any relief. Sputum cultures pending. 3. Genital Ulcers. Lesions seem to be healing. HIV, Chlamydia, Syphilis and gonorrhea negative. HSV still pending. 4. Lung Nodule. Follow up CT in three months. VS, I&O, 24H, Fishbone VS, I&O, 24H, Fishbone Vital Signs Date Time Temp Pulse Resp B/P Pulse Ox O2 Delivery O2 Flow Rate FiO2 04/16/16 08:35 18 04/16/16 08:33 Room Air 04/16/16 04:00 101.7 82 122/64 96 I&O- Last 24 Hours up to 6 AM 04/16/16 06:00 Intake Total 1430 ml Output Total 1000 ml Balance 430 ml Laboratory Tests 2 04/16/16 07:08: Anion Gap 8, Blood Urea Nitrogen 6L, Creatinine 0.85, Sodium Level 142, Potassium Level 3.9, Chloride Level 106, Carbon Dioxide Level 28, Calcium Level 8.5, Glomerular Filtration Rate > 60.0 04/16/16 08:18: Laboratory Tests 04/16/16 07:08 Calcium Level 8.5, Red Blood Count 4.48, Mean Corpuscular Volume 88.7, Mean Corpuscular Hemoglobin 30.4, Mean Corpuscular Hemoglobin Concent 34.2, Red Cell Distribution Width 12.1 Microbiology 04/13/16 Blood Culture - Preliminary, Resulted No Growth after 48 hours. All Specime... 04/13/16 Blood Culture - Preliminary, Resulted No Growth after 48 hours. All Specime... 04/12/16 Blood Culture - Preliminary, Resulted No Growth after 72 hours. All specime... 04/12/16 Blood Culture - Preliminary, Resulted No Growth after 72 hours. All specime... 04/13/16 Gram Stain - Final, Complete 04/13/16 Sputum Culture - Final, Complete Yeast Like Organism 04/12/16 Influenza Virus Type A Antigen - Final, Complete 04/12/16 Influenza Virus Type B Antigen - Final, Complete 04/12/16 Urine Culture - Final, Complete ALENA CONCEPCION DO Apr 16, 2016 09:57
[2016-04-16] MEDS ORDERED: LIDOCAINE 2% MDV 20 ML VIAL As Ordered ONE (14:33)
[2016-04-16] MEDS ORDERED: SODIUM BICARBONATE 8.4% INJ 50MEQ 50 ML VIAL As Ordered ONE (14:33)
[2016-04-16] MEDS ORDERED: LIDOCAINE W/EPINEPHRINE 1% 20ML VIAL As Ordered ONE (14:33)
[2016-04-16] MEDS ORDERED: NORCO, ANEXSIA 5/325MG TABLET (HYDROcodone/ACETAMINOPHEN) As Ordered ONE (16:29)
[2016-04-16] MEDS: ACETAMINOPHEN TAB 650MG DOSE (2X325MG) PO PRN (17:31)
--- NOTE | 2016-04-16 17:44 | IPNPDOC ---
Assessment/Plan Date Seen The patient was seen on 04/16/16. Patient Summary This is a 35 y/o M w/ a 4.5cm right renal mass and persistent fevers. Based on the drainage of purulent fluid from the mass, it is likely an abscess/phlegmon. All cultures thus far remain negative. The patient is still on contact precautions given some concern for the possibility of TB. Plan/VTE VTE Prophylaxis Ordered?: No VTE Exclusion Mechanical Proph: Low Risk for VTE Plan - ID is on board - appreciate recs - continue broad-spectrum antibiotics - f/u culture results from aspiration today - will follow along Subjective Review oF Systems Chief Complaint Right Renal Abscess Events since Last Encounter No acute events o/n. Spiked a fever to 101.7 this morning. Patient just got back to the floor from IR, where he underwent drainage of about 2mL of purulent fluid. He notes his pain is worse since undergoing drainage. He has no voiding complaints. Objective Physical Examination General Exam: : Alert: Cooperative: No Acute Distress ABDOMEN EXAM: : SoftNo: Tenderness Skin Exam: : Nl turgor and temperature Psych Exam: : Mental status NL: Mood NL Other physical findings right CVA tenderness unchanged Vital Signs/I&O Vital Signs Date Time Temp Pulse Resp B/P Pulse Ox O2 Delivery O2 Flow Rate FiO2 04/16/16 17:12 20 Room Air 04/16/16 12:00 97.5 87 112/70 94 I&O- Last 24 Hours up to 6 AM 04/16/16 06:00 Intake Total 1430 ml Output Total 1000 ml Balance 430 ml Laboratory Data Labs 24H Laboratory Tests 2 04/16/16 07:07: C-Reactive Protein, Quantitative 11.50H, Erythrocyte Sedimentation Rate 67H 04/16/16 07:08: Anion Gap 8, Blood Urea Nitrogen 6L, Creatinine 0.85, Sodium Level 142, Potassium Level 3.9, Chloride Level 106, Carbon Dioxide Level 28, Calcium Level 8.5, Glomerular Filtration Rate > 60.0 04/16/16 08:18: CBC/BMP Laboratory Tests 04/16/16 07:08 Calcium Level 8.5, Red Blood Count 4.48, Mean Corpuscular Volume 88.7, Mean Corpuscular Hemoglobin 30.4, Mean Corpuscular Hemoglobin Concent 34.2, Red Cell Distribution Width 12.1 Microbiology Microbiology 04/13/16 Blood Culture - Preliminary, Resulted No Growth after 48 hours. All Specime... 04/13/16 Blood Culture - Preliminary, Resulted No Growth after 48 hours. All Specime... 04/12/16 Blood Culture - Preliminary, Resulted No Growth after 72 hours. All specime... 04/12/16 Blood Culture - Preliminary, Resulted No Growth after 72 hours. All specime... 04/13/16 Gram Stain - Final, Complete 04/13/16 Sputum Culture - Final, Complete Yeast Like Organism 04/12/16 Influenza Virus Type A Antigen - Final, Complete 04/12/16 Influenza Virus Type B Antigen - Final, Complete 04/16/16 Fungal Smear, Received Pending 04/16/16 Fungal Culture, Received Pending 04/16/16 Anaerobic Culture, Received Pending 04/12/16 Urine Culture - Final, Complete 04/16/16 Acid Fast Stain, Received Pending 04/16/16 Mycobacterial Culture, Received Pending 04/16/16 Gram Stain, Received Pending 04/16/16 Abscess Culture, Received Pending VICKI GRAY MD Apr 16, 2016 17:44
--- NOTE | 2016-04-16 17:50 | REPKIM ---
CLINICAL HISTORY: Patient with a history of TB exposure in the past presents with a right renal phlegmon/mass as documented by the recent cross sectional images, fever and pain. The referring service has asked a diagnostic aspiration/ biopsy/intervention of the renal mass/phlegmon. PROCEDURE PERFORMED: 1. Ultrasound of the right kidney 2. Renal phlegmon/mass biopsy and aspiration INTERVENTIONALIST: Drew Yu MD CONSENT: The risks, benefits and alternatives to the procedure were explained to the patient and informed written consent was obtained. MEDICATIONS: Local Lidocaine EBL: less than 5mL PROCEDURE: The patient was brought to the interventional radiology suite where a timeout procedure was performed. The patient was placed in the prone position. The right flank was prepped and draped in a sterile fashion. Ultrasound showed a 4-5 cm complex mass/phlegmon containing a central 2cm anechoic or fluid in the mid to upper pole right kidney. Local anesthetic was established using 2% Lidocaine. Using ultrasound guidance, a 17 gauge introducer needle was introduced into the complex mass/phlegmon of the right kidney, after infiltration of the skin and deep tissues with local anesthetic. Using coaxial technique, three passes were made using an 18-gague biopsy device. The specimens sent to pathology. The introducer needle tip was then positioned in the central anechoic region. Approximately 2 mL of purulent discharge was aspirated. The fluid sample sent for c/s; aerobic, anaerobic, fungal and TB. The cavity was too small to place a drainage catheter. The needle was removed. A sterile dressing was applied. The patient tolerated the procedure well with no immediate complications. This procedure was performed using ultrasound. Dr. Yu was present. IMPRESSION: 4.5 cm mass/phlegmon containing 2cm anechoic (fluid) region centrally involving the mid to upper pole right kidney. Successful diagnostic biopsy and aspiration as discussed above. The specimens and fluid sent for pathology and micb laboratory evaluation. Findings discussed via phone with Dr. Santillan at the completion of this study. cc: DO Roman Gonzalez MD Marylene J Duah, MD [facility] MEDICAL CENTERDevan
[2016-04-17] VITALS (7 sets, daily range): BP systolic 111–126; BP diastolic 54–73
[2016-04-17] MEDS: cefTRIAXone SOD 2 GM in D5W MINI-BAG PLUS 50 ML IV SCH (01:40)
[2016-04-17] MEDS: ACETAMINOPHEN TAB 650MG DOSE (2X325MG) PO PRN ×2 (01:40→21:51)
[2016-04-17] MEDS ORDERED: IBUPROFEN 400 MG TAB PO ONE (03:45)
[2016-04-17] MEDS: NORCO, ANEXSIA 5/325MG TABLET (HYDROcodone/ACETAMINOPHEN) PO PRN ×3 (04:07→20:17)
[2016-04-17 05:00] LABS: MEAN CORPUSCULAR HEMOGLOBIN 30.6 pg (27.0-33.0); MEAN CORPUSCULAR HGB CONC 34.4 g/dl (32.0-36.5); MEAN CORPUSCULAR VOLUME 88.9 fl (80.0-96.0); WHITE BLOOD COUNT 11.2 K/mm3 (4.0-10.0)
[2016-04-17 05:21] LABS: ANION GAP 8 MEQ/L (8-16); BLOOD UREA NITROGEN 6 MG/DL (7-18); CALCIUM LEVEL 8.1 MG/DL (8.5-10.1); CARBON DIOXIDE LEVEL 27 MEQ/L (21-32); CHLORIDE LEVEL 104 MEQ/L (98-107); GLOMERULAR FILTRATION RATE > 60.0 (>60); GLUCOSE, FASTING 142 MG/DL (70-105); POTASSIUM SERUM 3.7 MEQ/L (3.5-5.1); SODIUM LEVEL 139 MEQ/L (136-145)
[2016-04-17] MEDS: CODEINE SULFATE 30 MG TAB PO PRN ×2 (08:45→22:36)
[2016-04-17] MEDS: PERCOCET 5MG/325MG TAB PO PRN ×2 (08:46→17:09)
[2016-04-17] MEDS: NS 1,000 ML IV SCH ×3 (10:15→22:34)
[2016-04-17] MEDS: KETOROLAC 30 MG/ML VIAL (J1885) IV PRN ×2 (11:29→22:35)
[2016-04-17] MEDS: BENZONATATE 100 MG CAP PO PRN ×2 (11:29→18:51)
--- NOTE | 2016-04-17 11:30 | PHACANCOPD ---
PHARMACY VANCOMYCIN DOSING Pt Demographics Demographics Patient Age:35 , Weight:87.040 , Gender: male Adjusted Body Weight Date: 04/17/16, Adjusted Body Weight: [89.65] Kg Events Past 24 Hours Events Past 24 Hours: NO: Change in CrCl, Dialysis, Diuretic Therapy, Elevation in WBC, Fever, Other, Pending Diagnostics, Pending Procedures Vancomycin Vancomycin indication: MRSA KIDNEY ABSCESS Vancomycin Target Ranges: 15-20 mcg/ml Vancomycin Load Y/N: Yes Load Dose Date Time Vancomycin Load Dose: 1.75G Date: 04/17/16 Time: 1200 Vancomycin Dose Date: 04/17/16. Current Vancomycin Dose: [1G Q8H STARTING @1999] Intermittent Dosing?: No Labs Labs Vital Signs Label Value Date Time Patient Temperature 100.1 degrees F 04/15/16 0400 Temperature Source Tympanic 04/15/16 0400 Patient Temperature 100.8 degrees F 04/16/16 1650 Temperature Source Tympanic 04/16/16 1650 Patient Temperature 96.6 degrees F 04/17/16 0800 Temperature Source Tympanic 04/17/16 0800 Patient Temperature 104.2 degrees F 04/17/16 0323 Temperature Source Tympanic 04/17/16 0323 Item Value Date Time White Blood Count 12.4 K/mm3 H 04/16/16 0708 White Blood Count 11.2 K/mm3 H 04/17/16 0437 White Blood Count 9.8 K/mm3 04/15/16 0627 Creatinine 0.85 MG/DL 04/16/16 0708 Creatinine 0.90 MG/DL 04/17/16 0437 Micro Microbiology 04/17/16 Blood Culture, Received Pending 04/17/16 Blood Culture, Received Pending 04/13/16 Blood Culture - Preliminary, Resulted No Growth after 72 hours. All specime... 04/13/16 Blood Culture - Preliminary, Resulted No Growth after 72 hours. All specime... 04/12/16 Blood Culture - Preliminary, Resulted No Growth after 72 hours. All specime... 04/12/16 Blood Culture - Preliminary, Resulted No Growth after 72 hours. All specime... 04/17/16 Gram Stain - Final, Resulted 04/17/16 Sputum Culture, Resulted Pending 04/13/16 Gram Stain - Final, Complete 04/13/16 Sputum Culture - Final, Complete Yeast Like Organism 04/12/16 Influenza Virus Type A Antigen - Final, Complete 04/12/16 Influenza Virus Type B Antigen - Final, Complete 04/17/16 Urine Culture, Received Pending 04/16/16 Fungal Smear, Received Pending 04/16/16 Fungal Culture, Received Pending 04/16/16 Anaerobic Culture, Received Pending 04/12/16 Urine Culture - Final, Complete 04/16/16 Acid Fast Stain, Received Pending 04/16/16 Mycobacterial Culture, Received Pending 04/16/16 Gram Stain - Final, Resulted 04/16/16 Abscess Culture, Resulted Pending Creatinine Clearance Date:04/17/16. Creatinine Clearance: . Pending Labs SPUTUM, BLOOD, AND URINE Assessment and Plan Maintaining Current Dose?: Yes Reason for dose change: No Dose Change Pharmacist Note Pharmacist Note Date: 04/17/16. Pharmacist note: Pt is a 35 Y/O male being treated for MRSA Kidney abscess with no history of vancomycin treatment. Temp. and WBCs have been elevated. Blood, urine, and sputum cultures are pending. Pt target range is 15-20mcg/ml so a 1.75g loading dose was given at 1200 and maintenance therapy will begin at 2000 with 1g q8h. We will continue to monitor and adjust dose as needed. [facility] Apr 17, 2016 11:30
[2016-04-17] MEDS ORDERED: VANCOMYCIN HCL 1,000 MG, VIAL MATE ADAPTER 1 EACH in D5W 250 ML IV ONE (12:00)
[2016-04-17] MEDS ORDERED: VANCOMYCIN HCL 750 MG, VIAL MATE ADAPTER 1 EACH in D5W 250 ML IV ONE (13:00)
--- NOTE | 2016-04-17 14:25 | IPN ---
DATE: 04/17/2016 Mr. Deleon is feeling a little better today. He had a fever up to 104.2 last night. He still has a cough which is mostly nonproductive and when he coughs he has a headache. He has no nausea or vomiting. He complains of right-sided flank pain. No trouble urinating. The patient on review of history states he has had methicillin-resistant Staphylococcus aureus (MRSA) boils for over 10 years, the most recent one was around when he had a tattoo and that got infected. He did not have associated fever or chills. Him and his girlfriend just cleaned it out and popped the zit, it was not very large. LABORATORY DATA: White count is 11.2, hemoglobin 13.2, hematocrit 38.3, platelets 282. Sed rate 67. Sodium 139, potassium 3.7, chloride 104, bicarb 27, BUN 6, creatinine 0.9, glucose 142, lactic acid 1.6, calcium 8.1. Lactic acid on 04/13/2016 was 2.3. Urine culture is pending. Gram stain from intraoperative specimen has many white cells, many red cells and many gram positive cocci in clusters. I did review the slide with microbiology. Urine culture from 04/12/2016 was read as no growth of clinical significance, one organism, and there were three colonies of Staph that were present. IMPRESSION: 1. Renal abscess from Staph aureus. The patient has previous history of MRSA boils and therefore my suspicion is this will be MRSA. The patient started with a boil on his left biceps around . It could have been the source that seeded his kidney, which is kind of unusual for somebody that healthy. 2. History of latent tuberculosis, treated with isoniazid for 9 months in 2002. This is not reactivation of TB. Continue airborne isolation. 3. Recurrent boils with MRSA. Currently no evidence of infection. PLAN: Discontinue IV Rocephin. Start IV vancomycin 1 gram every 8 hours. Continue with contact isolation for MRSA. Case has been discussed with Dr. Santillan regarding surgical removal of the abscess versus IV antibiotic and he stated that usually an abscess measuring between 3 and 5 cm should be percutaneously drained, but the concern is that they were not able to aspirate too much of that abscess, only 2 mL, and therefore it was not fully drained. The patient will be treated with IV antibiotics for the next 48-72 hours. If he continues to be febrile, then surgical intervention may be needed.
--- NOTE | 2016-04-17 15:09 | CR ---
DATE OF CONSULTATION: 04/16/2016 The patient was seen at 05:00 p.m. 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 The patient reports this illness started sometime around when he had a tattoo over the left arm and developed an infection of the tattoo. The patient has a known history of recurrent MRSA infections. Not very frequent but he has had at least four different boils at different locations that he all related to spider bites. A couple of them needed drainage on his thigh and upper thigh and left mid thigh, but this one on his left upper arm did not need drainage. He did not get medical attention for it. He took care of it himself with his girlfriend and squeezed the pus out of it. He did not have any associated fever or chills. The patient stated then he developed some right-sided flank pain and initially he thought it was of muscular origin but then started developing a cough and worsening headache with his cough. The pain was mostly in his right flank area radiation to his right buttock. He was also having some fever, chills and night sweats. Even though the fevers were not regular intermittently he would have drenching night sweats. His cough was productive also of brownish phlegm. He was complaining of some tingling of both fingers. He was seen in an emergency room in [facility] where he was visiting his girlfriend's family. He was diagnosed with bronchitis and was given Zithromax. He received 3 days of Zithromax, persisted with the same symptoms and therefore came to our emergency room on April 09 were he was diagnosed with a low back pain strain and not bronchitis. Labs done on April 07 white count was 10.80. ESR was 30. Sodium 143, potassium 4.3, chloride 106, bicarb 27. Liver profile was normal. Vitamin D was low as 14.5, TSH 1.26. Rheumatoid factor and CAMILLE were negative. April 13 the patient presents back to the emergency room with worsening flank pain. CT scan was done in the emergency room which was suggestive of 3.5 cm kidney hypodense lesion, which was suggestive of an abscess, multifocal versus a mass. The patient was admitted to hospital. Blood cultures and urine cultures were non revealing. He was started on IV Rocephin which did not help with his symptoms. He remained febrile. Continued with significant flank pain and therefore he was taken to interventional radiology this afternoon for drainage of abscess. Dr. Julisa Yu was not able to drain too much of the abscess has a was loculated. He was able to aspirate about 2 mL of purulent discharge that was sent for aerobic, anaerobic, fungal and TB cultures. The cavity was too small to place a drainage catheter. PAST MEDICAL HISTORY: His past medical history significant for latent tuberculosis infection diagnosed in 2002 after his return from [facility]. A second deployment to [place] caused traumatic brain injury with very stressful year of trauma. He states he had a chronic cough from his TBI. Workup of his chronic cough included a bronchoscopy in [address] Pierce. AP fungal smear and culture were all negative. CT of the chest at that point was negative. In November of 2015 the patient had an abscess of the left upper leg which was positive for MRSA. The patient has chronic headaches for which he follows with Dr. Staton and recently had MRI and MRA, but he does not have those results. PAST SURGICAL HISTORY: Appendectomy. FAMILY HISTORY: He does not have any kids. He is with his girlfriend. They are planning to get soon. SOCIAL HISTORY: He drinks twice a month. Denies recreational drug use. REVIEW OF SYSTEMS: He has had fever or chills, night sweats. He has had weight gain but 20 pounds. He has headaches, especially when he coughs but he has chronic headaches for which he follows up with Dr. Sarmiento. He denies any chest pain or palpitation. He has had a cough which is productive and severe flank pain. No nausea or vomiting. No diarrhea. No joint swelling. PHYSICAL EXAMINATION: On physical exam he is a sick looking gentleman in no acute distress. Temperature 101.4, pulse 96, respirations 18, blood pressure 140/89, O2 sat 96% on room air. HEART: Normal S1-S2. No murmurs, rubs or gallops. LUNGS: Are clear. No wheezes or rhonchi. ABDOMEN: Soft, mildly tender in the right lower quadrant. No hepatosplenomegaly. . BACK: Mild right CVA tenderness. EXTREMITIES: No clubbing, cyanosis or edema. No rashes. Few scars that are healed from previous MRSA abscess of the right upper hip area and left thigh area. All healed tattoos on the chest and left arm. No infection. ENT: Oropharynx clear with no lesions. No thrush. LABORATORY DATA: White count is 12.4, hemoglobin 13.6, hematocrit 39.7, platelets 271. Sed rate 67. White count on admission was 13.9, sodium 142, potassium 3.9, chloride 106, bicarb 28, BUN six, creatinine 0.85, glucose 103, calcium 8.5, CRP 11.52. Tumor marker HCG less than 1. Urinalysis had +2 leukocyte esterase, 43 white cells. Rheumatoid factor was less than 10. CAMILLE negative. UNCA was less than 1 in 20. Glomerular basement membrane antibody was 4, negative. Two sets of blood cultures were no growth after 72 hours. Influenza A and B were negative. Urine culture was no growth of clinical significance. There was only one organism. It was three colonies of staph. IMPRESSION: This is a 35-year-old gentleman who has a history of latent tuberculosis treated with isoniazid for 9 months over 13 years ago who presents with flank pain, fever, cough and headache. Seems like the cough is probably caused by irritation from the phrenic nerve from the renal abscess. The concern is whether this is bacterial versus tuberculous versus fungal. The patient has a previous history of MRSA, although this is not typical for a young gentleman to have MRSA abscess. TB of the tract is also in the differential and therefore the patient has been kept on isolation. Fungal infection is also a concern. PLAN: At this point will continue with IV Rocephin pending results of aspiration and then will decide on further antibiotic. Continued airborne isolation as well as contact isolation for previous history of MRSA and minute possibility that this could be tuberculous infection of the tract. Will review CT findings with Dr. Mckay in the morning and results of gram stain and depending on results will decide on further management. End The patient has signed a release to get his records from Dr. Staton and results of his MRI, MRA as well as the emergency room visit in [place]. Thank you for the consult.
--- NOTE | 2016-04-17 16:22 | IPNPDOC ---
Date of Service/Time Apr 17, 2016 Progress Note SUBJECTIVE: Patient is a 35-year-old male with suspected phlegmon of right kidney. Patient was examined at beside and was found sleeping in bed at 0 degrees. Patient is status post ultrasound guided needle biopsy/aspirate of right kidney. Patient had a fever overnight of 104.2, the highest fever since admission. Admits to still having headache and back pain at the site of aspirate needle insertion. Patient reports cough has reduced in frequency. His girlfriend brought him doughnuts yesterday and he was able to tolerate eating them. Denies chest pain, shortness of breath, nausea, vomiting, diarrhea, hematuria. OBJECTIVE: PHYSICAL EXAMINATION: GENERAL: NAD.A&Ox3. HEENT: Normocephalic, atraumatic. CARDIOVASCULAR: RRR. Normal S1 and S2. No murmurs, rubs or gallops. RESPIRATORY: Clear to auscultation. No rales, rhonchi or wheezes. ABDOMINAL: Soft, non-tender. No ecchymosis, peritoneal signs, or masses. Normoactive bowel sounds. EXTREMITIES: No cyanosis, pallor or edema. IMAGING: Ultrasound guided needle aspiration of right kidney. DVT prophylaxis ordered?: No, he does not have risk factors. ASSESSMENT AND PLAN: This is a 35-year-old male with suspected phlegmon of right kidney. PROBLEMS: 1. Renal Phlegmon. Suspect Infectious etiology, however, neoplasm remains in the differential. An ultrasound guided needle aspiration/biopsy was performed yesterday by Dr. Yu. 2 mL of yellow/green fluid was aspirated from the right kidney. Cultures and pathology of aspirated fluid are still pending. Patient had a fever overnight of 104.2. This is possibly a sequelae of the procedure. Tumor marker HCG came back negative, AFP is still pending. Quantiferon Gold test is still pending for TB. Patient will remain on contact isolation until tuberculosis can be ruled out. White count was 11.2 today, down from 12.4 yesterday. Will continue with IV antibiotics. 2. Cough. Tylenol with codeine has given patient some relief. Sputum cultures pending. 3. Genital Ulcers. Lesions seem to be healing. HIV, Chlamydia, Syphilis, Gonorrhea and HSV negative. 4. Lung Nodule. Follow up CT in three months. VS, I&O, 24H, Fishbone VS, I&O, 24H, [facility] Vital Signs Date Time Temp Pulse Resp B/P Pulse Ox O2 Delivery O2 Flow Rate FiO2 04/17/16 08:46 18 Room Air 04/17/16 05:00 98.7 88 112/65 95 I&O- Last 24 Hours up to 6 AM 04/17/16 06:00 Intake Total 2990 ml Output Total 1870 ml Balance 1120 ml Laboratory Tests 2 04/17/16 04:37: Anion Gap 8, Blood Urea Nitrogen 6L, Creatinine 0.90, Sodium Level 139, Potassium Level 3.7, Chloride Level 104, Carbon Dioxide Level 27, Calcium Level 8.1L, Glomerular Filtration Rate > 60.0, Lactic Acid Level 1.6 Laboratory Tests 04/17/16 04:37 Calcium Level 8.1 L, Red Blood Count 4.31, Mean Corpuscular Volume 88.9, Mean Corpuscular Hemoglobin 30.6, Mean Corpuscular Hemoglobin Concent 34.4, Red Cell Distribution Width 12.0 Microbiology 04/17/16 Blood Culture, Received Pending 04/17/16 Blood Culture, Received Pending 04/13/16 Blood Culture - Preliminary, Resulted No Growth after 72 hours. All specime... 04/13/16 Blood Culture - Preliminary, Resulted No Growth after 72 hours. All specime... 04/12/16 Blood Culture - Preliminary, Resulted No Growth after 72 hours. All specime... 04/12/16 Blood Culture - Preliminary, Resulted No Growth after 72 hours. All specime... 04/17/16 Gram Stain, Received Pending 04/17/16 Sputum Culture, Received Pending 04/13/16 Gram Stain - Final, Complete 04/13/16 Sputum Culture - Final, Complete Yeast Like Organism 04/12/16 Influenza Virus Type A Antigen - Final, Complete 04/12/16 Influenza Virus Type B Antigen - Final, Complete 04/17/16 Urine Culture, Received Pending 04/16/16 Fungal Smear, Received Pending 04/16/16 Fungal Culture, Received Pending 04/16/16 Anaerobic Culture, Received Pending 04/12/16 Urine Culture - Final, Complete 04/16/16 Acid Fast Stain, Received Pending 04/16/16 Mycobacterial Culture, Received Pending 04/16/16 Gram Stain, Received Pending 04/16/16 Abscess Culture, Received Pending ALENA CONCEPCION DO Apr 17, 2016 09:45
[2016-04-17] MEDS: VANCOMYCIN HCL 1,000 MG, VIAL MATE ADAPTER 1 EACH in D5W 250 ML IV SCH (20:00)
[2016-04-18 01:30] VITALS: BP 122/74
[2016-04-18 04:00] VITALS: BP 119/83
[2016-04-18] MEDS: VANCOMYCIN HCL 1,000 MG, VIAL MATE ADAPTER 1 EACH in D5W 250 ML IV SCH ×2 (04:41→12:21)
[2016-04-18] MEDS: KETOROLAC 30 MG/ML VIAL (J1885) IV PRN ×2 (04:51→09:23)
[2016-04-18 06:57] LABS: MEAN CORPUSCULAR HEMOGLOBIN 30.5 pg (27.0-33.0); MEAN CORPUSCULAR HGB CONC 34.1 g/dl (32.0-36.5); MEAN CORPUSCULAR VOLUME 89.4 fl (80.0-96.0); RED CELL DISTRIBUTION WIDTH 12.1 % (11.5-14.5); WHITE BLOOD COUNT 6.8 K/mm3 (4.0-10.0)
[2016-04-18 07:25] LABS: ANION GAP 7 MEQ/L (8-16); BLOOD UREA NITROGEN 5 MG/DL (7-18); CALCIUM LEVEL 8.1 MG/DL (8.5-10.1); CARBON DIOXIDE LEVEL 29 MEQ/L (21-32); CHLORIDE LEVEL 107 MEQ/L (98-107); CREATININE FOR GFR 0.74 MG/DL (0.70-1.30); GLOMERULAR FILTRATION RATE > 60.0 (>60); GLUCOSE, FASTING 106 MG/DL (70-105); POTASSIUM SERUM 4.1 MEQ/L (3.5-5.1); SODIUM LEVEL 143 MEQ/L (136-145)
[2016-04-18 08:00] VITALS: BP 116/79
[2016-04-18] MEDS: NS 1,000 ML IV SCH ×2 (09:23→19:56)
[2016-04-18] MEDS: BENZONATATE 100 MG CAP PO PRN (10:19)
[2016-04-18 12:00] VITALS: BP 128/83
--- NOTE | 2016-04-18 12:11 | PHACANCOPD ---
PHARMACY VANCOMYCIN DOSING Pt Demographics Demographics Patient Age:35 , Weight:87.954 , Gender: male Adjusted Body Weight Date: 04/17/16, Adjusted Body Weight: [89.65] Kg Vancomycin Vancomycin indication: MRSA KIDNEY ABSCESS Vancomycin Target Ranges: 15-20 mcg/ml Vancomycin Load Y/N: Yes Load Dose Date Time Vancomycin Load Dose: 1.75G Date: 04/17/16 Time: 1200 Vancomycin Dose Date: 04/17/16. Current Vancomycin Dose: [1G Q8H STARTING @1999] Intermittent Dosing?: No Labs Micro Microbiology 04/17/16 Blood Culture - Preliminary, Resulted No growth after 24 hours . All specim... 04/17/16 Blood Culture - Preliminary, Resulted No growth after 24 hours . All specim... 04/13/16 Blood Culture - Preliminary, Resulted No Growth after 72 hours. All specime... 04/13/16 Blood Culture - Preliminary, Resulted No Growth after 72 hours. All specime... 04/12/16 Blood Culture - Final, Complete NO GROWTH AFTER 5 DAYS 04/12/16 Blood Culture - Final, Complete NO GROWTH AFTER 5 DAYS 04/17/16 Gram Stain - Final, Resulted 04/17/16 Sputum Culture, Resulted Pending 04/13/16 Gram Stain - Final, Complete 04/13/16 Sputum Culture - Final, Complete Yeast Like Organism 04/12/16 Influenza Virus Type A Antigen - Final, Complete 04/12/16 Influenza Virus Type B Antigen - Final, Complete 04/17/16 Urine Culture - Final, Complete 04/16/16 Fungal Smear, Received Pending 04/16/16 Fungal Culture, Received Pending 04/16/16 Anaerobic Culture - Final, Complete 04/12/16 Urine Culture - Final, Complete 04/16/16 Acid Fast Stain, Received Pending 04/16/16 Mycobacterial Culture, Received Pending 04/16/16 Gram Stain - Final, Complete 04/16/16 Abscess Culture - Final, Complete Staph.aureus Methicillin Resis Creatinine Clearance Date:04/17/16. Creatinine Clearance: . Pending Labs SPUTUM, BLOOD, AND URINE Assessment and Plan Maintaining Current Dose?: No Reason for dose change: Trough too low Pharmacist Note Pharmacist Note 04/18/16: Trough today resulted at 9.7 mcg/ml. I will give a 2g loading dose today @1200, and increase the patient's maintenance regimen to 1500mg IV Q8H starting @1999 - aiming for a goal trough of 15-20 mcg/ml. WBC is currently WNL , but patient febrile within past 24 hours. Urine and blood cultures no growth, and sputum culture is still pending. Scr remains stable. A follow-up trough has been scheduled for 04/19/16 @ 1100. We will continue to monitor and make further dose adjustments as needed. Date: 04/17/16. Pharmacist note: Pt is a 35 Y/O male being treated for MRSA Kidney abscess with no history of vancomycin treatment. Temp. and WBCs have been elevated. Blood, urine, and sputum cultures are pending. Pt target range is 15-20mcg/ml so a 1.75g loading dose was given at 1200 and maintenance therapy will begin at 1999 with 1g q8h. We will continue to monitor and adjust dose as needed. ALEKSANDRA COLEMAN PHARMACY Apr 18, 2016 12:11
[2016-04-18] MEDS ORDERED: VANCOMYCIN HCL 1,000 MG, VIAL MATE ADAPTER 1 EACH in D5W 250 ML IV ONE (13:00)
[2016-04-18] MEDS: CODEINE SULFATE 30 MG TAB PO PRN ×2 (15:21→19:57)
[2016-04-18] MEDS: traMADol 50 MG TAB PO PRN ×2 (15:22→19:56)
[2016-04-18 16:00] VITALS: BP 120/71
--- NOTE | 2016-04-18 16:05 | IPNPDOC ---
Date/Time Seen The patient was seen on 04/18/16 at 15:56. Progress Note SUBJECTIVE: Mr Deleon is in good spirits this morning. He is accompanied in the room by his girlfriend. He does continue to complain of right flank pain, albeit it appears that it may be improving slightly. He is willing to attempt to start weaning off of narcotics. He didn't spike another fever last night, he states that he soaked the bed sheets completely, although his Tmax was 101.8 which is improved from the previous few nights. He does continue to suffer from his chronic cough, which has not significantly improved. Otherwise, he denies any chest pain/discomfort, palpitations, nausea, vomiting, diarrhea, constipation. OBJECTIVE: PHYSICAL EXAMINATION: GENERAL: NAD.A&Ox3. HEENT: Normocephalic, atraumatic. CARDIOVASCULAR: RRR. Normal S1 and S2. No murmurs, rubs or gallops. RESPIRATORY: Clear to auscultation. No rales, rhonchi or wheezes. ABDOMINAL: Soft, non-tender. No ecchymosis, peritoneal signs, or masses. Normoactive bowel sounds. Bandage in place from his biopsy and aspiration, it appears to be clean and dry. EXTREMITIES: No cyanosis, pallor or edema. DVT prophylaxis ordered?: No, he does not have risk factors. Ambulation was encouraged ASSESSMENT AND PLAN: This is a 35-year-old male with phlegmon and abscess of right kidney. PROBLEMS: 1. Renal Phlegmon. MRSA grown out of the purulent material that was aspirated from his renal abscess. Vancomycin was already starting yesterday, and he is seen a significant improvement in his white count. He did spike another fever last night, and he continues to have significant right-sided flank pain. Transthoracic Echocardiogram negative for endocarditis. Pathology from his biopsy is still pending. Tumor markers for AFP and beta-hCG have resulted and are negative. 2. Cough. Tylenol with codeine has given patient some relief. Sputum cultures pending. 3. Genital Ulcers. Lesions seem to be healing. HIV, Chlamydia, Syphilis, Gonorrhea and HSV negative. 4. Lung Nodule. Follow up CT in three months. VS, I&O, 24H, Fishbone VS, I&O, 24H, Fishbone Vital Signs Date Time Temp Pulse Resp B/P Pulse Ox O2 Delivery O2 Flow Rate FiO2 04/18/16 15:22 18 Room Air 04/18/16 12:00 98.9 71 128/83 98 I&O- Last 24 Hours up to 6 AM 04/18/16 06:00 Intake Total 4250 ml Output Total 2400 ml Balance 1850 ml Laboratory Tests 2 04/18/16 06:40: Anion Gap 7L, Blood Urea Nitrogen 5L, Creatinine 0.74, Sodium Level 143, Potassium Level 4.1, Chloride Level 107, Carbon Dioxide Level 29, Calcium Level 8.1L, Glomerular Filtration Rate > 60.0 04/18/16 10:54: Vancomycin Level Trough 9.7L Laboratory Tests 04/18/16 06:40 Calcium Level 8.1 L, Red Blood Count 4.49, Mean Corpuscular Volume 89.4, Mean Corpuscular Hemoglobin 30.5, Mean Corpuscular Hemoglobin Concent 34.1, Red Cell Distribution Width 12.1 Microbiology 04/17/16 Blood Culture - Preliminary, Resulted No growth after 24 hours . All specim... 04/17/16 Blood Culture - Preliminary, Resulted No growth after 24 hours . All specim... 04/13/16 Blood Culture - Preliminary, Resulted No Growth after 72 hours. All specime... 04/13/16 Blood Culture - Preliminary, Resulted No Growth after 72 hours. All specime... 04/12/16 Blood Culture - Final, Complete NO GROWTH AFTER 5 DAYS 04/12/16 Blood Culture - Final, Complete NO GROWTH AFTER 5 DAYS 04/17/16 Gram Stain - Final, Resulted 04/17/16 Sputum Culture, Resulted Pending 04/13/16 Gram Stain - Final, Complete 04/13/16 Sputum Culture - Final, Complete Yeast Like Organism 04/12/16 Influenza Virus Type A Antigen - Final, Complete 04/12/16 Influenza Virus Type B Antigen - Final, Complete 04/17/16 Urine Culture - Final, Complete 04/16/16 Fungal Smear, Received Pending 04/16/16 Fungal Culture, Received Pending 04/16/16 Anaerobic Culture - Final, Complete 04/12/16 Urine Culture - Final, Complete 04/16/16 Acid Fast Stain, Received Pending 04/16/16 Mycobacterial Culture, Received Pending 04/16/16 Gram Stain - Final, Complete 1/12/17 Abscess Culture - Final, Complete Staph.aureus Methicillin Resis ALENA CONCEPCION DO Apr 18, 2016 16:05
[2016-04-18] MEDS: VANCOMYCIN HCL PEDIATRIC 1,500 MG in D5W 500 ML IV SCH (19:56)
[2016-04-18 20:00] VITALS: BP 123/76
[2016-04-19] VITALS: BP 119/75
[2016-04-19 04:00] VITALS: BP 128/71
[2016-04-19] MEDS: VANCOMYCIN HCL PEDIATRIC 1,500 MG in D5W 500 ML IV SCH ×3 (04:00→20:08)
[2016-04-19] MEDS: NS 1,000 ML IV SCH ×3 (04:12→20:19)
[2016-04-19 06:54] LABS: MEAN CORPUSCULAR HEMOGLOBIN 30.6 pg (27.0-33.0); MEAN CORPUSCULAR HGB CONC 34.4 g/dl (32.0-36.5); MEAN CORPUSCULAR VOLUME 88.8 fl (80.0-96.0); RED CELL DISTRIBUTION WIDTH 11.9 % (11.5-14.5); WHITE BLOOD COUNT 7.8 K/mm3 (4.0-10.0)
[2016-04-19 07:15] LABS: ANION GAP 7 MEQ/L (8-16); BLOOD UREA NITROGEN 5 MG/DL (7-18); CALCIUM LEVEL 8.6 MG/DL (8.5-10.1); CARBON DIOXIDE LEVEL 29 MEQ/L (21-32); CHLORIDE LEVEL 104 MEQ/L (98-107); GLOMERULAR FILTRATION RATE > 60.0 (>60); GLUCOSE, FASTING 113 MG/DL (70-105); POTASSIUM SERUM 3.8 MEQ/L (3.5-5.1); SODIUM LEVEL 140 MEQ/L (136-145)
--- NOTE | 2016-04-19 07:53 | IPNPDOC ---
Assessment/Plan Date Seen The patient was seen on 04/19/16. Problems Problems: (1) Renal abscess Status: Acute Response to Treatment: Improving Discussed With: Patient Problem Specific Plan: Consult Specialist, Monitor Clinically, Repeat Labs Problem Text: Continue with vancomycin for now. Renal abscess cultures +MRSA. Patient does have history of recurrent MRSA infections. Leukocytosis resolved. Biopsy results pending. Follow as per ID, assistance appreciated. (2) Latent tuberculosis Status: Chronic Response to Treatment: Progressing Discussed With: Patient Problem Specific Plan: Consult Specialist, Monitor Clinically Problem Text: S/P Isoniazid therapy 2002. Still with chronic cough, night sweats. Recent workup 2014 including BAL negative for TB. (3) Male genital ulcer Status: Chronic Response to Treatment: Improving Problem Specific Plan: Monitor Clinically (4) TBI (traumatic brain injury) Status: Chronic Response to Treatment: Progressing Discussed With: Patient Problem Specific Plan: Monitor Clinically Problem Text: Follows with Dr. Staton. Still complains of headaches, but does appear to be at his baseline. Continue to wean narcotics. (5) Lung nodule seen on imaging study Status: Acute Discussed With: Patient Problem Text: Repeat CT in 3 months. Plan / VTE VTE Prophylaxis Ordered?: No VTE Exclusion Mechanical Proph: Low Risk for VTE Plan Diet: Continue Current Activity: Continue Current Diagnostics: Repeat Labs in AM Anticipated Discharge: Home Subjective Review of Systems CC/HPI The patient is a 35-year-old male admitted with a reason for visit of Pyelonephritis,Acute. General: Denies: Chills, Fatigue, Malaise, Night Sweats, Normal Appetite, Other Symptoms, ROS Unobtainable Constitutional: Reports: Chills, Night Sweats, Denies: Fatigue, Fever, Lethargy, Malaise, Other, Weakness, Weight Loss Eyes: Denies: Conjunctivae inflammation, Eyelid inflammation, Other, Pain, Redness, Vision change ENT: Reports: Head Aches, Denies: Dysphagia, Ear Pain, Epistaxis, Other Symptoms, Post Nasal Drip, Sinus Congestion, Sore Throat Skin: Denies: Breakdown, Bruising, Dry, Itching, Jaundice, Lesions, Nail Changes, Other, Rash Pulmonary: Denies: Cough, Dyspnea, Other Symptoms, Pleuritic Chest Pain Cardiovascular: Denies: Chest Pain, Edema, Lt Headedness, Orthopnea, Other Symptoms, Palpitations, Paroxysmal Noc. Dyspnea Gastrointestinal: Reports: Abdominal Pain, Denies: Constipation, Diarrhea, Hematochezia, Melena, Nausea, Other Symptoms , Vomiting Genitourinary: Denies: Dysuria, Frequency, Hematuria, Incontinence, Other Symptoms, Retention Objective Physical Examination General Exam: Positive: Alert, Cooperative, No Acute Distress Eye Exam: Positive: Conjunctiva & lids normal, EOMI, PERRLA ENT Exam: Positive: Atraumatic Neck Exam: Positive: Supple Chest Exam: Positive: Clear to auscultation, Normal air movement Heart Exam: Positive: Rate Normal, Regular Rhythm Abdomen Exam: Positive: Normal bowel sounds, Soft, Tenderness Extremity Exam: Negative: Edema Neuro Exam: Positive: Normal Speech Psych Exam: Positive: Mental status NL, Mood NL, Oriented x 3 Vital Signs/I&O Vital Signs Date Time Temp Pulse Resp B/P Pulse Ox O2 Delivery O2 Flow Rate FiO2 04/19/16 04:00 99.7 81 18 128/71 95 Room Air I&O- Last 24 Hours up to 6 AM 04/19/16 05:59 Intake Total 5000 ml Output Total 5950 ml Balance -950 ml Laboratory Data Labs 24H Laboratory Tests 2 04/18/16 10:54: Vancomycin Level Trough 9.7L 04/19/16 06:44: Anion Gap 7L, Blood Urea Nitrogen 5L, Creatinine 0.90, Sodium Level 140, Potassium Level 3.8, Chloride Level 104, Carbon Dioxide Level 29, Calcium Level 8.6, Glomerular Filtration Rate > 60.0 CBC/BMP Laboratory Tests 04/19/16 06:44 Calcium Level 8.6, Red Blood Count 4.26 L, Mean Corpuscular Volume 88.8, Mean Corpuscular Hemoglobin 30.6, Mean Corpuscular Hemoglobin Concent 34.4, Red Cell Distribution Width 11.9 Microbiology Microbiology 04/17/16 Blood Culture - Preliminary, Resulted No Growth after 48 hours. All Specime... 04/17/16 Blood Culture - Preliminary, Resulted No Growth after 48 hours. All Specime... 04/13/16 Blood Culture - Final, Complete NO GROWTH AFTER 5 DAYS 04/13/16 Blood Culture - Final, Complete NO GROWTH AFTER 5 DAYS 04/12/16 Blood Culture - Final, Complete NO GROWTH AFTER 5 DAYS 04/12/16 Blood Culture - Final, Complete NO GROWTH AFTER 5 DAYS 04/17/16 Gram Stain - Final, Resulted 04/17/16 Sputum Culture, Resulted Pending 04/13/16 Gram Stain - Final, Complete 04/13/16 Sputum Culture - Final, Complete Yeast Like Organism 04/12/16 Influenza Virus Type A Antigen - Final, Complete 04/12/16 Influenza Virus Type B Antigen - Final, Complete 04/17/16 Urine Culture - Final, Complete 04/16/16 Fungal Smear, Received Pending 04/16/16 Fungal Culture, Received Pending 04/16/16 Anaerobic Culture - Final, Complete 04/12/16 Urine Culture - Final, Complete 04/16/16 Acid Fast Stain, Received Pending 04/16/16 Mycobacterial Culture, Received Pending 04/16/16 Gram Stain - Final, Complete 04/16/16 Abscess Culture - Final, Complete Staph.aureus Methicillin Resis LORENZO PARKS MD Apr 19, 2016 07:46
[2016-04-19 08:00] VITALS: BP 116/69
[2016-04-19] MEDS: BENZONATATE 100 MG CAP PO PRN ×2 (09:13→21:56)
[2016-04-19] MEDS: NORCO, ANEXSIA 5/325MG TABLET (HYDROcodone/ACETAMINOPHEN) PO PRN ×3 (09:14→21:57)
[2016-04-19 12:00] VITALS: BP 116/72
[2016-04-19] MEDS: CODEINE SULFATE 30 MG TAB PO PRN ×2 (15:33→20:19)
[2016-04-19 16:00] VITALS: BP 109/69
[2016-04-19] MEDS: traMADol 50 MG TAB PO PRN (19:20)
[2016-04-19 20:00] VITALS: BP 132/64
[2016-04-19] MEDS: ACETAMINOPHEN TAB 650MG DOSE (2X325MG) PO PRN (20:18)
[2016-04-20] VITALS: BP 124/65
[2016-04-20 04:00] VITALS: BP 115/69
[2016-04-20] MEDS: VANCOMYCIN HCL PEDIATRIC 1,500 MG in D5W 500 ML IV SCH ×3 (04:08→20:36)
[2016-04-20] MEDS: NORCO, ANEXSIA 5/325MG TABLET (HYDROcodone/ACETAMINOPHEN) PO PRN ×3 (04:09→22:00)
[2016-04-20 08:00] VITALS: BP 122/74
[2016-04-20 09:35] LABS: MEAN CORPUSCULAR HEMOGLOBIN 30.2 pg (27.0-33.0); MEAN CORPUSCULAR HGB CONC 33.8 g/dl (32.0-36.5); MEAN CORPUSCULAR VOLUME 89.5 fl (80.0-96.0); RED CELL DISTRIBUTION WIDTH 11.9 % (11.5-14.5); WHITE BLOOD COUNT 6.7 K/mm3 (4.0-10.0)
[2016-04-20 10:08] LABS: ANION GAP 6 MEQ/L (8-16); BLOOD UREA NITROGEN 8 MG/DL (7-18); CALCIUM LEVEL 8.4 MG/DL (8.5-10.1); CARBON DIOXIDE LEVEL 31 MEQ/L (21-32); CHLORIDE LEVEL 104 MEQ/L (98-107); CREATININE FOR GFR 0.77 MG/DL (0.70-1.30); GLOMERULAR FILTRATION RATE > 60.0 (>60); GLUCOSE, FASTING 91 MG/DL (70-105); POTASSIUM SERUM 4.2 MEQ/L (3.5-5.1); SODIUM LEVEL 141 MEQ/L (136-145)
[2016-04-20 10:41] LABS: IMMUNOGLOBULIN M 41.9 MG/DL (40-230)
[2016-04-20] MEDS: NS 1,000 ML IV SCH ×2 (10:54→20:36)
[2016-04-20] MEDS: traMADol 50 MG TAB PO PRN ×2 (11:01→20:47)
[2016-04-20 12:46] VITALS: BP 126/82
--- NOTE | 2016-04-20 14:54 | IPNPDOC ---
Date/Time Seen The patient was seen on 04/20/16 at 08:29. Progress Note SUBJECTIVE: Patient is a 35-year-old male with renal phlegmon and abscess. Patient was examined at bedside and found sleeping in bed at 0 degrees. Patient complains that he has developed new onset right upper abdominal pain that started yesterday. The pain does not radiate anywhere but it does exacerbate the back pain he has been having since admission. The pain is constant and nothing seems to make it worse or better. Eating does not make it worse. Pain is described as sharp. He admits to persistent cough and back pain. Patient describes the back pain as dull and achy as compared to when he first came in which he described it as sharp and radiating. Patient tolerates eating solid food now. Denies chest pain, shortness of breath, nausea, vomiting, diarrhea, hematuria and hematochezia. Admits to night sweats. OBJECTIVE: PHYSICAL EXAMINATION: GENERAL: NAD. A&Ox3 HEENT: Normocephalic, atraumatic. Mucous membranes moist. Neck supple. No lymphadenopathy. CARDIOVASCULAR: RRR. Normal S1 and S2. No murmurs, rubs or gallops. RESPIRATORY: Clear to auscultation. No wheezes, rales or rhonchi. ABDOMINAL: Tenderness in right upper quadrant that continues into right lower quadrant. No guarding. No peritoneal signs or ecchymosis. Negative [place] sign. Biopsy site is clean and dry with no erythema or drainage, it is no longer bandaged. Appendectomy scar appreciated. DVT prophylaxis ordered?: No, he does not have any risk factors, ambulation was encouraged. ASSESSMENT AND PLAN: This is a 35 year old male with renal phlegmon and abscess. PROBLEMS: 1. Renal abscess. Aspirate of renal abscess was shown to be MRSA positive. Patient was started on 1,500mg vancomycin IV q8 hours. In last 24 hours, highest temperature reached was 100.2. Infectious disease has been consulted. Patient will remain on IV antibiotics until he clinically improves and is afebrile for 24 hours. At that point, it will be up to Infectious Disease to determine which antibiotic he will be sent home on for continuation of therapy. Patient complains of a new onset right upper abdominal pain that started yesterday. Will do a renal US to evaluate for reaccumulation of abscess vs perirenal involvement. 2. Tuberculosis. Patient has a history of positive PPD and being treated back in 2002. TB Test antigen-NIL was negative. 3. Back Pain. Can be attributed to renal abscess. Patient continues to have back pain but now describes it as dull and achy. Narcotics were de-escalated. Continue Tramadol and [place]. 4. Cough. Patient continues to have chronic cough. Admits to feeling relief with codeine. 5. Genital Ulcers. Lesions seem to be healing. HIV, Chlamydia, Syphilis, Gonorrhea and HSV negative. 6. Lung Nodule. Follow up CT in three months. VS, I&O, 24H, Fishbone VS, I&O, 24H, Fishbone Vital Signs Date Time Temp Pulse Resp B/P Pulse Ox O2 Delivery O2 Flow Rate FiO2 04/20/16 04:39 16 04/20/16 04:00 97.3 74 115/69 97 Room Air I&O- Last 24 Hours up to 6 AM 04/20/16 06:00 Intake Total 3010 ml Output Total 1950 ml Balance 1060 ml Laboratory Tests 2 04/19/16 11:12: Vancomycin Level Trough 16.9 Microbiology 04/17/16 Blood Culture - Preliminary, Resulted No Growth after 72 hours. All specime... 04/17/16 Blood Culture - Preliminary, Resulted No Growth after 72 hours. All specime... 04/13/16 Blood Culture - Final, Complete NO GROWTH AFTER 5 DAYS 04/13/16 Blood Culture - Final, Complete NO GROWTH AFTER 5 DAYS 04/12/16 Blood Culture - Final, Complete NO GROWTH AFTER 5 DAYS 04/12/16 Blood Culture - Final, Complete NO GROWTH AFTER 5 DAYS 04/17/16 Gram Stain - Final, Complete 04/17/16 Sputum Culture - Final, Complete 04/13/16 Gram Stain - Final, Complete 04/13/16 Sputum Culture - Final, Complete Yeast Like Organism 04/12/16 Influenza Virus Type A Antigen - Final, Complete 04/12/16 Influenza Virus Type B Antigen - Final, Complete 04/17/16 Urine Culture - Final, Complete 04/16/16 Fungal Smear, Received Pending 04/16/16 Fungal Culture, Received Pending 04/16/16 Anaerobic Culture - Final, Complete 04/12/16 Urine Culture - Final, Complete 04/16/16 Acid Fast Stain, Received Pending 04/16/16 Mycobacterial Culture, Received Pending 04/16/16 Gram Stain - Final, Complete 04/16/16 Abscess Culture - Final, Complete Staph.aureus Methicillin Resis GME ATTESTATION GME ATTESTATION My preceptor for this patient encounter was physically present in the building during the encounter and was fully available. As needed, all aspects of the patient interview, examination, medical decision making process, and medical care plan development were reviewed and approved by the preceptor. Preceptor is aware and concurs with the plan as stated in the body of this note and will attest to such by his/her cosignature. ALENA CONCEPCION DO Apr 20, 2016 09:02
--- NOTE | 2016-04-20 15:01 | IPNPDOC ---
Assessment/Plan Date Seen The patient was seen on 04/20/16. Patient Summary This is a 35 y/o M w/ a 4.5cm right renal abscess. His abscess culture is positive for MRSA. He has been on vancomycin for 4 days now. His WBC has normalized. Even though his symptoms are not much better, he clinically appears better w/ a normal WBC since starting vancomycin and only having low grade fevers. He had a renal US done today given the increased abdominal pain. The read is still pending. Despite the clinical improvement, I suspect it will be several days before his pain completely goes away. Problems (1) Renal abscess Status: Acute (2) Latent tuberculosis Status: Chronic (3) Male genital ulcer Status: Chronic (4) TBI (traumatic brain injury) Status: Chronic (5) Lung nodule seen on imaging study Status: Acute Plan/VTE VTE Prophylaxis Ordered?: No VTE Exclusion Mechanical Proph: Low Risk for VTE Plan - continue vancomycin per ID - pain management per primary team - will continue to follow - no indication for other interventions at this time unless patient appears to not be improving clinically (WBC starts rising and/or he starts spiking high fevers again) despite being on appropriate antibiotic coverage Diet: Continue Current Activity: Continue Current Diagnostics: Repeat Labs in AM Anticipated Discharge: Home Subjective Review oF Systems Chief Complaint Right Renal Abscess Events since Last Encounter Patient notes an increase in right abdominal pain o/n. He denies n/v. He notes that he still has fevers and chills every evening. Objective Physical Examination General Exam: : Alert: Cooperative: No Acute Distress Heart Exam: Positive: Rate Normal, Regular Rhythm ABDOMEN EXAM: : Soft: Tenderness (mild to moderate right lower abdominal tenderness) Skin Exam: : Nl turgor and temperature Psych Exam: : Mental status NL: Mood NL Other physical findings right CVA tenderness Vital Signs/I&O Vital Signs Date Time Temp Pulse Resp B/P Pulse Ox O2 Delivery O2 Flow Rate FiO2 04/20/16 12:46 98.6 87 18 126/82 96 Room Air I&O- Last 24 Hours up to 6 AM 04/20/16 06:00 Intake Total 3010 ml Output Total 1950 ml Balance 1060 ml Laboratory Data Labs 24H Laboratory Tests 2 04/20/16 09:13: Immunoglobulin A 736.0H, Immunoglobulin G 842, Immunoglobulin M 41.9 04/20/16 09:17: Anion Gap 6L, Blood Urea Nitrogen 8#, Creatinine 0.77, Sodium Level 141, Potassium Level 4.2, Chloride Level 104, Carbon Dioxide Level 31, Calcium Level 8.4L, Glomerular Filtration Rate > 60.0 CBC/BMP Laboratory Tests 04/20/16 09:17 Calcium Level 8.4 L, Red Blood Count 4.43, Mean Corpuscular Volume 89.5, Mean Corpuscular Hemoglobin 30.2, Mean Corpuscular Hemoglobin Concent 33.8, Red Cell Distribution Width 11.9 Microbiology Microbiology 04/17/16 Blood Culture - Preliminary, Resulted No Growth after 72 hours. All specime... 04/17/16 Blood Culture - Preliminary, Resulted No Growth after 72 hours. All specime... 04/13/16 Blood Culture - Final, Complete NO GROWTH AFTER 5 DAYS 04/13/16 Blood Culture - Final, Complete NO GROWTH AFTER 5 DAYS 04/12/16 Blood Culture - Final, Complete NO GROWTH AFTER 5 DAYS 04/12/16 Blood Culture - Final, Complete NO GROWTH AFTER 5 DAYS 04/17/16 Gram Stain - Final, Complete 04/17/16 Sputum Culture - Final, Complete 04/13/16 Gram Stain - Final, Complete 04/13/16 Sputum Culture - Final, Complete Yeast Like Organism 04/12/16 Influenza Virus Type A Antigen - Final, Complete 04/12/16 Influenza Virus Type B Antigen - Final, Complete 04/17/16 Urine Culture - Final, Complete 04/16/16 Fungal Smear, Received Pending 04/16/16 Fungal Culture, Received Pending 04/16/16 Anaerobic Culture - Final, Complete 04/12/16 Urine Culture - Final, Complete 04/16/16 Acid Fast Stain, Received Pending 04/16/16 Mycobacterial Culture, Received Pending 04/16/16 Gram Stain - Final, Complete 04/16/16 Abscess Culture - Final, Complete Staph.aureus Methicillin Resis VICKI GRAY MD Apr 20, 2016 15:01
--- NOTE | 2016-04-20 15:04 | REP ---
Urinary tract sonography: History: Worsening right flank pain. Status post MRSA renal abscess drainage. Comparison study April 15, 2016. Findings: Scanning demonstrates persistent complex hypoechoic lesion at the junction of the upper and middle pole of the right kidney. This measures 2.5 x 2.0 x 1.8 cm. It is smaller in size and a little more echogenic since it was aspirated. No perinephric fluid is appreciated. No hydronephrosis is seen. No other evidence of renal carbuncle noted. Right kidney measures 13.4 x 5.0 x 5.0 cm. Left renal dimensions are 12.5 x 4.5 x 6.5 cm. Prostate appears somewhat enlarged. Emptying ureteral jets are confirmed on color Doppler interrogation of the bladder lumen bilaterally. Impression: 2.5 cm renal carbuncle persists although it is improved in size. No perinephric fluid or other fluid collection seen. No hydronephrosis seen. Signed by Emilio Mckay MD 04/20/2016 03:35 P
[2016-04-20 16:00] VITALS: BP 129/79
[2016-04-20] MEDS: CODEINE SULFATE 30 MG TAB PO PRN ×2 (17:58→22:00)
[2016-04-20 20:00] VITALS: BP 122/65
[2016-04-20] MEDS: BENZONATATE 100 MG CAP PO PRN (20:47)
[2016-04-21] VITALS: BP 120/61
[2016-04-21 04:00] VITALS: BP 96/51
[2016-04-21] MEDS: VANCOMYCIN HCL PEDIATRIC 1,500 MG in D5W 500 ML IV SCH ×3 (04:04→19:55)
[2016-04-21 07:24] LABS: MEAN CORPUSCULAR HEMOGLOBIN 30.8 pg (27.0-33.0); MEAN CORPUSCULAR HGB CONC 34.6 g/dl (32.0-36.5); MEAN CORPUSCULAR VOLUME 89.1 fl (80.0-96.0); RED CELL DISTRIBUTION WIDTH 12.1 % (11.5-14.5); WHITE BLOOD COUNT 7.1 K/mm3 (4.0-10.0)
--- NOTE | 2016-04-21 07:31 | IPN ---
DATE: 04/20/2016, 5 P.M.: Neal is doing a little better. His temperature is mostly at night up to 100.2 max. He complains of increasing abdominal pain. States that pain has migrated from the back to the right upper quadrant. He denies any trouble urinating. No dysuria, hematuria. He still has a cough which is mostly nonproductive. He denies any nausea, vomiting or diarrhea. PHYSICAL EXAM: Temperature is 99.1. Pulse is 83, respirations 18, blood pressure 129/79, O2 sat 95% on room air. Heart: Normal S1, S2 with no murmurs, rubs or gallops. Lungs are clear. No wheezes, rales or rhonchi. Abdomen is soft, tender in the right upper quadrant. Back: Right CVA tenderness. Extremities: No clubbing, cyanosis or edema. Multiple tattoos. No abscesses. LABORATORY DATA: White count is 6.7, hemoglobin 13.4, hematocrit 39.7, platelets 392. Sodium 141, potassium 4.2, chloride 104, bicarb 31, BUN 8, creatinine 0.7, glucose 91, calcium 8.4. Abscess culture on 04/16 was positive for Methicillin-resistant staphylococcus aureus (MRSA) with an MATIAS to vancomycin of 1. Vancomycin trough is 16.9. QuantiFERON TB Gold was negative. RPR, HIV was negative. Herpes PCR 1 and 2 were negative. I am not sure if these were done from the lesion or from serum. Total IgG level 842 normal, IgA 736 elevated, IgM 41.9. Followup renal ultrasound shows a 2.5 cm renal carbuncle persists, although it has decreased in size. No perinephric fluid or other collections. No hydronephrosis seen. IMPRESSION: 1. Right renal abscess due to Methicillin-resistant staphylococcus aureus (MRSA ) on IV vancomycin, doing better currently on a dose of 1.5 grams every 8 hours. 2. History of latent TB with QuantiFERON TB Gold was negative. The patient has been treated in the past with 9 months of isoniazid. 3. Chronic cough seems to be exacerbated by renal abscess. Could be from chronic nerve irritation. The patient had bronchoscopy done about 2 years ago which was negative. 4. Rule out immunosuppression. The etiology of his renal abscess is somewhat unclear to me as the patient did not have bacteremia. He had over the past 10 years 4 episode of recurrent MRSA infection but that has not made him that sick to cause of renal abscess. Immunosuppression should be ruled out and therefore immunoglobulin levels were checked. They were normal except for elevated IgA. HIV is negative. IGG subsets are pending. Echocardiogram to rule out endocarditis was done on 04/13 and was normal. Ejection fraction 60%. No vegetation seen on cardiac valves. There was a question of a moderate elevation of pulmonary artery systolic pressure. No pericardial effusion noted. Normal LV diastolic dysfunction. PLAN : Repeat CRP in the morning. Continue IV vancomycin. Once the patient is ready for discharge, would suggest oral linezolid 600 mg twice daily for another 2 weeks. I will treat this renal abscess for at least 3-4 weeks and repeat ultrasound in a couple weeks. Case has been discussed with Dr. Santillan. BAHMAN
[2016-04-21 07:46] LABS: ANION GAP 8 MEQ/L (8-16); BLOOD UREA NITROGEN 7 MG/DL (7-18); CALCIUM LEVEL 8.6 MG/DL (8.5-10.1); CARBON DIOXIDE LEVEL 29 MEQ/L (21-32); CHLORIDE LEVEL 105 MEQ/L (98-107); CREATININE FOR GFR 0.75 MG/DL (0.70-1.30); GLOMERULAR FILTRATION RATE > 60.0 (>60); GLUCOSE, FASTING 97 MG/DL (70-105); POTASSIUM SERUM 4.1 MEQ/L (3.5-5.1); SODIUM LEVEL 142 MEQ/L (136-145)
[2016-04-21] MEDS ORDERED: ZYVO100T PO (07:47)
[2016-04-21 08:00] VITALS: BP 118/76
[2016-04-21] MEDS: NORCO, ANEXSIA 5/325MG TABLET (HYDROcodone/ACETAMINOPHEN) PO PRN ×2 (12:18→22:20)
[2016-04-21 16:00] VITALS: BP 109/71
[2016-04-21] MEDS: traMADol 50 MG TAB PO PRN (17:03)
--- NOTE | 2016-04-21 18:44 | IPNPDOC ---
Date/Time Seen The patient was seen on 04/21/16 at 08:55. Progress Note SUBJECTIVE: Patient is a 35 male with renal abscess and phlegmon. Patient was examined at bedside and found at 0 degrees in bed in a relaxed position. No acute events overnight. Patient admits that his abdominal pain has gotten a little better but he still continues to have persistent back pain. He continues to tolerate food and is ambulating. Denies nausea, vomitting, diarrhea, shortness of breath, chest pain, and hematuria. OBJECTIVE: PHYSICAL EXAMINATION: GENERAL: NAD. A&OX3 HEENT: Normocephalic, atraumatic. EOMI. Neck supple. Mucous membranes moist CARDIOVASCULAR: RRR. Normal S1 and S2. No murmurs, rubs or gallops RESPIRATORY: Clear to auscultation. No rales. rhonchi or wheezes. ABDOMINAL: Soft, non-tender. No peritoneal signs, ecchymosis or masses. EXTREMITIES: No cyanosis, edema or pallor. IMAGING: Renal ultrasound showed 2.5 cm carbuncle remains, but is improved in size. DVT prophylaxis ordered?: No, but patient does not have risk factors. Ambulation encouraged. ASSESSMENT AND PLAN: This is a 35 year old male with renal abscess and phlegmon. PROBLEMS: 1. Renal abscess. Aspirate of renal abscess was shown to be MRSA positive. Patient was started on 1.5g vancomycin IV q8 hours. In last 24 hours,patient has been afebrile has a normal WBC. Renal ultrasound showed improvement in kidney abscess and no extrarenal involvement. Patient admits abdominal pain has gotten a little better. Infectious disease has been consulted and recommended to continue vancomycin until patient has improved clinically and is ready for discharge. Upon discharge, patient will receive oral antibiotic Linezolid as per recommendations from ID. It is recommended patient have follow up renal ultrasound in a few weeks. The etiology of the renal MRSA abscess is uncertain. Possible immunosuppression is being investigated. Patient tolerating PO intake well, IV Fluids discontinued. 2. Tuberculosis. Patient has a history of positive PPD and being treated back in 2002. TB Test antigen-NIL was negative. 3. Back Pain. Can be attributed to renal abscess. Patient continues to have back pain but now describes it as dull and achy. Narcotics were de-escalated. Continue Tramadol and [place] PRN. 4. Cough. Patient continues to have chronic cough. Admits to feeling relief with codeine. 5. Genital Ulcers. Vessicles were crusted over and healing before sample was taken, serum was taken for analysis instead. HIV, Chlamydia, Syphilis, Gonorrhea and HSV negative. 6. Lung Nodule. Follow up CT in three months. VS, I&O, 24H, Fishbone VS, I&O, 24H, Fishbone Vital Signs Date Time Temp Pulse Resp B/P Pulse Ox O2 Delivery O2 Flow Rate FiO2 04/21/16 04:00 96.4 59 18 96/51 97 Room Air I&O- Last 24 Hours up to 6 AM 04/21/16 05:59 Intake Total 2740 ml Output Total 2375 ml Balance 365 ml Laboratory Tests 2 04/20/16 09:13: Immunoglobulin A 736.0H, Immunoglobulin G 842, Immunoglobulin M 41.9 04/20/16 09:17: Anion Gap 6L, Blood Urea Nitrogen 8#, Creatinine 0.77, Sodium Level 141, Potassium Level 4.2, Chloride Level 104, Carbon Dioxide Level 31, Calcium Level 8.4L, Glomerular Filtration Rate > 60.0 04/21/16 07:00: Anion Gap 8, Blood Urea Nitrogen 7, Creatinine 0.75, Sodium Level 142, Potassium Level 4.1, Chloride Level 105, Carbon Dioxide Level 29, Calcium Level 8.6, Glomerular Filtration Rate > 60.0, C-Reactive Protein, Quantitative 7.70H Laboratory Tests 04/20/16 09:17 Calcium Level 8.4 L, Red Blood Count 4.43, Mean Corpuscular Volume 89.5, Mean Corpuscular Hemoglobin 30.2, Mean Corpuscular Hemoglobin Concent 33.8, Red Cell Distribution Width 11.9 04/21/16 07:00 Calcium Level 8.6, Red Blood Count 4.44, Mean Corpuscular Volume 89.1, Mean Corpuscular Hemoglobin 30.8, Mean Corpuscular Hemoglobin Concent 34.6, Red Cell Distribution Width 12.1 Microbiology 04/17/16 Blood Culture - Preliminary, Resulted No Growth after 72 hours. All specime... 04/17/16 Blood Culture - Preliminary, Resulted No Growth after 72 hours. All specime... 04/13/16 Blood Culture - Final, Complete NO GROWTH AFTER 5 DAYS 04/13/16 Blood Culture - Final, Complete NO GROWTH AFTER 5 DAYS 04/12/16 Blood Culture - Final, Complete NO GROWTH AFTER 5 DAYS 04/12/16 Blood Culture - Final, Complete NO GROWTH AFTER 5 DAYS 04/17/16 Gram Stain - Final, Complete 04/17/16 Sputum Culture - Final, Complete 04/13/16 Gram Stain - Final, Complete 04/13/16 Sputum Culture - Final, Complete Yeast Like Organism 04/12/16 Influenza Virus Type A Antigen - Final, Complete 04/12/16 Influenza Virus Type B Antigen - Final, Complete 04/17/16 Urine Culture - Final, Complete 04/16/16 Fungal Smear, Received Pending 04/16/16 Fungal Culture, Received Pending 04/16/16 Anaerobic Culture - Final, Complete 04/12/16 Urine Culture - Final, Complete 04/16/16 Acid Fast Stain, Received Pending 04/16/16 Mycobacterial Culture, Received Pending 04/16/16 Gram Stain - Final, Complete 04/16/16 Abscess Culture - Final, Complete Staph.aureus Methicillin Resis ALENA CONCEPCION DO Apr 21, 2016 09:10
[2016-04-21 20:00] VITALS: BP 105/59
[2016-04-21] MEDS: BENZONATATE 100 MG CAP PO PRN (22:19)
[2016-04-22] VITALS: BP 113/63
[2016-04-22] MEDS: VANCOMYCIN HCL PEDIATRIC 1,500 MG in D5W 500 ML IV SCH (04:14)
[2016-04-22 08:21] LABS: IgG SERUM (part of Subclasses) 869 mg/dL (700-1600); IgG Subclass 1 446 mg/dL (422-1292); IgG Subclass 2 313 mg/dL (117-747); IgG Subclass 3 30 mg/dL (41-129); IgG Subclass 4 138 mg/dL (1-291)
[2016-04-22 08:30] VITALS: BP 111/68
[2016-04-22] MEDS: NORCO, ANEXSIA 5/325MG TABLET (HYDROcodone/ACETAMINOPHEN) PO PRN (08:43)
[2016-04-22] MEDS ORDERED: TRAM50TA2 PO (10:26)
[2016-04-22] MEDS ORDERED: HYDR-3713 PO (10:26)
--- NOTE | 2016-04-22 18:47 | IPNPDOC ---
Date/Time Seen The patient was seen on 04/22/16 at 09:07. Progress Note SUBJECTIVE: Patient is a 35 year old male with renal phlegmon and abscess. Patient was examined at bedside and found sleeping at 0 degrees. No acute events overnight. Patient admits that his abdominal pain has significantly decreased and and his back pain has mostly subsided. He admits to still having a cough. Denies nausea, vomiting, diarrhea, chest pain and shortness of breath. Patient refused to have blood drawn this morning. No fever in the last 48 hours. 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 Patient also inquired about medication for pain upon discharge. OBJECTIVE: PHYSICAL EXAMINATION: GENERAL: NAD. A+Ox3. HEENT: Normocephalic, atraumatic. EOMI. CARDIOVASCULAR: RRR. Normal S1 and S2. No murmurs, rubs or gallops. RESPIRATORY: Clear to auscultation. No rhonchi, rales or wheezes. ABDOMINAL: Soft, non-tender. Right flank was warm to palpation. No ecchymosis, peritoneal signs or masses. Normoactive bowel sounds. DVT prophylaxis ordered?: No, patient has no risk factors. Ambulation encouraged. ASSESSMENT AND PLAN: This is a 35 year old male with renal abscess and phlegmon. PROBLEMS: 1. Renal abscess. Aspirate of renal abscess was shown to be MRSA positive. Patient was started on 1.5g vancomycin IV q8 hours. In last 48 hours,patient has been afebrile has a normal WBC. Renal ultrasound showed improvement in kidney abscess and no extrarenal involvement. Patient admits abdominal pain has mostly subsided and back pain has improved significantly. Patient will be taken off IV vancomycin and switched to oral Linezolid in preparation for discharge. It is recommended patient have follow up renal ultrasound in a few weeks. The etiology of the renal MRSA abscess is uncertain. Immunoglobulins were normal except for an elevated IgA, immunosuppression unlikely . Patient tolerating PO intake well, IV Fluids discontinued. 2. Tuberculosis. Patient has a history of positive PPD and being treated back in 2002. TB Test antigen-NIL was negative. 3. Back Pain. Can be attributed to renal abscess. Patient reports back pain has improved significantly. Narcotics were de-escalated. Continue [place] PRN. 4. Cough. Patient continues to have chronic cough. Admits to feeling relief with codeine. 5. Genital Ulcers. Vesicles were crusted over and healing before sample was taken, serum was taken for analysis instead. HIV, Chlamydia, Syphilis, Gonorrhea and HSV negative. 6. Lung Nodule. Follow up CT in three months. VS, I&O, 24H, Fishbone VS, I&O, 24H, Fishbone Vital Signs Date Time Temp Pulse Resp B/P Pulse Ox O2 Delivery O2 Flow Rate FiO2 04/22/16 08:43 18 04/22/16 08:30 97.9 70 111/68 98 Room Air I&O- Last 24 Hours up to 6 AM 04/22/16 06:00 Intake Total 4385 ml Balance 4385 ml Laboratory Tests 2 04/21/16 11:24: Vancomycin Level Trough 20.0 Microbiology 04/17/16 Blood Culture - Final, Complete NO GROWTH AFTER 5 DAYS 04/17/16 Blood Culture - Final, Complete NO GROWTH AFTER 5 DAYS 04/13/16 Blood Culture - Final, Complete NO GROWTH AFTER 5 DAYS 04/13/16 Blood Culture - Final, Complete NO GROWTH AFTER 5 DAYS 04/12/16 Blood Culture - Final, Complete NO GROWTH AFTER 5 DAYS 04/12/16 Blood Culture - Final, Complete NO GROWTH AFTER 5 DAYS 04/17/16 Gram Stain - Final, Complete 04/17/16 Sputum Culture - Final, Complete 04/13/16 Gram Stain - Final, Complete 04/13/16 Sputum Culture - Final, Complete Yeast Like Organism 04/12/16 Influenza Virus Type A Antigen - Final, Complete 04/12/16 Influenza Virus Type B Antigen - Final, Complete 04/17/16 Urine Culture - Final, Complete 04/16/16 Fungal Smear - Final, Resulted 04/16/16 Fungal Culture, Resulted Pending 04/16/16 Anaerobic Culture - Final, Complete 04/12/16 Urine Culture - Final, Complete 04/16/16 Acid Fast Stain - Final, Resulted 04/16/16 Mycobacterial Culture, Resulted Pending 04/16/16 Gram Stain - Final, Complete 04/16/16 Abscess Culture - Final, Complete Staph.aureus Methicillin Resis GME ATTESTATION GME ATTESTATION My preceptor for this patient encounter was physically present in the building during the encounter and was fully available. As needed, all aspects of the patient interview, examination, medical decision making process, and medical care plan development were reviewed and approved by the preceptor. Preceptor is aware and concurs with the plan as stated in the body of this note and will attest to such by his/her cosignature. ALENA CONCEPCION DO Apr 22, 2016 09:24
--- NOTE | 2016-04-22 19:40 | DS.PDOC ---
Discharge Summary General Date of Admission Apr 13, 2016 at 02:25 Date of Discharge Apr 22, 2016 at 12:35 Discharge Summary PRIMARY CARE PHYSICIAN: Shawn [facility] [place] ATTENDING AT TIME OF DISCHARGE: Dr. Elina Christopher DO DISCHARGE DIAGNOS(E)S: 1. Right renal abscess 2. 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 Right flank pain 4. Chronic cough 5. Genital vesicles 6. Lung nodule HPI & HOSPITAL COURSE: Mr. Deleon who presented to the hospital with right flank pain that had been present for the past 6 weeks prior to admission. CT scan on admission revealed a right intrarenal multifocal phlegmon associated with a well-defined hypodense area within the central aspect of the lesion. Differential diagnosis for this included a renal abscess or other infectious etiology, neoplasm, extrapulmonary TB (in light of his previous history of positive PPD), endocarditis with septic emboli. Therefore, multiple diagnostic tests were performed. He was found to have a right renal abscess which grew positive for MRSA. He switched originally empirically treated with Rocephin, then switched over to IV vancomycin. Dr. Villatoro of infectious disease and Dr. Santillan of urology were both consulted during this hospitalization. Throughout his stay he did spike fevers every night , however once he started on vancomycin his Tmax decreased every day, and his white count trended down into the normal range, his CRP was also trending down as well. On today the day of discharge, he is feeling significantly better, although he still does suffer from some right flank pain. He'll be switched over to oral Linezolid to be taken for 2 weeks after discharged. He appears stable for discharge at this time. Please see today's progress note for further details on physical exam and review of systems. DIAGNOSTIC TESTS: CT of the abdomen and pelvis with contrast showed right pyelonephritis, with intrarenal multifocal phlegmon formation Transthoracic Echocardiogram was performed which did not reveal any vegetations , and in LVEF of 60%, and it was suggestive of moderate elevation of pulmonary artery systolic pressure. Scrotal ultrasound was performed which revealed no evidence of intratesticular mass lesion, however he did have a small left-sided varicocele and small right- sided hydrocele, otherwise no other significant findings. CT scan of the chest without contrast revealed a 10 mm noncalcified nodule in the apical segment of the left lower lobe which represents a new finding compared to prior examination. Recommendation is a follow-up three-month CT scan. Renal ultrasound was also performed which was compatible with abdomen and pelvis CT findings of a phlegmon versus mass. Aspiration of the right renal abscess revealed that it was filled with pus, which grew MRSA Right kidney core biopsies performed at the same time as aspiration were sent for pathology and read as: cores of kidney parenchyma and associated abundant acute inflammatory exudate/pus Blood tests performed were: Syphilis serology, chlamydia, HSV 1, HSV-2, HIV-1 and 2, Neisseria gonorrhea, TB quantifieron gold, tumor marker AFP, tumor marker hCG, all of which were found to be negative Immunoglobulin levels were also checked and found to be within normal limits with the exception of an elevated IgA. DISPOSITION: Home DISCHARGE INSTRUCTIONS: Follow-up with primary care provider at [facility] on [place] within 7-10 days, and follow-up with Dr. Villatoro of infectious disease within 10- 14 days. May return to work on 04/27/2016, otherwise, activity as tolerated, diet as tolerated. If symptoms return, or if you experience worsening of your symptoms, please call your doctor or return to the emergency department. ITEMS THAT NEED OUTPATIENT FOLLOWUP: CT scan of the chest in 3 months as a follow-up for apical lung nodule. Please obtain CBC, BMP, CRP lab work prior to appointment with PCP and/or Dr. Villatoro infectious disease, whichever comes first. My preceptor for this patient encounter was physically present in the building during the encounter and was fully available. As needed, all aspects of the patient interview, examination, medical decision making process, and medical care plan development were reviewed and approved by the preceptor. Preceptor is aware and concurs with the plan as stated in the body of this note and will attest to such by his/her cosignature. Medications Scheduled Linezolid (Zyvox) 600 Mg Tab 600 MG PO BID Scheduled PRN (Lunesta) 1 Mg Tab 1 MG PO PRN PRN PRN SLEEP Acetaminophen/Hydrocodone (Hydrocodone/Acetaminophen 5-325 mg) 1 Tab Tab 1 TAB PO Q6HP PRN PRN PAIN Diazepam (Diazepam) 5 Mg Tab 5 MG PO PRN PRN PRN MUSCLE SPASMS Allergies Coded Allergies: No Known Drug Allergy (Unverified Allergy, Unknown, 04/13/16) ALENA CONCEPCION DO Apr 22, 2016 19:40
== END 2016-04-22 12:35 | disposition home or self-care (01) | DRG 690 ==
LOC: M ED 20:32 → M ED INP 04-13 02:25 → M PED 04-13 03:00
PROVIDERS: ADMIT Internal Medicine; ATTEND Internal Medicine
PROC: 0TB03ZX Excision of Right Kidney, Percutaneous Approach, Diagnostic (ICD-10-PCS; principal; 2016-04-16)
DX: N15.1 Renal and perinephric abscess (principal); I48.91 Unspecified atrial fibrillation; R91.8 Other nonspecific abnormal finding of lung field; I86.1 Scrotal varices; N43.3 Hydrocele, unspecified; Z79.899 Other long term (current) drug therapy

== ENCOUNTER → 2016-05-06 | Outpatient (REF) | payer OTHER ==
[~2016-05-06] MED LIST changes: +HYDR-3713 PO; -HYDR1TAB97 PO; +ZYVO100T PO
[2016-05-06 14:13] LABS: BASO # 0.1 K/mm3 (0.0-0.2); BASO % 0.8 % (0.0-1.0); EOS # 0.4 K/mm3 (0.0-0.50); EOS % 4.9 % (0.0-3.0); LARGE UNSTAINED CELL # 0.2 K/mm3 (0.0-0.4); LARGE UNSTAINED CELL % 2.9 % (0.0-4.0); LYMPH # 2.1 K/mm3 (1.5-4.5); MEAN CORPUSCULAR HEMOGLOBIN 29.5 pg (27.0-33.0); MEAN CORPUSCULAR HGB CONC 33.4 g/dl (32.0-36.5); MEAN CORPUSCULAR VOLUME 88.3 fl (80.0-96.0); MONO # 0.4 K/mm3 (0.0-0.8); MONO % 5.4 % (0.0-5.0); NEUTROPHILS # 4.1 K/mm3 (1.8-7.7); NEUTROPHILS % 57.1 % (36.0-66.0); PLATELET COUNT, AUTOMATED 315 k/mm3 (150-450); RED CELL DISTRIBUTION WIDTH 13.2 % (11.5-14.5); WHITE BLOOD COUNT 7.2 K/mm3 (4.0-10.0)
[2016-05-06 14:26] LABS: ALBUMIN/GLOBULIN RATIO 1.08 (1.00-1.93); ALKALINE PHOSPHATASE 83 U/L (45-117); ALT/SGPT 35 U/L (12-78); ANION GAP 6 MEQ/L (8-16); AST/SGOT 12 U/L (15-37); BILIRUBIN,TOTAL 0.4 MG/DL (0.2-1.0); BLOOD UREA NITROGEN 15 MG/DL (7-18); CALCIUM LEVEL 9.1 MG/DL (8.5-10.1); CARBON DIOXIDE LEVEL 30 MEQ/L (21-32); CHLORIDE LEVEL 105 MEQ/L (98-107); GLOMERULAR FILTRATION RATE > 60.0 (>60); GLUCOSE, FASTING 85 MG/DL (70-105); POTASSIUM SERUM 3.9 MEQ/L (3.5-5.1); SODIUM LEVEL 141 MEQ/L (136-145); TOTAL PROTEIN 7.7 GM/DL (6.4-8.2)
[2016-05-06 14:40] LABS: ERYTHROCYTE SEDIMENTATION RATE 6 mm/hr (0-15)
== END ==
LOC: M SFHCPLAZ 12:45
PROVIDERS: ATTEND Internal Medicine Infectious Disease
DX: A49.02 Methicillin resistant Staphylococcus aureus infection, unspecified site (principal)
CPT/HCPCS: 36415; 80053; 85025; 85652; 86140; G0463

== ENCOUNTER → 2016-05-08 | Outpatient (CLI) | payer OTHER ==
--- NOTE | 2016-05-08 16:18 | REP ---
Urinary tract sonography: History: Right-sided renal abscess. Comparison study is from 04/20/2016. Findings: Scanning at the level of the urinary bladder shows no abnormality. Renal cortical echogenicity pattern is normal. No hydronephrosis is seen on either side. Right renal dimensions are 12.3 x 5.3 x 5.0 cm. Left kidney measures 12.2 x 4.9 x 6.2 cm. The previously noted heterogeneous hypoechoic lesion in the upper pole right kidney is no longer apparent. There is a subtle indentation of the renal cortical margin at the upper pole right kidney question early scarring. No new renal mass or other focal lesion is seen. Impression: The previously noted hypoechoic lesion at the upper pole right kidney is no longer apparent sonographically consistent with improvement. Signed by Emilio Mckay MD 05/08/2016 07:29 P
== END ==
LOC: M RAD 15:24
PROVIDERS: ATTEND Internal Medicine Infectious Disease
DX: N15.1 Renal and perinephric abscess (principal)

== ENCOUNTER 2016-05-26 06:53 | Emergency (ER) | payer OTHER ==
--- NOTE | 2016-05-26 07:27 | EDDOCDS ---
Physician Documentation [facility] Name: Neal Deleon Age: 36 yrs Sex: Male : 1980 Arrival Date: 05/26/2016 Time: 06:53 Bed I4 / M4 Private MD: Disposition: 05/26/16 07:18 Discharged to Home/Self Care. Impression: Cutaneous abscess of left upper limb - left axilla. - Condition is Stable. - Discharge Instructions: Abscess. - Prescriptions for Clindamycin HCl 300 mg Oral Capsule - take 1 capsule by ORAL route every 6 hours; 40 capsule. [place] 5- 325 mg Oral Tablet - take 1 tablet by ORAL route every 6 hours As needed MDD: 4 tabs; 20 tablet. - Medication Reconciliation, Work Release Form - 1 day, Local Pharmacy Hours form. - Follow up: Emergency Department; When: As needed; Reason: Worsening of conditions. Follow up: Madelyn Villatoro; When: 2 - 3 days; Reason: Wound/Symptom Recheck, Recheck today's complaints, Continuance of care. - Problem is new. - Symptoms are unchanged. - Notes: WARM PACK THIS AREA A FEW TIMES A DAY, FOR 10-15 MINUTES AT A TIME WITH A WARM WET WASH CLOTH. CALL DR. VILLATORO'S OFFICE TO FOLLOW UP WITH HER IN THE NEXT FEW DAYS. RETURN TO THE ER WITH ANY WORSENING SYMPTOMS, INCLUDING FEVER/CHILLS, NAUSEA, VOMITING. Historical: - Allergies: No known drug Allergies; - Home Meds: 1. none - PMHx: MRSA; - PSHx: renal biopsy; - Social history: Smoking status: Patient states former smoker of tobacco. No barriers to communication noted, The patient speaks fluent Tajik. - Family history: Not pertinent. - : The pt / caregiver states he / she is not on anticoagulants. Home medication list is obtained from the patient. - Exposure Risk Screening:: None identified. Vital Signs: 05/26 06:56 BP 127 / 82; Pulse 66; Resp 18 S; Temp 98.6(TE); Pulse Ox 99% on R/A; Weight 85.73 kg / af2 189 lbs (R); Height 70 in. (177.80 cm) (R); Pain 7/10; 06:56 Body Mass Index 27.12 (85.73 kg, 177.80 cm) af2 Signatures: [place], Ayleen, RN RN hs1 Cori Santana, KALIA PAVictor Manuel dt4 Divya Palacios RN RN af2 MTDD
--- NOTE | 2016-05-26 07:27 | EDDOCDS ---
Nurse's Notes [facility] Name: Neal Deleon Age: 36 yrs Sex: Male : 1980 Arrival Date: 05/26/2016 Time: 06:53 Bed I4 / M4 Private MD: Diagnosis: Cutaneous abscess of left upper limb-left axilla Presentation: 05/26 06:57 Presenting complaint: Patient states: possible MRSA infection to left axilla. treated af2 inpt recently for MRSA infection in kidneys. hard knot under arm, hot, and sore to touch. Adult Sepsis Screening: The patient does not have new or worsening altered mentation. Patient's respiratory rate is less than 22. Systolic blood pressure is greater than 100. Patient has a qSOFA score of 0- Negative Sepsis Screen. Suicide/Homicide risk assessment- the patient denies having any suicidal and/or homicidal ideations and does not present with any other emotional, behavioral or mental health complaints. 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 Transition of care: patient was not received from another setting of care. 06:57 Acuity: BI Level 3 af2 06:57 Method Of Arrival: Walkin/Carried/Asstd af2 Triage Assessment: 06:59 General: Appears in no apparent distress, Behavior is appropriate for age. Pain: af2 Location: left arm Pain currently is 7 out of 10 on a pain scale. HIV screening NA for this visit Offered previously. Neurological: Level of Consciousness is awake, alert. Respiratory: Airway is patent Respiratory effort is even, unlabored. Derm: Skin is pink, warm & dry. Historical: - Allergies: No known drug Allergies; - Home Meds: 1. none - PMHx: MRSA; - PSHx: renal biopsy; - Social history: Smoking status: Patient states former smoker of tobacco. No barriers to communication noted, The patient speaks fluent Irish. - Family history: Not pertinent. - : The pt / caregiver states he / she is not on anticoagulants. Home medication list is obtained from the patient. - Exposure Risk Screening:: None identified. Screenin:26 Screening information is obtained from the patient. Fall risk: No risks identified. hs1 Assistance ADL's: requires no assistance with activities of daily living. Abuse/DV Screen: The patient / caregiver reports he/she is: not in a situation that causes fear, pain or injury. Nutritional screening: No deficits noted. Advance Directives: There is no active DNR order. home support is adequate. Assessment: 07:02 General: Appears in no apparent distress. Pain: Location: left axilla. Respiratory: No hs1 deficits noted. Derm: Skin is red, Skin temperature is hot Swollen area noted on left axilla. Vital Signs: 06:56 BP 127 / 82; Pulse 66; Resp 18 S; Temp 98.6(TE); Pulse Ox 99% on R/A; Weight 85.73 kg af2 (R); Height 70 in. (177.80 cm) (R); Pain 7/10; 06:56 Body Mass Index 27.12 (85.73 kg, 177.80 cm) af2 Vitals: 06:56 Log In Time: May 26, 2016 at 06:55. af2 ED Course: 06:54 Patient visited by Soraya Alicia Reg. hs2 06:54 Patient moved to Waiting hs2 06:56 Patient moved to Triage 1 af2 06:58 Triage Initiated af2 07:00 Patient visited by Divya Palacios RN. af2 07:00 Patient moved to I4 / M4 af2 07:08 Cori Santana PA-C [facility]. dt4 07:08 Marcus Call DO is Attending Physician. dt4 07:09 Patient visited by Cori Santana PA-C. dt4 07:17 Madelyn Villatoro is Referral Physician. dt4 07:26 The patient / caregiver is instructed regarding the plan of care and ED course. hs1 07:26 No IV's were initiated during this patient's visit. No procedures done that require hs1 assistance. Order Results: There are currently no results for this order. Outcome: 07:18 Discharge ordered by Provider. dt4 07:26 Discharge Assessment: Patient awake, alert and oriented x 3. No cognitive and/or hs1 functional deficits noted. Patient verbalized understanding of disposition instructions. patient administered narcotics - no. The following High Risk Discharge criteria are identified: None. Discharged to home ambulatory. Condition: stable. Discharge instructions given to patient, Instructed on discharge instructions, follow up and referral plans. medication usage, wound care, Demonstrated understanding of instructions, medications, Pt was receptive of discharge instructions/ teaching. Prescriptions given X 2. Work note provided to patient. No special radiology studies were completed. Property sent home with patient. 07:26 Patient left the ED. hs1 Signatures: Ayleen Whitley RN RN hs1 Cori Santana PA-C PA-C dt4 Divya Palacios RN RN af2 Soraya Alicia, Reg Reg hs2 MTDD
--- NOTE | 2016-05-28 08:27 | EDDOCDS ---
Physician Documentation [facility] Name: Neal Deleon Age: 36 yrs Sex: Male : 1980 Arrival Date: 05/26/2016 Time: 06:53 Bed I4 / M4 Private MD: Disposition: 05/26/16 07:18 Discharged to Home/Self Care. Impression: Cutaneous abscess of left upper limb - left axilla. - Condition is Stable. - Discharge Instructions: Abscess. - Prescriptions for Clindamycin HCl 300 mg Oral Capsule - take 1 capsule by ORAL route every 6 hours; 40 capsule. [place] 5- 325 mg Oral Tablet - take 1 tablet by ORAL route every 6 hours As needed MDD: 4 tabs; 20 tablet. - Medication Reconciliation, Work Release Form - 1 day, Local Pharmacy Hours form. - Follow up: Emergency Department; When: As needed; Reason: Worsening of conditions. Follow up: Madelyn Villatoro; When: 2 - 3 days; Reason: Wound/Symptom Recheck, Recheck today's complaints, Continuance of care. - Problem is new. - Symptoms are unchanged. - Notes: WARM PACK THIS AREA A FEW TIMES A DAY, FOR 10-15 MINUTES AT A TIME WITH A WARM WET WASH CLOTH. CALL DR. VILLATORO'S OFFICE TO FOLLOW UP WITH HER IN THE NEXT FEW DAYS. RETURN TO THE ER WITH ANY WORSENING SYMPTOMS, INCLUDING FEVER/CHILLS, NAUSEA, VOMITING. Historical: - Allergies: No known drug Allergies; - Home Meds: 1. none - PMHx: MRSA; - PSHx: renal biopsy; - Social history: Smoking status: Patient states former smoker of tobacco. No barriers to communication noted, The patient speaks fluent [place]. - Family history: Not pertinent. - : The pt / caregiver states he / she is not on anticoagulants. Home medication list is obtained from the patient. - Exposure Risk Screening:: None identified. Vital Signs: 05/26 06:56 BP 127 / 82; Pulse 66; Resp 18 S; Temp 98.6(TE); Pulse Ox 99% on R/A; Weight 85.73 kg / af2 189 lbs (R); Height 70 in. (177.80 cm) (R); Pain 7/10; 06:56 Body Mass Index 27.12 (85.73 kg, 177.80 cm) af2 MDM: 08:04 Financial registration complete. mm15 08:05 [facility] Payment Agreement was scanned into [employer] and attached to record. mm15 13:21 T-Sheet-- Draft Copy was scanned into [employer] and attached to record. gb Signatures: Lissette Carter, Reg Reg gb Ayleen Whitley RN RN hs1 Roe Ware mm15 Cori Santana PA-C PAVictor Manuel dt4 Divya Palacios RN RN af2 The chart was reviewed and I authenticate all verbal orders and agree with the evaluation and treatment provided.Attachments: 08:05 [facility] Payment Agreement mm15 13:21 T-Sheet-- Draft Copy gb Chart Complete MTDD
--- NOTE | 2016-05-28 08:27 | EDDOCDS ---
Nurse's Notes [facility] Name: Neal Deleon Age: 36 yrs Sex: Male : 1980 Arrival Date: 05/26/2016 Time: 06:53 Bed I4 / M4 Private MD: Diagnosis: Cutaneous abscess of left upper limb-left axilla Presentation: 05/26 06:57 Presenting complaint: Patient states: possible MRSA infection to left axilla. treated af2 inpt recently for MRSA infection in kidneys. hard knot under arm, hot, and sore to touch. Adult Sepsis Screening: The patient does not have new or worsening altered mentation. Patient's respiratory rate is less than 22. Systolic blood pressure is greater than 100. Patient has a qSOFA score of 0- Negative Sepsis Screen. Suicide/Homicide risk assessment- the patient denies having any suicidal and/or homicidal ideations and does not present with any other emotional, behavioral or mental health complaints. 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 Transition of care: patient was not received from another setting of care. 06:57 Acuity: BI Level 3 af2 06:57 Method Of Arrival: Walkin/Carried/Asstd af2 Triage Assessment: 06:59 General: Appears in no apparent distress, Behavior is appropriate for age. Pain: af2 Location: left arm Pain currently is 7 out of 10 on a pain scale. HIV screening NA for this visit Offered previously. Neurological: Level of Consciousness is awake, alert. Respiratory: Airway is patent Respiratory effort is even, unlabored. Derm: Skin is pink, warm & dry. Historical: - Allergies: No known drug Allergies; - Home Meds: 1. none - PMHx: MRSA; - PSHx: renal biopsy; - Social history: Smoking status: Patient states former smoker of tobacco. No barriers to communication noted, The patient speaks fluent Peruvian. - Family history: Not pertinent. - : The pt / caregiver states he / she is not on anticoagulants. Home medication list is obtained from the patient. - Exposure Risk Screening:: None identified. Screenin:26 Screening information is obtained from the patient. Fall risk: No risks identified. hs1 Assistance ADL's: requires no assistance with activities of daily living. Abuse/DV Screen: The patient / caregiver reports he/she is: not in a situation that causes fear, pain or injury. Nutritional screening: No deficits noted. Advance Directives: There is no active DNR order. home support is adequate. Assessment: 07:02 General: Appears in no apparent distress. Pain: Location: left axilla. Respiratory: No hs1 deficits noted. Derm: Skin is red, Skin temperature is hot Swollen area noted on left axilla. Vital Signs: 06:56 BP 127 / 82; Pulse 66; Resp 18 S; Temp 98.6(TE); Pulse Ox 99% on R/A; Weight 85.73 kg af2 (R); Height 70 in. (177.80 cm) (R); Pain 7/10; 06:56 Body Mass Index 27.12 (85.73 kg, 177.80 cm) af2 Vitals: 06:56 Log In Time: May 26, 2016 at 06:55. af2 ED Course: 06:54 Patient visited by Soraya Alicia Reg. hs2 06:54 Patient moved to Waiting hs2 06:56 Patient moved to Triage 1 af2 06:58 Triage Initiated af2 07:00 Patient visited by Divya Palacios RN. af2 07:00 Patient moved to I4 / M4 af2 07:08 Cori Santana PA-C is PHCP. dt4 07:08 Marcus Call DO is Attending Physician. dt4 07:09 Patient visited by Cori Santana PA-C. dt4 07:17 Madelyn Villatoro is Referral Physician. dt4 07:26 The patient / caregiver is instructed regarding the plan of care and ED course. hs1 07:26 No IV's were initiated during this patient's visit. No procedures done that require hs1 assistance. 08:05 [facility] Payment Agreement was scanned into [employer] and attached to record. mm15 13:21 T-Sheet-- Draft Copy was scanned into [employer] and attached to record. gb Order Results: There are currently no results for this order. Outcome: 07:18 Discharge ordered by Provider. dt4 07:26 Discharge Assessment: Patient awake, alert and oriented x 3. No cognitive and/or hs1 functional deficits noted. Patient verbalized understanding of disposition instructions. patient administered narcotics - no. The following High Risk Discharge criteria are identified: None. Discharged to home ambulatory. Condition: stable. Discharge instructions given to patient, Instructed on discharge instructions, follow up and referral plans. medication usage, wound care, Demonstrated understanding of instructions, medications, Pt was receptive of discharge instructions/ teaching. Prescriptions given X 2. Work note provided to patient. No special radiology studies were completed. Property sent home with patient. 07:26 Patient left the ED. hs1 Signatures: Lissette Carter, Reg Reg gb Ayleen Whitley RN RN hs1 Roe Ware mm15 Cori Santana, PA-C PA-C dt4 Divya PalaciosRN RN af2 Soraya Alicia, Reg Reg hs2 Chart Complete MTDD
--- NOTE | 2016-05-28 08:27 | EDDOCDS ---
Physician Documentation [facility] Name: Neal Deleon Age: 36 yrs Sex: Male : 1980 Arrival Date: 05/26/2016 Time: 06:53 Bed I4 / M4 Private MD: Disposition: 05/26/16 07:18 Discharged to Home/Self Care. Impression: Cutaneous abscess of left upper limb - left axilla. - Condition is Stable. - Discharge Instructions: Abscess. - Prescriptions for Clindamycin HCl 300 mg Oral Capsule - take 1 capsule by ORAL route every 6 hours; 40 capsule. [place] 5- 325 mg Oral Tablet - take 1 tablet by ORAL route every 6 hours As needed MDD: 4 tabs; 20 tablet. - Medication Reconciliation, Work Release Form - 1 day, Local Pharmacy Hours form. - Follow up: Emergency Department; When: As needed; Reason: Worsening of conditions. Follow up: Madelyn Villatoro; When: 2 - 3 days; Reason: Wound/Symptom Recheck, Recheck today's complaints, Continuance of care. - Problem is new. - Symptoms are unchanged. - Notes: WARM PACK THIS AREA A FEW TIMES A DAY, FOR 10-15 MINUTES AT A TIME WITH A WARM WET WASH CLOTH. CALL DR. VILLATORO'S OFFICE TO FOLLOW UP WITH HER IN THE NEXT FEW DAYS. RETURN TO THE ER WITH ANY WORSENING SYMPTOMS, INCLUDING FEVER/CHILLS, NAUSEA, VOMITING. Historical: - Allergies: No known drug Allergies; - Home Meds: 1. none - PMHx: MRSA; - PSHx: renal biopsy; - Social history: Smoking status: Patient states former smoker of tobacco. No barriers to communication noted, The patient speaks fluent Albanian. - Family history: Not pertinent. - : The pt / caregiver states he / she is not on anticoagulants. Home medication list is obtained from the patient. - Exposure Risk Screening:: None identified. Vital Signs: 05/26 06:56 BP 127 / 82; Pulse 66; Resp 18 S; Temp 98.6(TE); Pulse Ox 99% on R/A; Weight 85.73 kg / af2 189 lbs (R); Height 70 in. (177.80 cm) (R); Pain 7/10; 06:56 Body Mass Index 27.12 (85.73 kg, 177.80 cm) af2 MDM: 08:04 Financial registration complete. mm15 08:05 [facility] Payment Agreement was scanned into [employer] and attached to record. mm15 13:21 T-Sheet-- Draft Copy was scanned into [employer] and attached to record. gb Signatures: Lissette Carter, Reg Reg gb Ayleen Whitley RN RN hs1 Roe Ware mm15 Cori Santana PA-C PAVictor Manuel dt4 Divya Palacios RN RN af2 The chart was reviewed and I authenticate all verbal orders and agree with the evaluation and treatment provided.Attachments: 08:05 [facility] Payment Agreement mm15 13:21 T-Sheet-- Draft Copy gb Chart Complete MTDD
== END 2016-05-26 07:26 | disposition home or self-care (01) ==
LOC: M ED 06:53
DX: L02.412 Cutaneous abscess of left axilla (principal); Z86.14 Personal history of Methicillin resistant Staphylococcus aureus infection; Z87.891 Personal history of nicotine dependence

== ENCOUNTER → 2016-07-21 | Outpatient (CLI) | payer OTHER ==
[~2016-07-21] MED LIST changes: +ISOVUE-370 76% 100ML VIAL (Q9967) As Ordered ONE
--- NOTE | 2016-07-21 10:23 | REP ---
CT study abdomen and pelvis without and with IV contrast: History: Perinephric abscess. Comparison is made with prior CT studies from April 13, 2016. CT contrast dose: 100 mL of Isovue 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 There are clips in the right lower quadrant post appendectomy. The lung bases are clear on today's CT study. I note that CT study of the chest from April 13, 2016 reported a 10 mm noncalcified pulmonary nodule requiring followup. It is above the of the imaging field of view for today's abdominal CT study. The liver and the spleen remain normal in size and homogeneous in texture. The gallbladder and the pancreas are unchanged and unremarkable. No adrenal lesion is seen. The left kidney is morphologically intact except for the presence of an intrarenal calculus in the lower pole collecting system measuring 5 mm in greatest diameter. This is unchanged. No hydronephrosis is seen on either side. In the right kidney there is some mild cortical atrophy and residual cortical fibrosis at the upper pole where the prior study from April 13, 2016 showed early renal carbuncle formation and lobar nephronia. These changes have resolved. Parenchymal enhancement pattern is otherwise normal. No retroperitoneal mass or adenopathy is seen. Small and large intestinal bowel loops are unremarkable. There are clips adjacent to the cecum post appendectomy. No abdominal wall defect is seen. There is traditionalized lumbosacral junction with sacralization of the left transverse process at L5 and fusion between it and the body of the sacrum on the left side. No bony destructive lesion is seen. Impression: 1. The previously noted lobar nephronia changes in the upper pole right kidney have resolved except for some postinflammatory fibrosis which is mild. 2. Intrarenal nephrolithiasis lower pole left kidney persists with a 5 mm calculus. No hydronephrosis. 3. Post appendectomy. 4. 10 mm pulmonary nodule previously noted in the superior segment of the left lower lobe is above the field of view for today's study. Followup had been recommended. Signed by Emilio Mckay MD 07/21/2016 03:37 P
== END ==
LOC: M RAD 07:57
PROVIDERS: ATTEND Urology
DX: N15.1 Renal and perinephric abscess (principal)

== ENCOUNTER → 2016-08-04 | Outpatient (REF) | payer OTHER ==
[~2016-08-04] MED LIST changes: -ISOVUE-370 76% 100ML VIAL (Q9967) As Ordered ONE
== END ==
LOC: M SFHCPLAZ 15:27
PROVIDERS: ATTEND Internal Medicine Infectious Disease
DX: A49.02 Methicillin resistant Staphylococcus aureus infection, unspecified site (principal)
CPT/HCPCS: 87081; G0463

== ENCOUNTER → 2016-08-17 | Outpatient (CLI) | payer OTHER ==
--- NOTE | 2016-08-17 16:29 | REP ---
Clinical: Follow-up pulmonary nodule. Comparison: 04/13/2016. Findings: Previously identified 10 mm noncalcified nodule in the apical left lower lobe is essentially resolved with only minimal residual presumed scarring noted (image 38). Remainder of lung chi are well-aerated, symmetric, and clear. No further consolidation nodule or mass lesion appreciated. No pleural effusion/reaction or pneumothorax. Tracheobronchial tree is patent. Mediastinum including thoracic aorta is grossly unremarkable. No obvious adenopathy. Small hiatal hernia at the gastroesophageal junction cannot be excluded. Surrounding musculoskeletal structures are intact. Impression: 1. Near complete resolution to the previously noted noncalcified nodule in the apical left lower lobe. Only minimal residual scarring is appreciated. 2. No acute, significant mediastinal or pleuroparenchymal process. Signed by Dario Redman MD 08/17/2016 04:21 P
== END ==
LOC: M RAD 15:42
PROVIDERS: ATTEND Internal Medicine Infectious Disease
DX: R91.1 Solitary pulmonary nodule (principal)

== ENCOUNTER → 2017-05-13 | Outpatient (REF) | payer OTHER ==
[2017-05-13 12:22] LABS: PROGRESSIVE MOTILITY (a) 68 % (>=32); SEMEN APPEARANCE OPAQUE (OPAQUE); SEMEN VISCOSITY LIQUID (LIQUID); SEMEN VOLUME 1.9 ml (4.0-5.0); SEMEN pH 7.5 (7.0-8.0); SPERM ABNORMAL FORMS WBC'S NOTED; SPERM CONCENTRATION 33.2 M/ml (>=15.0); WBC CONCENTRATION >1 M/ml (<=1 M/ml)
[2017-05-13 12:23] LABS: % NORMAL FORMS 20 % (>=4); IMMOTILITY 19 %; NON PROGRESSIVE MOTILITY (c) 13 %; TOTAL FUNCTIONAL 16.9 M/Ejac.; TOTAL MOTILITY 81 % (>=40); TOTAL PROGRESSIVE SPERM 43.1 M/Ejac.
== END ==
LOC: M SMT 12:15
DX: N46.9 Male infertility, unspecified (principal)

== ENCOUNTER 2018-06-28 16:47 | Emergency (ER) | payer OTHER ==
[~2018-06-28] VITALS: Ht 177.8 cm; Wt 99.9 kg
[~2018-06-28 16:47] MED LIST changes: -ZYVO100T PO; +ZYVO1TAB PO
[2018-06-28] MEDS ORDERED: KETOROLAC 30 MG/ML VIAL (J1885) IV ONE (19:30)
[2018-06-28] MEDS ORDERED: ONDANSETRON 4MG/2ML VIAL (J2405) IV ONE (19:30)
[2018-06-28] MEDS ORDERED: PANTOPRAZOLE 40MG INJ (PROTONIX) (C9113) IV ONE (19:30)
[2018-06-28 20:00] LABS: BASO # 0.1 10^3/uL (0.0-0.2); BASO % 0.9 % (0.0-1.0); EOS # 0.6 10^3/uL (0.0-0.50); HEMATOCRIT 49.3 % (42.0-52.0); LYMPH # 2.8 10^3/uL (1.5-4.5); LYMPH % 35.2 % (24.0-44.0); MEAN CORPUSCULAR HEMOGLOBIN 30.8 pg (27.0-33.0); MEAN CORPUSCULAR HGB CONC 34.5 g/dl (32.0-36.5); MEAN CORPUSCULAR VOLUME 89.3 fl (80.0-96.0); MONO # 0.6 10^3/uL (0.0-0.8); MONO % 7.5 % (0.0-5.0); NEUTROPHILS # 3.9 10^3/uL (1.8-7.7); NEUTROPHILS % 49.1 % (36.0-66.0); PLATELET COUNT, AUTOMATED 288 10^3/uL (150-450); RED BLOOD COUNT 5.52 10^6/uL (4.30-6.10)
[2018-06-28 20:31] LABS: ALBUMIN 3.9 GM/DL (3.2-5.2); ALT/SGPT 46 U/L (12-78); AMYLASE 32 U/L (25-115); BILIRUBIN,DIRECT 0.1 MG/DL (0.0-0.2); BILIRUBIN,TOTAL 0.5 MG/DL (0.2-1.0); BLOOD UREA NITROGEN 13 MG/DL (7-18); CALCIUM LEVEL 8.6 MG/DL (8.5-10.1); CARBON DIOXIDE LEVEL 30 MEQ/L (21-32); CHLORIDE LEVEL 105 MEQ/L (98-107); GLOMERULAR FILTRATION RATE > 60.0 (>60); GLUCOSE, FASTING 92 MG/DL (70-100); LIPASE 73 U/L (73-393); POTASSIUM SERUM 4.2 MEQ/L (3.5-5.1); SODIUM LEVEL 140 MEQ/L (136-145)
--- NOTE | 2018-06-28 20:36 | REP ---
Clinical: Epigastric and abdominal pain. Technique: Upright view of the chest with supine and upright views of the abdomen and pelvis. Findings: Frontal upright view of the chest demonstrates no acute cardiopulmonary process or free air below the diaphragm to suspect pneumoperitoneum. Supine and upright views of the abdomen and pelvis demonstrate nonspecific bowel gas pattern without obstruction or perforation. No organomegaly. No abnormal calcifications. Skeletal structures normal for age. Evidence of prior appendectomy. Impression: Nonspecific bowel gas pattern. Electronically Signed by Dario Redman MD 06/28/2018 08:27 P
[2018-06-28] MEDS ORDERED: PROT1TAB2 PO (21:17)
[2018-06-28] MEDS ORDERED: CARA1TAB6 PO (21:17)
[2018-06-28 21:24] VITALS: BP 96/56
== END 2018-06-28 21:36 | disposition home or self-care (01) ==
LOC: M ED 16:47
DX: R10.9 Unspecified abdominal pain (principal)
CPT/HCPCS: 74021; 80048; 80076; 82150; 83690; 85025; 96374; 96375; 99284; C9113; J1885; J2405

== ENCOUNTER 2021-06-22 08:38 | Emergency (ER) | payer OTHER, SELFPAY ==
[~2021-06-22] VITALS: Ht 177.8 cm; Wt 96.4 kg
[~2021-06-22 08:38] MED LIST changes: +CARA1TAB6 PO; +PROT1TAB2 PO
[2021-06-22] MEDS ORDERED: KETOROLAC 30 MG/ML 1ML VIAL IV ONE ×2 (09:20→11:15)
[2021-06-22] MEDS ORDERED: NS 1,000 ML IV ONE (09:20)
[2021-06-22 10:09] LABS: BASO # 0.1 10^3/uL (0.0-0.2); BASO % 0.9 % (0.0-1.0); EOS # 0.5 10^3/uL (0.0-0.5); EOS % 8.5 % (0.0-3.0); HEMATOCRIT 47.8 % (42.0-52.0); HEMOGLOBIN 16.3 g/dl (13.5-17.5); LYMPH # 1.7 10^3/uL (1.5-5.0); LYMPH % 25.9 % (24.0-44.0); MEAN CORPUSCULAR HEMOGLOBIN 30.2 pg (27.0-33.0); MEAN CORPUSCULAR HGB CONC 34.1 g/dl (32.0-36.5); MEAN CORPUSCULAR VOLUME 88.7 fl (80.0-96.0); MONO # 0.6 10^3/uL (0.0-0.8); MONO % 8.8 % (2.0-8.0); NEUTROPHILS # 3.6 10^3/uL (1.5-8.5); NEUTROPHILS % 55.6 % (36.0-66.0); PLATELET COUNT, AUTOMATED 270 10^3/uL (150-450); RED BLOOD COUNT 5.39 10^6/uL (4.30-6.10); WHITE BLOOD COUNT 6.4 10^3/uL (4.0-10.0)
[2021-06-22 10:35] LABS: ALBUMIN 3.6 GM/DL (3.2-5.2); ALT/SGPT 37 U/L (12-78); BILIRUBIN,DIRECT 0.1 MG/DL (0.0-0.2); BILIRUBIN,TOTAL 0.5 MG/DL (0.2-1.0); BLOOD UREA NITROGEN 16 MG/DL (7-18); CALCIUM LEVEL 8.6 MG/DL (8.5-10.1); CARBON DIOXIDE LEVEL 28 MEQ/L (21-32); CHLORIDE LEVEL 111 MEQ/L (98-107); CREATININE FOR GFR 0.93 MG/DL (0.70-1.30); GLOMERULAR FILTRATION RATE > 60.0 (>60); GLUCOSE, FASTING 84 MG/DL (70-100); POTASSIUM SERUM 4.3 MEQ/L (3.5-5.1); SODIUM LEVEL 143 MEQ/L (136-145); TOTAL PROTEIN 6.9 GM/DL (6.4-8.2)
[2021-06-22] MEDS ORDERED: CEFP200T PO (11:12)
[2021-06-22 11:28] VITALS: BP 126/76
== END 2021-06-22 11:46 | disposition home or self-care (01) ==
LOC: M ED 08:38
DX: N12 Tubulo-interstitial nephritis, not specified as acute or chronic (principal)
CPT/HCPCS: 74176; 80047; 80048; 80076; 81001; 85025; 87088; 87186; 96361; 96374; 96376; 99284; J1885

== ENCOUNTER → 2022-08-25 | Outpatient (CLI) | payer OTHER ==
[~2022-08-25] MED LIST changes: +CEFP200T PO; +GASTROGRAFIN SOLUTION 30ML As Ordered ONE; +ISOVUE-370 76% 100ML VIAL As Ordered ONE
== END ==
LOC: M RAD 06:54
PROVIDERS: ATTEND Physician Assistant Medical
DX: R10.9 Unspecified abdominal pain (principal); R14.0 Abdominal distension (gaseous)
CPT/HCPCS: 74178; Q9963; Q9967

== ENCOUNTER → 2022-09-04 | Outpatient (CLI) | payer OTHER ==
[~2022-09-04] MED LIST changes: -GASTROGRAFIN SOLUTION 30ML As Ordered ONE; -ISOVUE-370 76% 100ML VIAL As Ordered ONE
== END ==
LOC: M WUC 15:00
PROVIDERS: ATTEND Nurse Practitioner Family
DX: R05.9 Cough, unspecified (principal)

== ENCOUNTER → 2024-06-22 | Outpatient (CLI) | payer OTHER ==
[~2024-06-22] MED LIST changes: +METHACHOLINE KIT (6 VIAL.NEB PREMIX) INH ONE
== END ==
LOC: M CARPUL 07:44
PROVIDERS: ATTEND Internal Medicine Pulmonary Disease
DX: R06.00 Dyspnea, unspecified (principal)

== ENCOUNTER → 2025-03-22 | Outpatient (CLI) | payer OTHER ==
[~2025-03-22] MED LIST changes: -METHACHOLINE KIT (6 VIAL.NEB PREMIX) INH ONE
== END ==
LOC: M WUC 12:52
DX: R05.1 Acute cough (principal)

== ENCOUNTER → 2025-04-03 | Outpatient (CLI) | payer OTHER | LOC: M WUC 12:54 | DX: R05.1 Acute cough (principal) ==